=== PATIENT | female | born 1960 | race Caucasian/White ===

== ENCOUNTER 2019-04-14 08:39 | Outpatient (CLI) | payer BC, SELFPAY ==
--- NOTE | ~2019-04-14 | MM_ITS ---
EXAMINATION: MM screening [place] BI w jayna HISTORY: Screening mammogram TECHNIQUE: Craniocaudal and mediolateral oblique 3-D tomosynthesis images were obtained and synthetic 2-D images were generated. CAD analysis was submitted and interpreted. COMPARISON: 11/06/2014 bilateral digital screening mammogram BREAST PARENCHYMAL COMPOSITION: The breasts are heterogeneously dense, which may obscure small masses . FINDINGS: Stable fibroglandular asymmetry. There is no evidence of suspicious mass, calcification, or architectural distortion to suggest malignancy in either breast. There has been no suspicious interv al change. IMPRESSION: 1. No mammographic evidence of malignancy. 2. Recommend routine screening mammography in one year. BI-RADS Category 2: Benign finding(s). Reviewed, dictated and finalized at location A. 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
--- NOTE | ~2019-04-14 | DEXA_ITS ---
Bone Density Report Name: Lorie Mcrae Age: 59 Sex: Female Ethnicity: White Date of : 1960 Indication: postmenopausal; height loss; hysterectomy; Referring Provider: Lisset Napier Study: Bone densitometry was performed. Exam Date: April 14, 2019 Accession number: [id number] Bone Density: Region BMD T-score Z-score Classification AP Spine (L1-L4) 0.923 -1.1 0.2 Osteopenia Femoral Neck (Left) 0.639 -1.9 -0.7 Osteopenia Total Hip (Left) 0.711 -1.9 -1.0 Osteopenia Total Hip Bilateral Avg 0.672 -2.2 -1.4 Osteopenia Femoral Neck (Right) 0.545 -2.7 -1.5 Osteoporosis Total Hip (Right) 0.632 -2.5 -1.7 Osteoporosis World Health Organization criteria for BMD impression classify patients as: Normal (T-score at or above -1.0), Osteopenia (T-score between -1.0 and -2.5), or Osteoporosis (T-score at or below -2.5). 10-year Fracture Risk: FRAX not reported because: Some T-score for Spine Total or Hip Total or Femoral Neck at or below -2.5 Clinical Information Provided by Patient: Has the following medical conditions: Hysterectomy Patient maximum height was 68.5 Menopause Age: 34 No regular weight bearing exercise Does not regularly consume dairy products Onset of menses at age 14 Number of children 1 Impression: The patient has osteoporosis, based on the Right Femoral Neck T-score. Discussion: INCREASED RISK OF FRACTURE. BONE DENSITY IS UNDESIRABLY LOW AT ONE OR MORE SKELETAL SITES, CONSISTENT WITH POSTMENOPAUSAL OSTEOPOROSIS. This patient's lowest T-score meets the World Health Organization's (WHO) criteria for osteoporosis at one or more sites (T-score -2.5 or below). In untreated patients, the risk of osteoporotic fracture increases approximately two-fold for each 1.0 SD decrease in T-score. Low bone density is not the only risk factor for fracture; also consider factors such as patient's age, frailty or poor health, risk of falling, risk of injury, previous osteoporotic fracture, family history of osteoporosis, cigarette smoking, low body weight, etc. Not everyone with low bone mineral density has osteoporosis; osteomalacia and other metabolic bone disorders should also be considered. Patients who have osteoporosis should be evaluated for specific diseases and conditions (secondary causes) that may cause or contribute to bone loss. The [place] Association of Clinical Endocrinologists (AACE) and National Osteoporosis Foundation (NOF) recommend pharmacologic intervention for all postmenopausal women whose T-score is in this range. The patient should follow a healthful lifestyle (good nutrition with adequate calcium and vitamin D, and appropriate weight-bearing exercise). Follow-Up: Consider a repeat BMD and Vertebral Fracture Assessment (VFA) exam in 2 years or sooner if medically necessary, to reassess this patient'
== END 2019-04-14 08:40 | disposition home or self-care (01) ==
LOC: ANHIMG 08:42
PROVIDERS: PCP Internal Medicine; Visit Provider Internal Medicine
DX: Z12.31 Encounter for screening mammogram for malignant neoplasm of breast (principal); Z78.0 Asymptomatic menopausal state; M85.89 Other specified disorders of bone density and structure, multiple sites; M81.0 Age-related osteoporosis without current pathological fracture
CPT/HCPCS: 77063; 77067; 77080

== ENCOUNTER 2019-07-17 06:17 | Outpatient (CLI) | payer MEDICARE, SELFPAY | END 2019-07-17 06:18 | disposition home or self-care (01) | PROVIDERS: PCP Internal Medicine; Visit Provider Internal Medicine Gastroenterology | DX: Z01.812 Encounter for preprocedural laboratory examination (principal); Z20.828 Contact with and (suspected) exposure to other viral communicable diseases | CPT/HCPCS: 87635; C9803; U0003 ==

== ENCOUNTER 2019-07-19 00:47 | Day surgery (SDC) | payer MEDICARE, SELFPAY ==
[2019-07-14 14:33] VITALS: BMI 21.1
[2019-07-19 09:35] VITALS: BP 118/88; PULSE 97; RESP 18; TEMP 37.3; O2SAT 98
[2019-07-19] MEDS: LACTATED RINGERS 1,000 ML 150 ML IV CONT (09:43)
--- NOTE | 2019-07-19 09:47 | WPDANESEPPF ---
Anes - Initial Pre Proc Eval Procedure: Operation Date: 07/19/19 10:30 Proposed Procedures p Esophagogastroduodenoscopy & Screening Colonoscopy - Mitchel Gottlieb MD Date/Time: 07/19/19 09:47 Surgeon: Mitchel Gottlieb MD Pre Op Diagnosis: Gerd/ Neoplasm Screening Patient Data Age: 59 Gender: F Height: 5 ft 9 in Weight: 64.1 kg Last Vital Signs Temp 99.1 F 07/19/19 09:35 Pulse 97 07/19/19 09:35 Resp 18 07/19/19 09:35 BP 118/88 07/19/19 09:35 Pulse Ox 98 07/19/19 09:35 Allergies Allergy/AdvReac Type Severity Reaction Status Date / Time No Known Allergies Allergy Verified 07/19/19 09:23 Home Medications Medication Instructions Recorded Confirmed Type atorvastatin 10 mg PO DAILY 07/14/19 07/14/19 History bupropion HCl 150 mg PO DAILY 07/14/19 07/14/19 History fluoxetine 40 mg PO DAILY 07/14/19 07/14/19 History Patient hx anesthesia problems: none Family hx anesthesia problems: none PMFSH Past Medical History Medical History (Updated 07/19/19 @ 09:46 by Tiburcio Man MD) Depression GERD (gastroesophageal reflux disease) Stroke L sided at age 26 years, now with residual R sided weakness Surgical History Surgical History History of cholecystectomy Social History Social History Smoking packs per day: 1 Smoking cigarettes per day: 20.0 Years smoked: 40 Smoking pack-years: 40.00 Smoking status: Current every day smoker Tobacco type: cigarettes Second hand tobacco smoke exposure: No Alcohol intake: never Substance use: current Gender identity (if verbalized by the patient): Female Spiritual care concerns: No Agree to blood products: Yes Anes - Eval Final PreProcedure Day of Procedure 07/19/19 09:47 Patient weight: normal Heart: regular rate and rhythm Lungs: clear to auscultation Airway: Mallampati scale class III Neurological: alert and oriented Last oral intake: >/= 8 hours ASA classification: III Emergent: no Anesthetic plan: proceed Anesthesia type and monitoring: general GIVS and standard monitoring Informed Consent: The patient's anesthetic plan and its attendant risks and benefits were discussed with the patient/family/POA. Questions were solicited and answers provided to the satisfaction of the patient/family/POA.
--- NOTE | 2019-07-19 10:23 | PM.HPGS ---
History of Present Illness History of Present Illness Consent: Risks, benefits, and alternatives have been discussed and questions answered. Patient agrees to proceed with procedure. Chief complaint: Gerd/ Neoplasm Screening Narrative: Lorie Mcrae is a 59 year old female GERD taking antacids OTC, personal history of colon polyps and father with rectal cancer, she is due to have another colonoscopy Review of Systems Constitutional: Constitutional: Denies headache(s) and Denies weakness Eyes: Eyes: Denies blurry vision ENT: Reports Normal hearing present, Denies headache(s) and Denies neck pain Cardiovascular: Cardiovascular: Denies chest pain and Denies dyspnea Respiratory: Respiratory: Denies dyspnea Gastrointestinal: Gastrointestinal: Reports no additional gastrointestinal complaints Genitourinary: Genitourinary: Denies dysuria Musculoskeletal: Musculoskeletal: Denies neck pain Integumentary/Breasts: Skin/Breast: Denies dry skin Neurologic: Reports Normal hearing present, Denies headache(s) and Denies weakness Psychiatric: Psychiatric: Denies anxiety Endocrine: Endocrine: Denies change in body appearance Hematologic/Lymphatic: Hematologic/Lymphatic: Denies easy bleeding Allergic/Immunologic: Allergic/Immunologic: Denies urticaria PMFSH Past Medical History Medical History (Updated 07/19/19 @ 10:24 by Mitchel Gottlieb MD) Adenomatous colon polyp Depression Family history of colon cancer in father GERD (gastroesophageal reflux disease) GERD (gastroesophageal reflux disease) Stroke L sided at age 26 years, now with residual R sided weakness Surgical History Surgical History History of cholecystectomy Social History Social History Smoking packs per day: 1 Smoking cigarettes per day: 20.0 Years smoked: 40 Smoking pack-years: 40.00 Smoking status: Current every day smoker Tobacco type: cigarettes Second hand tobacco smoke exposure: No Alcohol intake: never Substance use: current Gender identity (if verbalized by the patient): Female Spiritual care concerns: No Agree to blood products: Yes Meds Home Medications and Allergies Home Medications Medication Instructions Recorded Confirmed Type atorvastatin 10 mg PO DAILY 07/14/19 07/14/19 History bupropion HCl 150 mg PO DAILY 07/14/19 07/14/19 History fluoxetine 40 mg PO DAILY 07/14/19 07/14/19 History Allergies Allergy/AdvReac Type Severity Reaction Status Date / Time No Known Allergies Allergy Verified 07/19/19 09:23 Vital Signs Vital Signs - 24 hr 07/19/19 09:35 Temperature 99.1 F Pulse Rate 97 Respiratory Rate 18 Blood Pressure 118/88 Pulse Oximetry 98 Exam Const: General: comfortable and no acute distress HENMT: General nose exam: Normal nares present Eyes: General: appearance normal, both eyes and all related structures Neck: Neck: no JVD Resp: Auscultation: clear to auscultation bilaterally Cardio: Rate: regular rate Rhythm: regular rhythm GI: Inspection: non-distended GI Palp: Yes Soft to palpation Skin: General skin exam: normal color Neuro: General: gait normal Speech: normal speech Extrem: General: normal to inspection Psych: Mental Status: mental status grossly normal Assessment and Plan Assessment and plan (1) Adenomatous colon polyp: Code(s): D12.6 - Benign neoplasm of colon, unspecified Status: Acute Assessment and Plan: will proceed with colonoscopy (2) Family history of colon cancer in father: Code(s): Z80.0 - Family history of malignant neoplasm of digestive organs Status: Acute (3) GERD (gastroesophageal reflux disease): Code(s): K21.9 - Gastro-esophageal reflux disease without esophagitis Status: Acute Assessment and Plan: egd to assess if esophagitis, etc.
[2019-07-19 11:00] VITALS: BP 96/64; PULSE 65; RESP 16; O2SAT 98
== END 2019-07-19 11:40 | disposition home or self-care (01) ==
PROVIDERS: PCP Internal Medicine; Visit Provider Internal Medicine Gastroenterology
PROC: 0DJ08ZZ Inspection of Upper Intestinal Tract, Via Natural or Artificial Opening Endoscopic (ICD-10-PCS; CPT 43235; principal; 2019-07-19 10:30)
DX: Z12.11 Encounter for screening for malignant neoplasm of colon (principal); D12.4 Benign neoplasm of descending colon; K57.30 Diverticulosis of large intestine without perforation or abscess without bleeding; K64.8 Other hemorrhoids; K21.9 Gastro-esophageal reflux disease without esophagitis; K29.50 Unspecified chronic gastritis without bleeding; D13.0 Benign neoplasm of esophagus; Z80.0 Family history of malignant neoplasm of digestive organs; F32.9 Major depressive disorder, single episode, unspecified; I69.351 Hemiplegia and hemiparesis following cerebral infarction affecting right dominant side; F17.210 Nicotine dependence, cigarettes, uncomplicated
CPT/HCPCS: 45385; 43239; 88305; J2704; J7120

== ENCOUNTER 2020-08-07 09:38 | Outpatient (CLI) | payer MEDICARE, SELFPAY ==
--- NOTE | ~2020-08-07 | MM_ITS ---
EXAMINATION: MM screening [place] BI w jayna HISTORY: Screening mammogram TECHNIQUE: Craniocaudal and mediolateral oblique 3-D tomosynthesis images were obtained and synthetic 2-D images were generated. CAD analysis was submitted and interpreted. COMPARISON: 04/14/2019, 11/06/2014 bilateral digital screening mammogram examinations BREAST PARENCHYMAL COMPOSITION: The breasts are heterogeneously dense, which may obscure small masses . FINDINGS: Approximately 6 mm circumscribed opacity is noted posteriorly in the upper outer quadrant r ight breast, most likely a benign intramammary lymph node (CC Tomosynthesis image 18/55; MLO Tomosynt hesis image /65). There is no evidence of suspicious mass, calcification, or architectural distorti on to suggest malignancy in either breast. There has been no suspicious interval change. IMPRESSION: 1. No mammographic evidence of malignancy. 2. Recommend routine screening mammography in one year. BI-RADS Category 2: Benign finding(s). Reviewed, dictated and finalized at location A.
== END 2020-08-07 09:39 | disposition home or self-care (01) ==
LOC: CHSIMG 09:39
PROVIDERS: PCP Internal Medicine; Visit Provider Internal Medicine
DX: Z12.31 Encounter for screening mammogram for malignant neoplasm of breast (principal)
CPT/HCPCS: 77063; 77067

== ENCOUNTER 2020-11-18 16:34 | Outpatient (CLI) | payer MEDICARE, SELFPAY ==
[2020-11-18 17:59] LABS: SARS-CoV-2 RNA PCR Positive (Negative)
== END 2020-11-18 16:35 | disposition home or self-care (01) ==
LOC: CHSLAB 16:37
PROVIDERS: PCP Internal Medicine; Visit Provider Internal Medicine
DX: U07.1 COVID-19 (principal)
CPT/HCPCS: C9803; U0003; U0005

== ENCOUNTER 2021-08-11 08:22 | Outpatient (CLI) | payer MEDICARE, SELFPAY ==
--- NOTE | ~2021-08-11 | MM_ITS ---
EXAMINATION: MM screening [place] BI w jayna HISTORY: Screening TECHNIQUE: Craniocaudal and mediolateral oblique 3-D tomosynthesis images were obtained and synthetic 2-D images were generated. CAD analysis was submitted and interpreted. COMPARISON: No prior mammogram is available for comparison at this institution. BREAST PARENCHYMAL COMPOSITION: The breasts are extremely dense, which lowers the sensitivity of mamm ography FINDINGS: There are scattered asymmetries in the outer aspect of the right breast. The left breast is stable without evidence for malignancy. IMPRESSION: 1. Developing right breast asymmetries. 2. Additional mammographic views and possible breast ultrasound are recommended. BI-RADS Category 0: Incomplete: Needs additional imaging evaluation. Reviewed, dictated and finalized at location A. IMPRESSION: 1. Developing right breast asymmetries. 2. Additional mammographic views and possible breast ultrasound are recommended . BI-RADS Category 0: Incomplete: Needs additional imaging evaluation.
== END 2021-08-11 08:23 | disposition home or self-care (01) ==
LOC: CHSIMG 08:23
PROVIDERS: PCP Internal Medicine; Visit Provider Internal Medicine
DX: Z12.31 Encounter for screening mammogram for malignant neoplasm of breast (principal)
CPT/HCPCS: 77063; 77067

== ENCOUNTER 2021-08-21 08:35 | Outpatient (CLI) | payer MEDICARE, SELFPAY ==
--- NOTE | ~2021-08-21 | MMUS_ITS ---
EXAMINATION: MM diagnostic [place] RT w jayna, US breast RT limited HISTORY: Scattered asymmetries in the outer aspect of right breast were reported on 08/11/2021 screeni ng mammogram TECHNIQUE: Additional 3-D tomosynthesis images of the right breast were performed and synthetic 2-D i mages were generated. CAD analysis was submitted and interpreted. High resolution upper outer and low er-outer quadrant right breast ultrasound was performed. COMPARISON: 08/11/2021 bilateral screening mammogram FINDINGS: MAMMOGRAPHIC FINDINGS: There is somewhat nodular appearing heterogeneously dense stroma. There is suggestion of a reniform m ass of approximately 3 x 6 mm dimension in the posterior upper outer right breast, possibly an intram ammary lymph node (MLO Tomosynthesis image 9/58).. Approximately 2.7 x 4.9 mm circumscribed opacity suggestive of lymph node is noted in the outer mid r ight breast (MLO Tomosynthesis image 9/58). Otherwise no suspicious mass or architectural distortion, skin thickening or retraction is detected. ULTRASOUND: 7:00 2 cm from nipple: Approximately 2 by 4.6 mm lymph node. 10:00 5 cm from nipple: 3.2 x 6.5 x 4.5 mm lymph node No suspicious mass or shadowing is detected. IMPRESSION: 1. Benign findings 2. Routine annual mammographic screening is recommended BI-RADS Category 2: Benign finding(s). Reviewed, dictated and finalized at location A. IMPRESSION: 1. Benign findings 2. Routine annual mammographic screening is recommended BI-RADS Category 2: Benign finding(s).
== END 2021-08-21 08:36 | disposition home or self-care (01) ==
PROVIDERS: PCP Internal Medicine; Visit Provider Internal Medicine
DX: R92.8 Other abnormal and inconclusive findings on diagnostic imaging of breast (principal)
CPT/HCPCS: 76642; 77061; 77065; G0279

== ENCOUNTER 2022-08-24 08:06 | Outpatient (CLI) | payer MEDICARE, SELFPAY ==
--- NOTE | ~2022-08-24 | DEXA_ITS ---
Bone Density Report Name: LINDA ELIZALDE Age: 62 Sex: Female Ethnicity: White Date of : 1960 Indication: postmenopausal; screening for osteoporosis; height loss; hysterectomy; Referring Provider: Lisset Napier Study: Bone densitometry was performed. Exam Date: August 24, 2022 Accession number: [id number] Bone Density: Region BMD T-score Z-score Classification AP Spine(L1-L4) 0.965 -0.7 0.8 Normal Femoral Neck (Left) 0.665 -1.7 -0.3 Osteopenia Total Hip (Left) 0.705 -1.9 -0.9 Osteopenia Femoral Neck (Right) 0.577 -2.5 -1.1 Osteoporosis Total Hip (Right) 0.666 -2.3 -1.2 Osteopenia Femoral Neck Mean 0.621 -2.1 -0.7 Osteopenia Total Hip Mean 0.685 -2.1 -1.1 Osteopenia World Health Organization criteria for BMD impression classify patients as: Normal (T-score at or above -1.0), Osteopenia (T-score between -1.0 and -2.5), or Osteoporosis (T-score at or below -2.5). 10-year Fracture Risk: FRAX not reported because: Some T-score for Spine Total or Hip Total or Femoral Neck at or below -2.5 Clinical Information Provided by Patient: Smokes Has the following medical conditions: Hysterectomy Patient maximum height was 68 Menopause Age: 62 No regular weight bearing exercise Does not regularly consume dairy products Drinks caffeinated beverages Onset of menses at age 14 Number of children 1 Impression: The patient has osteoporosis, based on the Right Femoral Neck T-score. The patient has risk factors, including: smoking. Discussion: INCREASED RISK OF FRACTURE. BONE DENSITY IS UNDESIRABLY LOW AT ONE OR MORE SKELETAL SITES, CONSISTENT WITH POSTMENOPAUSAL OSTEOPOROSIS. This patient's lowest T-score meets the World Health Organization's (WHO) criteria for osteoporosis at one or more sites (T-score -2.5 or below). In untreated patients, the risk of osteoporotic fracture increases approximately two-fold for each 1.0 SD decrease in T-score. Low bone density is not the only risk factor for fracture; also consider factors such as patient's age, frailty or poor health, risk of falling, risk of injury, previous osteoporotic fracture, family history of osteoporosis, cigarette smoking, low body weight, etc. Not everyone with low bone mineral density has osteoporosis; osteomalacia and other metabolic bone disorders should also be considered. Patients who have osteoporosis should be evaluated for specific diseases and conditions (secondary causes) that may cause or contribute to bone loss. The [place] Association of Clinical Endocrinologists (AACE) and National Osteoporosis Foundation (NOF) recommend pharmacologic intervention for all postmenopausal women whose T-score is in this range. The patient should follow a healthful lifestyle (good nutrition with adequate calcium and vitamin D, and appropriate weight-bearing exercise). Follow-Up: Consider a repeat BMD and Vertebral Fract
--- NOTE | ~2022-08-24 | MM_ITS ---
EXAMINATION: MM screening [place] BI w jayna HISTORY: Screening mammogram TECHNIQUE: Craniocaudal and mediolateral oblique 3-D tomosynthesis images were obtained and synthetic 2-D images were generated. CAD analysis was submitted and interpreted. COMPARISON: 08/21/2021 diagnostic right mammogram and limited right breast ultrasound 08/11/2021, 08/07/2020, 04/14/2019 bilateral screening mammogram examinations BREAST PARENCHYMAL COMPOSITION: The breasts are heterogeneously dense, which may obscure small masses . FINDINGS: There is no evidence of suspicious mass, calcification, or architectural distortion to sugg est malignancy in either breast. There has been no suspicious interval change. IMPRESSION: 1. No mammographic evidence of malignancy. 2. Recommend routine screening mammography in one year. BI-RADS Category 1: Negative Reviewed, dictated and finalized at location A.
--- NOTE | ~2022-08-24 | CT_ITS ---
CT Scan of the Chest without Contrast: Clinical Indication: Lung cancer screening, smoking history Technique: Contiguous sections were acquired throughout the chest without intravenous contrast. Dose reduction technique was used on this scan by utilizing automated exposure control and iterative recon struction technique. The dose-length product (DLP) was 62.25 mGy-cm. Findings: There is no evidence of any significant mediastinal, hilar or axillary lymphadenopathy. The mediastin al soft tissues appear normal. There is no evidence of pleural or pericardial effusion. The lungs are clear, aside from linear bibasilar scarring. Images through the upper abdomen reveal no abnormalities. Impression: Lung RADS 2: Benign appearance. 12 month follow-up screening CT advised. Reviewed, dictated and finalized at location . Impression: Lung RADS 2: Benign appearance. 12 month follow-up screening CT advised.
== END 2022-08-24 08:07 | disposition home or self-care (01) ==
LOC: CHSIMG 08:10
PROVIDERS: PCP Internal Medicine; Visit Provider Internal Medicine
DX: Z12.31 Encounter for screening mammogram for malignant neoplasm of breast (principal); M81.0 Age-related osteoporosis without current pathological fracture; M85.89 Other specified disorders of bone density and structure, multiple sites; Z12.2 Encounter for screening for malignant neoplasm of respiratory organs; Z87.891 Personal history of nicotine dependence
CPT/HCPCS: 71271; 77063; 77067; 77080

== ENCOUNTER 2022-10-26 14:58 | Emergency (ER) | payer MEDICARE, SELFPAY ==
--- NOTE | 2022-10-26 15:05 | ED.GENADULT ---
HPI - General Adult General Chief complaint: Allergic Reaction Stated complaint: ALLERGIC REACTION/BEE STINGS Time Seen by Provider: 10/26/22 14:58 Source: patient and EMS Mode of arrival: EMS Limitations: no limitations History of Present Illness HPI narrative: 62 year old female arrives to the Emergency Department via EMS. Patient was stung multiple times by bees while working in yard just prior to arrival. Patient has been stung twice in past. First episode she got a bee in her mouth that was inside soda can. Caused swelling to tongue and throat. Second episode was by a wasp. She passed out that time. EMS gave patient Epi 0.5 mg SQ x 2, SoluMedrol 125 mg IVP, Benadryl 50 mg IVP and Fentanyl 70 mg IVP. Onset (ago): minute(s) Location: face, neck, upper extremity and lower extremity Pain Consistency: constant Exacerbating factors: none Associated symptoms: denies other symptoms Treatments prior to arrival: other (Epi 0.5 mg SQ x 2, Benadryl 50 mg IVP, Solumedrol 125 mg IVP, Fentanyl 70 mg IVP) Related Data Home Medications Medication Instructions Recorded Confirmed atorvastatin 10 mg tablet 10 mg PO DAILY 07/14/19 10/26/22 fluoxetine 20 mg capsule 60 mg PO DAILY 10/26/22 10/26/22 hydroxyzine HCl 25 mg tablet 25 mg PO TID 10/26/22 10/26/22 Allergies Allergy/AdvReac Type Severity Reaction Status Date / Time No Known Allergies Allergy Verified 10/26/22 15:54 Review of Systems Review of Systems: All systems reviewed & are unremarkable except as noted in HPI and below Constitutional: Constitutional: Reports as per HPI and Reports no additional constitutional complaints Eyes: Eyes: Reports as per HPI and Reports no additional eye complaints ENT: Reports system reviewed and no additional complaints, except as documented Cardiovascular: Cardiovascular: Reports as per HPI and Reports no additional cardiovascular complaints Respiratory: Respiratory: Reports as per HPI and Reports no additional respiratory complaints Gastrointestinal: Gastrointestinal: Reports as per HPI and Reports no additional gastrointestinal complaints Genitourinary: Genitourinary: Reports no additional female genitourinary complaints Musculoskeletal: Musculoskeletal: Reports no additional musculoskeletal complaints Integumentary/Breasts: Skin/Breast: Reports system reviewed and no additional complaints, except as docu Neurologic: Reports system reviewed and no additional complaints, except as documented Psychiatric: Psychiatric: Reports no additional psychiatric complaints Endocrine: Endocrine: Reports no additional endocrine complaints Hematologic/Lymphatic: Hematologic/Lymphatic: Reports no additional hematologic/lymphatic complaints Allergic/Immunologic: Allergic/Immunologic: Reports no additional allergic/immunologic complaints [facility] Past Medical History Medical History (Updated 10/26/22 @ 16:35 by Toy Dye MD) Adenomatous colon polyp Bee sting Depression Family history of colon cancer in father GERD (gastroesophageal reflux disease) GERD (gastroesophageal reflux disease) Stroke L sided at age 26 years, now with residual R sided weakness Surgical History Surgical History History of cholecystectomy Family History Family History Sibling Cerebrovascular accident Father Heart disease s/p CABG Hypertension Rectal adenocarcinoma Alzheimer disease Parkinson disease Social History Social History Smoking packs per day: 1 Smoking cigarettes per day: 20.0 Years smoked: 40 Smoking pack-years: 40.00 Smoking status: Current every day smoker Tobacco type: cigarettes Second hand tobacco smoke exposure: No Alcohol intake: never Substance use: current Living arrangements: with family Gender identity (if verbalized by the patient
[2022-10-26 15:06] VITALS: BP 145/88; PULSE 98; RESP 22; TEMP 37.2; O2SAT 90
[2022-10-26 15:15] VITALS: BP 134/86; PULSE 88; RESP 20; O2SAT 94
[2022-10-26 15:45] VITALS: BP 138/85; PULSE 86; RESP 20; O2SAT 94
[2022-10-26 16:15] VITALS: BP 124/77; PULSE 81; RESP 20; O2SAT 92
[2022-10-26 16:41] VITALS: BP 129/77; PULSE 76; RESP 20; O2SAT 92
[2022-10-26 16:43] VITALS: TEMP 36.9
== END 2022-10-26 17:03 | disposition home or self-care (01) ==
PROVIDERS: Emergency Provider Emergency Medicine; PCP Internal Medicine
DX: T63.441A Toxic effect of venom of bees, accidental (unintentional), initial encounter (principal); F17.210 Nicotine dependence, cigarettes, uncomplicated; Z79.899 Other long term (current) drug therapy
CPT/HCPCS: 99283

== ENCOUNTER 2022-12-25 11:46 | Outpatient (CLI) | payer MEDICARE, SELFPAY ==
--- NOTE | ~2022-12-25 | XR_ITS ---
EXAMINATION: XR chest 2V 12/25/2022 12:21 INDICATION: Dizziness and cough PROCEDURE: 2 view chest COMPARISON: 02/10/2019 FINDINGS: The lungs are clear. The cardiomediastinal silhouette is within normal limits. There are no pleural effusions. There is no pneumothorax suspected. There are cholecystectomy clips. IMPRESSION: 1: NO ACUTE CARDIOPULMONARY DISEASE. Reviewed, dictated and finalized at location B.
[2022-12-25 12:10] LABS: Appearance Urine Clear (Clear); Bilirubin Urine Negative (Negative); Blood Urine Negative (Negative); Color Urine Light Yellow (Yellow); Glucose Urine UA Negative (Negative); Ketones Urine Negative (Negative); Leukocyte Esterase Ur Negative (Negative); Nitrate Urine Negative (Negative); Protein Urine Negative (Negative); Urobilinogen Urine 0.2 mg/dL (0.2-1.0); pH Urine 6.5 (5.0-8.0)
[2022-12-25 12:11] LABS: Add Urine Microscopic? NO
== END 2022-12-25 11:47 | disposition home or self-care (01) ==
LOC: CHSLAB 11:48
PROVIDERS: PCP Internal Medicine; Visit Provider Nurse Practitioner Family
DX: J06.9 Acute upper respiratory infection, unspecified (principal); N39.0 Urinary tract infection, site not specified
CPT/HCPCS: 71046; 81003; 87086; 87088

== ENCOUNTER 2023-08-30 13:49 | Outpatient (CLI) | payer MEDICARE, SELFPAY ==
--- NOTE | ~2023-08-30 | MM_ITS ---
EXAMINATION: MM screening [facility] BI w jayna HISTORY: Screening mammogram TECHNIQUE: Craniocaudal and mediolateral oblique 3-D tomosynthesis images were obtained and synthetic 2-D images were generated. CAD analysis was submitted and interpreted. COMPARISON: 08/24/2022, 08/21/2021, 08/11/2021, 08/07/2020, 04/14/2019 BREAST PARENCHYMAL COMPOSITION:Dense: The breasts are heterogeneously dense, which may obscure small masses. FINDINGS: No suspicious mass, calcification, or architectural distortion are identified in either ben ast to suggest malignancy. There has been no suspicious interval change. IMPRESSION: No mammographic evidence of malignancy. Recommend routine screening mammography in one year. BI-RADS Category 1: Negative Reviewed, dictated and finalized at [facility].
== END 2023-08-30 13:50 | disposition home or self-care (01) ==
LOC: CHSIMG 13:50
PROVIDERS: PCP Internal Medicine; Visit Provider Internal Medicine
DX: Z12.31 Encounter for screening mammogram for malignant neoplasm of breast (principal)
CPT/HCPCS: 77063; 77067

== ENCOUNTER 2024-02-29 10:51 | Emergency (ER) | payer MEDICARE, SELFPAY ==
--- NOTE | ~2024-02-29 | CT_ITS ---
Noncontrast CT scan of the lumbar spine CLINICAL HISTORY: Back pain TECHNIQUE: Axial noncontrast imaging of the lumbar spine was performed. Sagittal and coronal reformat rose images were constructed. Dose reduction technique was used on this scan by utilizing automated ex posure control and iterative reconstruction technique. The dose-length product (DLP) was 380.27 mGy-c m. FINDINGS: No acute fracture or subluxation identified. Vertebral bodies maintain normal height and al ignment. At L1-L2, there is mild degenerative disc narrowing. No disc bulge or herniation. No spinal canal bryson nosis or definite neural foraminal narrowing. At L2-L3, there is moderate degenerative distended. Diffuse disc bulge and advanced facet arthropathy result in moderate spinal canal stenosis/thecal sac compression. No definite neural foraminal narrow ing. At L3-L4, there is mild to moderate degenerative disc narrowing. Disc bulge and advanced facet arthro sebastian result in mild to moderate spinal canal stenosis/thecal sac compression. There is probable mode rate bilateral neural foraminal narrowing, right worse than left. At L4-L5, there is moderate degenerative distended. Disc bulge and facet arthropathy are present with mild central canal stenosis. There is probable severe bilateral neural foraminal narrowing. At L5-S1, there is minimal disc bulge with advanced facet arthropathy. No central canal stenosis. The re is mild bilateral neural foraminal narrowing. Paravertebral soft tissues are unremarkable. Impression: No acute abnormality evident. Moderate to advanced degenerative spondylosis, as above. Reviewed, dictated and finalized at [facility]. [place]ER Impression: No acute abnormality evident. Moderate to advanced degenerative spondylosis, as above.
[2024-02-29 10:52] VITALS: BP 137/99; PULSE 74; RESP 16; TEMP 36.3; O2SAT 96
--- NOTE | 2024-02-29 11:44 | ED_ITS ---
HPI - General Adult General Chief complaint: Back Pain/Injury Stated complaint: back pain Time Seen by Provider: 02/29/24 11:44 Source: patient and other Mode of arrival: ambulatory Limitations: no limitations History of Present Illness HPI narrative: 64-year-old white female was moving boxes this past weekend started having pain yesterday lower back bilaterally. Denies any numbness or tingling problems voiding or stooling fever cough runny nose or any other complaints she has been taking ibuprofen for this without much relief. Denies any bleeding or bruising swelling lumps or bumps. Hurts to walk and move around. Denies any other complaints Related Data Home Medications ?Medication ?Instructions ?Recorded ?Confirmed ?Last Taken ?Type atorvastatin 10 mg tablet 10 mg PO DAILY 07/14/19 10/26/22 10/26/22 History fluoxetine 20 mg capsule 60 mg PO DAILY 10/26/22 10/26/22 10/26/22 History hydroxyzine HCl 25 mg tablet 25 mg PO TID 10/26/22 10/26/22 10/26/22 History Allergies Allergy/AdvReac Type Severity Reaction Status Date / Time No Known Allergies Allergy Verified 02/29/24 10:51 Review of Systems Review of Systems: All systems reviewed & are unremarkable except as noted in HPI and below PMFSH Past Medical History Medical History Bee sting GERD (gastroesophageal reflux disease) Family history of colon cancer in father Adenomatous colon polyp GERD (gastroesophageal reflux disease) Depression Stroke L sided at age 26 years, now with residual R sided weakness Surgical History Surgical History History of cholecystectomy Family History Family History Sibling Cerebrovascular accident Father Heart disease s/p CABG Hypertension Rectal adenocarcinoma Alzheimer disease Parkinson disease Social History Social History Smoking packs per day: 1 Smoking cigarettes per day: 20.0 Years smoked: 40 Smoking pack-years: 40.00 Smoking status: Current every day smoker Tobacco type: cigarettes Second hand tobacco smoke exposure: No Alcohol intake: never Substance use: current Living arrangements: with family Gender identity (if verbalized by the patient): Female Spiritual care concerns: No Agree to blood products: Yes Exam Narrative: White female patient with moderate distress when trying to move on the table..? Head normocephalic, atraumatic.? Eyes conjunctiva pink sclera nonicteric.? Extraocular movements are intact.? Ears externally normal.? TMs are normal. ?Oropharynx is clear with moist mucous membranes without exudates.? Neck is supple nontender no lymphadenopathy.? Back Bilateral lower lumbar tenderness. Negative straight leg raise bilaterally hips normal full range of motion.? Lungs are clear.? Heart is regular rate and rhythm without murmurs gallops or rubs.? Chest wall nontender. Abdomen is soft and nontender no hepatosplenomegaly or masses no CVA tenderness no abdominal bruits.? Extremities no cyanosis clubbing or edema.? Skin is warm and dry without rashes or lesions.? Neurological patient is alert and oriented x4.? Motor and sensory grossly intact.? Gait is normal. Course Vital Signs Vital signs: Vital Signs Temperature 36.3 C L 02/29/24 10:52 Pulse Rate 74 02/29/24 10:52 Respiratory Rate 16 02/29/24 10:52 Blood Pressure 137/99 H 02/29/24 10:52 Pulse Oximetry 96 02/29/24 10:52 Oxygen Delivery Room Air 02/29/24 10:52 Temperature 36.3 C L 02/29/24 10:52 Pulse Rate 74 02/29/24 10:52 Respiratory Rate 16 02/29/24 10:52 Blood Pressure 137/99 H 02/29/24 10:52 Pulse Oximetry 96 02/29/24 10:52 Oxygen Delivery Room Air 02/29/24 10:52 Medical Decision Making [facility] Narrative Medical decision making narrative: ?Patient placed in room: One ? History and physical was performed. CT lumbar spine without FINDINGS: No acute fracture or subluxation identified. Vertebral bodies maintain normal height and alignment. At L1-L2, there is mild degenerative disc narrowing. No disc bulge or herniation. No spinal canal stenosis or definite neural foraminal narrowing. At L2-L3, there is moderate degenerative distended. Diffuse disc bulge and advanced facet arthropathy result in moderate spinal canal stenosis/thecal sac compression. No definite neural foraminal narrowing. At L3-L4, there is mild to moderate degenerative disc narrowing. Disc bulge and advanced facet arthropathy result in mild to moderate spinal canal stenosis/thecal sac compression. There is probable moderate bilateral neural foraminal narrowing, right worse than left. At L4-L5, there is moderate degenerative distended. Disc bulge and facet arthropathy are present with mild central canal stenosis. There is probable severe bilateral neural foraminal n arrowing. At L5-S1, there is minimal disc bulge with advanced facet arthropathy. No central canal stenosis. There is mild bilateral neural foraminal narrowing. Paravertebral soft tissues are unremarkable. Impression: No acute abnormality evident. Moderate to advanced degenerative spondylosis, as above. Patient felt much better after the Toradol. Independent Historian: friend External Source Review: Differential Dx includes but not limited to: fracture dislocation degenerative disc disease Medications were Reviewed: home medicines reviewed Medications given: Toradol 30 IM Independently Interpreted by me: Shared decision Making: Evaluation was discussed all questions were asked and answered patient agreed with the plan Flexeril 10 3 times a day [place] 5 4 times a day as needed follow-up with primary care provider this week Social Situation Impacting Patients Care: Discussed with Dr. KOWALSKI DIAGNOSIS: low back pain strain DISPOSITION : discharge home CONDITION AT DISCHARGE: stable improved Vital Signs Vital Signs: Vital Signs Temperature 36.3 C L 02/29/24 10:52 Pulse Rate 74 02/29/24 10:52 Respiratory Rate 16 02/29/24 10:52 Blood Pressure 137/99 H 02/29/24 10:52 Pulse Oximetry 96 02/29/24 10:52 Oxygen Delivery Room Air 02/29/24 10:52 Temperature 36.3 C L 02/29/24 10:52 Pulse Rate 74 02/29/24 10:52 Respiratory Rate 16 02/29/24 10:52 Blood Pressure 137/99 H 02/29/24 10:52 Pulse Oximetry 96 02/29/24 10:52 Oxygen Delivery Room Air 02/29/24 10:52 Discharge Plan Discharge Clinical Impression: Low back pain Qualifiers: Chronicity: acute Back pain laterality: bilateral Sciatica presence: without sciatica Qualified Code(s): M54.50 - Low back pain, unspecified Low back strain Qualifiers: Encounter type: initial encounter Qualified Code(s): S39.012A - Strain of muscle, fascia and tendon of lower back, initial encounter Patient Disposition: Home, Self-Care Condition: Stable Instructions: Back Pain (ED) Additional Instructions: Flexeril 10 mg 3 times a day for 5 days. [place] 5 4 times a day as needed for pain. Follow up with her primary care provider this week. Return if you get worse or develops any new symptoms. Patient Language: Armenian Prescriptions: New cyclobenzaprine 10 mg tablet 10 mg PO TID PRN (Reason: muscle spasm) 5 Days Qty: 15 0RF hydrocodone-acetaminophen 5-325 mg tablet 1 tablet PO Q6H PRN (Reason: pain) Qty: 10 0RF No Action hydroxyzine HCl 25 mg tablet 25 mg PO TID fluoxetine 20 mg capsule 60 mg PO DAILY diphenhydramine HCl 50 mg tablet 50 mg PO Q6H PRN (Reason: itching) Qty: 20 0RF tramadol 50 mg tablet 50 mg PO Q6H PRN (Reason: pain) Qty: 15 0RF atorvastatin 10 mg tablet 10 mg PO DAILY omeprazole 20 mg capsule,delayed release(DR/EC) 20 mg PO DAILY Qty: 60 0RF Follow-up/Referrals: Lisset Napier MD [Primary Care Provider] -
[2024-02-29 12:00] VITALS: BP 134/88; PULSE 63; RESP 17; O2SAT 93
[2024-02-29] MEDS: KETOROLAC 30 MG/ML VIAL (*BKC) IM (12:16)
[2024-02-29 13:00] VITALS: BP 117/87; PULSE 64; RESP 16; O2SAT 93
[2024-02-29 13:50] VITALS: BP 127/92; PULSE 68; RESP 16; TEMP 37.1; O2SAT 93
== END 2024-02-29 13:50 | disposition home or self-care (01) ==
PROVIDERS: Emergency Provider Emergency Medicine; PCP Internal Medicine
DX: S39.012A Strain of muscle, fascia and tendon of lower back, initial encounter (principal); I69.351 Hemiplegia and hemiparesis following cerebral infarction affecting right dominant side; F17.210 Nicotine dependence, cigarettes, uncomplicated; X50.0XXA Overexertion from strenuous movement or load, initial encounter
CPT/HCPCS: 72131; 96372; 99284; J1885

== ENCOUNTER 2024-03-14 10:56 | Emergency (ER) | payer MEDICARE, SELFPAY ==
[2024-03-14] VITALS (15 sets, daily range): BP systolic 119–146; BP diastolic 86–99; PULSE 72–106; RESP 16–18; TEMP 36.5–36.7; O2SAT 91–98
--- NOTE | ~2024-03-14 | CT_ITS ---
EXAMINATION: CT brain wo con DATE: 03/14/2024 11:39 INDICATION: Left hand numbness radiating to the elbow. Cerebrovascular accident. TECHNIQUE: Computed tomography (CT) of the head was performed without intravenous contrast. The mA wa s adjusted according to patient size. Iterative reconstruction technique was employed. The dose-lengt h product was 605.33 mGy-cm. COMPARISON: Head CT 01/03/2012 FINDINGS: There is an old infarct involving the left frontal, parietal, and temporal lobes, left insu la, left basal ganglia, and left internal capsule in the expected distribution of the left middle cer ebral artery. There are scattered areas of low attenuation in the cerebral white matter. There is an infarct in the right frontoparietal region. There is no intracranial hemorrhage or abnormal mass lesi on. There is mild ex vacuo dilatation of left lateral ventricle. The paranasal sinuses are clear. The mastoid air cells are normal. The orbits are normal. IMPRESSION: 1. Infarct in the right frontoparietal region, likely acute or subacute. 2. Large old infarct in the expected distribution of left middle cerebral artery. 3. Extensive nonspecific cerebral white matter disease, which likely represents chronic small vessel ischemic disease. Reviewed, dictated and finalized at location A. IOPULMONARY SUPERVISOR IMPRESSION: 1. Infarct in the right frontoparietal region, likely acute or subacute. 2. Large old infarct in the expected distribution of left middle cerebral arter y. 3. Extensive nonspecific cerebral white matter disease, which likely represents chronic small vessel ischemic disease.
--- NOTE | ~2024-03-14 | CT_ITS ---
CT cervical spine wo con Ordering provider: Enoch Loza MD History: . HX of CVA, LT hand numbness radiates into elbow X 1 day . Comparison: None. Technique: CT of the cervical spine was performed without contrast. Sagittal and coronal reformatted images were also obtained and reviewed. Automated exposure control and iterative reconstruction elmer hnique were employed. The dose-length product was 299.09 mGy-cm. FINDINGS: VERTEBRAE: No subluxation or acute fracture. The occipital condyles are intact. DISC SPACES: Narrowing of the disc C4-C5, C5-C6 and C6-C7. Multilevel uncovertebral joint osteoarthri tic changes. Slight narrowing of the right foramen at the level of C4-C5. Right narrowing of the foramina at the level of C5-C6. Bilateral narrowing of the foramina at the level of C6-C7 more on the left side. PARASPINOUS SOFT TISSUES: Normal. IMPRESSION: No acute osseous abnormality cervical spine. Multilevel degenerative disc disease with multilevel intervertebral foraminal narrowing. Reviewed, dictated and finalized at location A. [place] GREETING CARD MERCHANDISER IMPRESSION: No acute osseous abnormality cervical spine. Multilevel degenerative disc disease with multilevel intervertebral foraminal n arrowing.
--- NOTE | 2024-03-14 11:11 | ECG_ITS ---
Test Date: 2024-03-14 11:23:42 Measurements Intervals [place] Rate: 87 P: 64 MN: 158 QRS: -39 QRSD: 94 T: 52 QT: 366 QTc: 440 Interpretive Statements SINUS RHYTHM LEFT AXIS DEVIATION [QRS AXIS < -30] LOW QRS VOLTAGE IN PRECORDIAL LEADS [QRS DEFLECTION < 1.0 mV IN CHEST LEADS] POSSIBLE ANTERIOR MYOCARDIAL INFARCTION , OF INDETERMINATE AGE [30 ms Q WAVE IN V3/V4, OR R < 0.2 mV IN V4] No previous ECG available for comparison Electronically Signed On 03-14-2024 15:07:38 [employer] WORK[employer] by Maryjane Hernandez M.D.
[2024-03-14 11:31] LABS: Basophils Absolute Auto 0.05 K/mm3 (0.00-0.10); Basophils Percent Auto 0.8 % (0.0-1.0); Eosinophils Absolute Auto 0.08 K/mm3 (0.02-0.50); Eosinophils Percent Auto 1.3 % (1.0-6.0); Hemoglobin 12.7 g/dL (12.0-15.0); Immature Granulocyte Absolute 0.01 K/mm3 (0.00-0.00); Immature Granulocyte Percent A 0.2 % (0.0-0.0); Lymphocytes Absolute Auto 1.45 K/mm3 (1.10-4.50); Lymphocytes Percent Auto 23.8 % (18.0-42.0); Mean Corpuscular HGB Conc 33.4 g/dL (32-36); Mean Corpuscular Hemoglobin 30.1 pg (27.0-31.0); Mean Platelet Volume 10.7 fl (9.2-11.8); Monocytes Absolute Auto 0.48 K/mm3 (0.10-0.90); Monocytes Percent Auto 7.9 % (2.0-11.0); Neutrophils Absolute Auto 4.01 K/mm3 (1.70-7.20); Platelet Count Result 261 K/mm3 (150-420); Red Blood Count 4.22 M/mm3 (4.20-5.40); Red Cell Distribution Width 13.2 % (11.6-14.4); White Blood Count 6.1 K/mm3 (4.8-10.8)
--- NOTE | 2024-03-14 11:47 | ED.EXTPRO ---
HPI - Extremity Problem General Chief complaint: Extremity Problem,Nontraumatic Stated complaint: hand numbness Time Seen by Provider: 03/14/24 10:57 Source: patient Mode of arrival: ambulatory Limitations: no limitations History of Present Illness HPI Narrative: Patient is a 64-year-old female with a significant past medical history that presents today for numbness and tingling in her left arm and hand. Patient does have a history of stroke when she was 26 years old and apparently has some right-sided deficit from that stroke. There is not much of a deficit however. But now she is having what started off as just some numbness and tingling on the left hand and forearm and arm. She does also have history of cervical stenosis and cervical osteoarthritis had pretty bad cervical spine. She was at her primary care physician office today because of the numbness was not going away and he told her to go to the ER to get a CT scan done because of her history. NIH score 1 from left hand weakness. Onset (ago): day(s) Pain Consistency: constant Location: left Severity scale (1-10): 4 Radiation: proximal Relieving factors: nothing Exacerbating factors: nothing Associated symptoms: denies other symptoms Related Data Home Medications ?Medication ?Instructions ?Recorded ?Confirmed ?Last Taken ?Type atorvastatin 10 mg tablet 10 mg PO DAILY 07/14/19 10/26/22 10/26/22 History fluoxetine 20 mg capsule 60 mg PO DAILY 10/26/22 10/26/22 10/26/22 History hydroxyzine HCl 25 mg tablet 25 mg PO TID 10/26/22 10/26/22 10/26/22 History Allergies Allergy/AdvReac Type Severity Reaction Status Date / Time No Known Allergies Allergy Verified 03/14/24 11:04 Review of Systems Review of Systems: All systems reviewed & are unremarkable except as noted in HPI and below Constitutional: Constitutional: Reports as per HPI Eyes: Eyes: Reports no additional eye complaints ENT: Reports system reviewed and no additional complaints, except as documented Cardiovascular: Cardiovascular: Reports no additional cardiovascular complaints Respiratory: Respiratory: Reports no additional respiratory complaints Gastrointestinal: Gastrointestinal: Reports no additional gastrointestinal complaints Genitourinary: Genitourinary: Reports no additional female genitourinary complaints Musculoskeletal: Musculoskeletal: Reports as per HPI Integumentary/Breasts: Skin/Breast: Reports system reviewed and no additional complaints, except as docu Neurologic: Reports as per HPI, Reports focal weakness and Reports numbness Psychiatric: Psychiatric: Reports no additional psychiatric complaints Endocrine: Endocrine: Reports no additional endocrine complaints Hematologic/Lymphatic: Hematologic/Lymphatic: Reports no additional hematologic/lymphatic complaints Allergic/Immunologic: Allergic/Immunologic: Reports no additional allergic/immunologic complaints [facility] Past Medical History Medical History Bee sting GERD (gastroesophageal reflux disease) Family history of colon cancer in father Adenomatous colon polyp GERD (gastroesophageal reflux disease) Depression Stroke L sided at age 26 years, now with residual R sided weakness Surgical History Surgical History History of cholecystectomy Family History Family History Sibling Cerebrovascular accident Father Heart disease s/p CABG Hypertension Rectal adenocarcinoma Alzheimer disease Parkinson disease Social History Social History Smoking packs per day: 1 Smoking cigarettes per day: 20.0 Years smoked: 40 Smoking pack-years: 40.00 Smoking status: Current every day smoker Tobacco type: cigarettes Second hand tobacco smoke exposure: No Alcohol intake: never Substance use: current Living arrangements: with family Gender identity (if verbalized by the patient): Female Spiritual care concerns: No Agree to blood products: Yes Exam Const: General: healthy appearing Nutritional Appearance: well nourished Orientation/consciousness: patient oriented x3 HENMT: Head: normal to inspection Ears: external ears normal Face/Nose/Sinus: Normal external nose present Face and sinus: normal facial exam Mouth: Yes Normal oral and palatal mucosa present Eyes: Conjunctivae: conjunctivae normal Pupils: Equal, round and reactive pupils present Neck: Neck: normal visual inspection Chest: Chest palpation & inspection: normal inspection of the chest Resp: Effort & Inspection: normal respiratory effort Auscultation: clear to auscultation bilaterally Cardio: Rate: regular rate Rhythm: regular rhythm GI: GI Palp: Yes Soft to palpation Back/Spine/Pelvis: Back: no CVA tenderness Skin: General skin exam: normal color Rashes: no rashes Wounds: no wounds Neuro: General: patient oriented x3 and moves all extremities Cranial nerves: Yes Nystagmus not present Other: left hand weakness Extrem: General: normal to inspection Psych: Mental Status: mental status grossly normal Affect: normal affect Attitude: cooperative Course Reevaluation(s) Reevaluation #1: CT scan the brain showed a acute/ subacute to infarct of the Right frontoparietal area. which makes as having left arm numbness and slight weakness. CT scan of the cervical spine also shows severe cervical stenosis down from C5-C7 and severe osteoarthritis as well. That also could be contributing to the symptoms of the numbness and tingling as well. Date: 03/14/24 Time: 13:01 Reevaluation #2: Spoke to [facility] and they will accept her for diagnosis of stroke and she will be transferred over there as soon as they have a bed for her. Date: 03/14/24 Time: 13:02 Vital Signs Vital signs: Vital Signs Temperature 97.7 F 03/14/24 10:56 Pulse Rate 106 H 03/14/24 10:56 Respiratory Rate 16 03/14/24 10:56 Pulse Oximetry 95 03/14/24 10:56 Oxygen Delivery Room Air 03/14/24 10:56 Temperature 98.0 F 03/14/24 15:01 Pulse Rate 80 03/14/24 15:01 Respiratory Rate 18 03/14/24 15:01 Blood Pressure 133/95 H 03/14/24 15:01 Pulse Oximetry 91 03/14/24 15:01 Oxygen Delivery Room Air 03/14/24 10:56 Transfer Transfered to: [facility] Transportation: ALS MDM - Extremity (Nontraumatic) Lab Data 03/14/24 11:26 03/14/24 11:26 Labs: Lab Results 03/14/24 Range/Units 11:26 WBC 6.1 (4.8-10.8) K/mm3 RBC 4.22 (4.20-5.40) M/mm3 Hgb 12.7 (12.0-15.0) g/dL Hct 38.0 (35.0-49.0) % MCV 90.0 (78.0-102.0) fL MCH 30.1 (27.0-31.0) pg MCHC 33.4 (32-36) g/dL RDW 13.2 (11.6-14.4) % Plt Count 261 (150-420) K/mm3 MPV 10.7 (9.2-11.8) fl Immature Gran % (Auto) 0.2 H (0.0-0.0) % Neut % (Auto) 66.0 (50.0-70.0) % Lymph % (Auto) 23.8 (18.0-42.0) % [place] % (Auto) 7.9 (2.0-11.0) % Eos % (Auto) 1.3 (1.0-6.0) % Baso % (Auto) 0.8 (0.0-1.0) % Lymph # (Auto) 1.45 (1.10-4.50) K/mm3 [place] # (Auto) 0.48 (0.10-0.90) K/mm3 Eos # (Auto) 0.08 (0.02-0.50) K/mm3 Baso # (Auto) 0.05 (0.00-0.10) K/mm3 Abs Immat Gran (auto) 0.01 H (0.00-0.00) K/mm3 Absolute Neuts (auto) 4.01 (1.70-7.20) K/mm3 Absolute Nucleated RBC 0.00 (0.00-0.00) K/mm3 Nucleated RBC % 0.0 (0-0.0) % Sodium 141 (136-145) mmol/L Potassium 3.8 (3.5-5.1) mmol/L Chloride 103 (98-108) mmol/L Carbon Dioxide 27 (21-32) mmol/L Anion Gap 11 (4-12) mmol/L BUN 20 H (7-18) mg/dL Creatinine 1.01 (0.55-1.02) mg/dL Estim Creat Clear Calc 52 ml/min Estimated GFR 55 L (59 - ) Glucose 84 (70-99) mg/dL Hemoglobin A1c 5.4 (<5.7) % Calculated Osmolality 293 (285-295) mOsm/kg Calcium 9.2 (8.5-10.1) mg/dL Total Bilirubin 0.5 (0.00-1.00) mg/dL AST 17 (15-37) U/L ALT 24 (14-59) U/L Alkaline Phosphatase 103 (46-116) U/L Total Protein 7.2 (6.4-8.2) g/dL Albumin 4.1 (3.4-5.0) g/dL Discharge Plan Discharge Clinical Impression: CVA (cerebral vascular accident) Patient Disposition: Acute Care Hospital Condition: Stable Instructions: Stroke (DC) Patient Language: Croatian Prescriptions: No Action cyclobenzaprine 10 mg tablet 10 mg PO TID PRN (Reason: muscle spasm) 5 Days Qty: 15 0RF hydrocodone-acetaminophen 5-325 mg tablet 1 tablet PO Q6H PRN (Reason: pain) Qty: 10 0RF hydrocodone-acetaminophen 5-325 mg tablet 1 tablet PO DAILY Qty: 1 0RF hydroxyzine HCl 25 mg tablet 25 mg PO TID fluoxetine 20 mg capsule 60 mg PO DAILY diphenhydramine HCl 50 mg tablet 50 mg PO Q6H PRN (Reason: itching) Qty: 20 0RF tramadol 50 mg tablet 50 mg PO Q6H PRN (Reason: pain) Qty: 15 0RF atorvastatin 10 mg tablet 10 mg PO DAILY omeprazole 20 mg capsule,delayed release(DR/EC) 20 mg PO DAILY Qty: 60 0RF Follow-up/Referrals: Lisset Napier MD [Primary Care Provider] - Time of Disposition: 13:06
[2024-03-14 11:48] LABS: Hemoglobin A1C 5.4 % (<5.7)
[2024-03-14 11:49] LABS: Alanine Aminotransferase 24 U/L (14-59); Albumin Level 4.1 g/dL (3.4-5.0); Alkaline Phosphatase 103 U/L (46-116); Anion Gap 11 mmol/L (4-12); Aspartate Amino Transferase 17 U/L (15-37); Bilirubin,Total 0.5 mg/dL (0.00-1.00); Blood Urea Nitrogen 20 mg/dL (7-18); Calcium 9.2 mg/dL (8.5-10.1); Carbon Dioxide 27 mmol/L (21-32); Chloride 103 mmol/L (98-108); Estimated CRCL calculation 52 ml/min; Estimated Glomerular Filt Rate 55; Glucose 84 mg/dL (70-99); Osmolality Calculated 293 mOsm/kg (285-295); Potassium 3.8 mmol/L (3.5-5.1); Sodium 141 mmol/L (136-145); Total Protein 7.2 g/dL (6.4-8.2)
--- NOTE | 2024-03-14 12:13 | PC.NURSE ---
PT UP TO RR WITHOUT DIFFICULTY. PT IS AWAITING RESULTS. NAD NOTED. VSS. PT IS AWAITING ERP DECISION AT THIS TIME. WILL CONTINUE TO MONITOR.
[2024-03-14] MEDS: ASPIRIN 81 MG CHEWABLE TABLET 324 MG PO (12:48)
[2024-03-14] MEDS: CLOPIDOGREL BISULFATE 75 MG TABLET PO (12:49)
--- NOTE | 2024-03-14 13:00 | PC.NURSE ---
PT HAS BEEN ACCEPTED TO [facility], AWAITING BED ASSIGNMENT AT THIS TIME. PT HAS FRIEND AT BEDSIDE, VSS PER MONITOR. PT DENIES ANY NEEDS OR COMPLAINTS, NO CHANGE IN PT STATUS. PT IS AWARE OF PLAN OF CARE. WILL CONTINUE TO MONITOR.
--- NOTE | 2024-03-14 14:43 | PC.NURSE ---
PT HAS EATEN SANDWICH TRAY, FAMILY AT BEDSIDE. PT DENIES ANY NEEDS OR COMPLAINTS. NO CHANGE IN PT STATUS. PT CONTINUES TO AWAIT ROOM ASSIGNMENT AT [facility] FOR TRANSFER. VSS PER MONITOR.
--- NOTE | 2024-03-14 14:50 | PC.NURSE ---
PT HAS BEEN ACCEPTED TO [address] AT [facility] ON [address] ROBERTS. ATTEMPTED TO CALL REPORT, RN TO RETURN CALL TO OBTAIN REPORT. WILL CONTINUE TO MONITOR.
== END 2024-03-14 15:45 | disposition short-term general hospital (02) ==
PROVIDERS: Emergency Provider Family Medicine; PCP Internal Medicine
DX: I63.9 Cerebral infarction, unspecified (principal); F17.210 Nicotine dependence, cigarettes, uncomplicated
CPT/HCPCS: 36415; 70450; 72125; 80053; 83036; 85025; 93005; 99285; A9270

== ENCOUNTER 2024-05-25 01:14 | Day surgery (SDC) | payer MEDICARE, SELFPAY ==
[2024-05-24 14:27] VITALS: BMI 23.1
[2024-05-25] VITALS (10 sets, daily range): BP systolic 114–179; BP diastolic 78–111; PULSE 61–82; RESP 12–17; TEMP 36.3; O2SAT 91–96; BMI 23.2
--- OUTSIDE RECORDS SUMMARY | 2024-05-25 01:17 | XMS_ITS | Clinical Summary ---
Author Organization [facility] Address [address] [place] [address] Phone Care Team Providers Care Continuous Improvement Specialist Name Role Phone Lisset Napier MD Primary Care Provider [phone] Allergies Active Allergy Reactions Criticality Noted Date Comments Bee Venom Unknown 04/05/2024 Poison Toña Extract Unknown 04/05/2024 Medications atorvastatin (LIPITOR) 80 MG Tablet Take 80 mg by mouth daily. Active EPINEPHrine (EPIPEN IJ) by Injection route. Active FLUoxetine (PROzac) 20 MG Capsule Take 20 mg by mouth daily. Active Denosumab (PROLIA) 60 MG/ML Solution Prefilled Syringe 60 mg by Subcutaneous route once. Active omeprazole (PriLOSEC) 20 MG CAPSULE DELAYED RELEASE Take 20 mg by mouth daily. Active hydrOXYzine (ATARAX) 25 MG Tablet Take 25 mg by mouth every 6 hours as needed. Active Fluticasone Furoate (Flonase Sensimist) 27.5 MCG/SPRAY Suspension 1 [place] by Nasal route daily. Active SUMAtriptan (IMITREX) 100 MG Tablet Take 100 mg by mouth daily as needed. Use as directed. May repeat dose in 2 hours if headache recurs. Active amLODIPine (NORVASC) 5 MG Tablet Take 5 mg by mouth daily. Active Encounters Date Type Department Care Team Description 04/05/2024 Telephone [facility] [address] [place] [address] Reno Rush MD from Last 3 Months Family History Medical History Relation Name Comments Stroke Brother Colon Cancer Father Heart Disease Father Relation Name Status Comments Brother Father Social History Tobacco Use Types Packs/Day Years Used Date Smoking Tobacco: Former Cigarettes Smokeless Tobacco: Never Tobacco Cessation:Counseling Given: Not Answered Alcohol Use Standard Drinks/Week Comments Not Currently 0 (1 standard drink = 0.6 oz pur e alcohol) Comments Unknown Sex and Gender Information Value Date Recorded Sex Assigned at Not on file Legal Sex Female 10:56 AM RESTORATIVE CARE TECHNICIAN Gender Identity Not on file Sexual Orientation Not on file Plan of Treatment Upcoming Encounters Date Type Department Care Team (Late st Contact Info) Description 07/18/2024 1:30 PM CDT Office Visit [facility] - Neurology [facility] [address] [place] [address] Eugenia Mayen, MARKETING INFORMATION ANALYST, CHANGE RELEASE MANAGER [address] [place] [address] Health Maintenance Due Date Last Done Comments Hepatitis C Virus (HCV) Screening 1961 Mammogram 1961 Pap Smear 1982 Cervical Cancer Screening (CCS) 1991 HPV/Cotest 1991 Colonoscopy 2006 Colorectal Cancer Screening 2006 Cologuard 2011 Immunochemical Fecal Occult Blood 2011 Pneumococcal Immunization (50+ years) (2 of 2 - PPSV23) 10/31/2015 10/30/2014 Respiratory Syncytial Virus (RSV) Immunization (Adult) (1 - 1-dose 75+ series) 01/28/2036 TdaP Immunization Completed 10/30/2014 Zoster Immunization Completed 11/21/2019, 0 Influenza Immunization Completed 4, 11/04/2022, 11/06/2021, Additional history exists SARS-COV-2 Immunization Completed 12/02/19 24, 06/15/2020, 05/25/2020 Hepatitis B Immunization Aged Out No longer eligible based on patient's age to complete this topic Meningococcal Immunization (ACWY) Aged Out No longer eligible based on patient's age to complete this topic Rotavirus Immunization Aged Out No lo nger eligible based on patient's age to complete this topic Insurance MEDICARE C [employer] on file Care Teams Continuous Improvement Specialist Relationship Specialty Start Date End Date Lisset Napier MD [address] [place] [address] PCP - General Internal Medicine 03/31/24
--- OUTSIDE RECORDS SUMMARY | 2024-05-25 01:17 | XMS_ITS | Clinical Summary ---
Author Organization [facility] Address [facility] [place] [address] Care Team Providers Care Flow Manager Name Role Phone Unavailable Primary Care Provider Unavailabl e Social History Tobacco Use Types Packs/Day Years Used Date Smoking Tobacco: Never Assessed Comments Unknown Sex and Gender Information Value Date Recorded Sex Assigned at Not on file Legal Sex Female 1:31 AM CDT Gender Identity Not on file Sexual Orientation Not on file Plan of Treatment Health Maintenance Due Date Last Done Comments Cervical Cancer Screening Pa p Smear (Age 30 to 64) Every 3 Years 1961 Colorectal Cancer Screening Colonoscopy (10 Years) 1961 Annual Physical 01/28/1964 Hepatitis C 1979 DTaP, Tdap and Td Vaccines ( 1 - Tdap) 01/28/1980 Cervical Cancer Screening Pa p with HPV Testing (Age 30 to 64) Every 5 Years 1991 Cervical Cancer Screening with HPV 1991 Mammogram Screening 2001 Zoster Vaccines (1 of 2) 2011 COVID-19 Vaccine (2023-2 5 season) 2023 Influenza Adult (#1) 2023 RSV Immunization or 60+ Years (1 - 1-dose 75+ series) 01/28/2036 Meningococcal B Vaccine Aged Out No l onger eligible based on patient's age to complete this topic Meningococcal Vaccine Aged Out No shannon becka eligible based on patient's age to complete this topic Pneumococcal Vaccine: Pediat rics (0 to 5 Years) and At-Risk Patients (6 to 64 Years) Aged Out No longer eligible b ased on patient's age to complete this topic RSV Immunizations Under 20 Months Aged Out No longer eligible based on patient's age to complete this topic
--- OUTSIDE RECORDS SUMMARY | 2024-05-25 01:17 | XMS_ITS | Referral Summary ---
Author Organization [place] [address] [address] [address] Care Team Providers Care Materials Inspector Name Role Phone Lisset Napier MD Primary Care Provider Encounters Date Type Department Care Team Description 05/04/2024 Telephone [facility] Cardiology [address] [place] [address] [place] [phone] Maryjane Hernandez MD 05/04/2024 Results Follow-Up [facility] Cardiology [address] [place] [address] [place] [phone] Maryjane Hernandez MD 05/01/2024 Orders Only [facility] Cardiology [address] [place] [phone] John Henderson MD 04/26/2024 Orders Only [facility] Cardiology [address] [place] [address] [place] [phone] John Henderson MD 04/26/2024 2:30 PM PETAL CUTTER Office Visit [facility] Cardiology at [address] [place] [address] Maryjane Hernandez MD Mixed hyperlipidemia; Essential (primary) hypertension; Cerebral infarction, unspecified mechanism (HCC); Atrial septal aneurysm; PFO (patent foramen ovale) from Last 3 Months Allergies Active Allergy Reactions Criticality Noted Date Comments Poison Toña Extract Unknown 04/05/2024 Venom-Honey Bee Unknown 04/05/2024 Medications FLUoxetine (PROzac) 20 mg capsule Take by mouth daily Active omeprazole (PriLOSEC) 20 mg capsule Take 1 capsule (20 mg total) by mouth daily Active atorvastatin (LIPITOR) 80 mg tablet Take 1 tablet (80 mg total) by mouth daily Active hydrOXYzine (ATARAX) 25 mg tablet Take 1 tablet (25 mg total) by mouth every 6 (six) hours as needed Active amLODIPine (NORVASC) 5 mg tablet Take 1 tablet (5 mg total) by mouth daily Active aspirin 81 mg enteric coated tablet Take 1 tablet (81 mg total) by mouth daily Active cyanocobalamin (Vitamin B-12) 1,000 mcg tabletIndicatio ns:Prevention of Vitamin B12 Deficiency Take 1 tablet (1,000 mcg total) by mouth daily Active Active Problems Problem Noted Date Diagnosed Date Mixed hyperlipidemia 04/26/2024 Cerebral infarction 04/26/2024 PFO (patent foramen ovale) 04/26/2024 Social History Tobacco Use Types Packs/Day Years Used Date Smoking Tobacco: Former Cigarettes Q uit: 05/31/2023 Passive Smoke Exposure: Past Smokeless Tobacco: Never Tobacco Cessation:Counseling Given: Not Answered Comments Unknown Sex and Gender Information Value Date Recorded Sex Assigned at Not on file Legal Sex Female 5:06 PM PETAL CUTTER Gender Identity Not on file Sexual Orientation Not on file Last Filed Vital Signs Vital Sign Reading Time Taken Comments Blood Pressure 90/64 04/26/2024 2:37 PM PETAL CUTTER Pulse 80 04/26/2024 2:37 PM PETAL CUTTER Temperature - - Respiratory Rate - - Oxygen Saturation 94% 04/26/2024 2:37 PM PETAL CUTTER Inhaled Oxygen Concentration - - Weight 69.9 kg (154 lb) 04/26/2024 2:37 PM PETAL CUTTER Height 174 cm (5' 8.5 ) 04/26/2024 2:37 PM PETAL CUTTER Body Mass Index 23.08 04/26/2024 2:37 PM PETAL CUTTER Plan of Treatment Not on file Procedures Procedure Name Priority Date/Time Associated Diagnosis Comments ELECTROCARDIOGRAM REPORT Routine 025 3:27 PM PETAL CUTTER Essential (primary) hypertension Cerebral infarction, unspecified mechanism (HCC) Atrial septal aneurysm PFO (patent foramen ovale) EVENT MONITOR Routine 03/16/2024 1:41 PM PETAL CUTTER TRANSTHORACIC ECHO (TTE) COMPLETE W DOPPLER/CF Routine 03/14/2024 4:00 PM PETAL CUTTER from Last 3 Months Results * Electrocardiogram Report (04/26/2024 3:27 PM PETAL CUTTER) Ripa Kennedy Hernandez MD ECG ORDERABLES Final R esult * Event Monitor (03/16/2024 1:41 PM PETAL CUTTER) Anatomical Region Laterality Modality Other Historical Provider CV CARDIAC SERVICES PROCE DURES Edited Result - Final * Transthoracic Echo (TTE) Complete W Doppler/CF (03/14/2024 4:00 PM PETAL CUTTER) Anatomical Region Laterality Modality Ultrasound Historical Provider CV ECHO PROCEDURES Edited Result - Final from Last 3 Months Insurance [facility] MEDICARE [facility] Address: [address] [address] Care Teams Materials Inspector Relationship Specialty Start Date End Date Lisset Napier MD [address] [place] [address] PCP - General Internal Medicine 04/11/24
--- OUTSIDE RECORDS SUMMARY | 2024-05-25 01:17 | XMS_ITS | Clinical Summary ---
Author Organization [place] [address] [address] [place] [address] [address] [place] [address] Care Team Providers Care Weight Recorder Name Role Phone Lisset Napier MD Primary Care Provider [phone] Allergies Active Allergy Reactions Criticality Noted Date [...] infarction 04/26/2024 PFO (patent foramen ovale) 04/26/2024 Encounters Date Type Department Care Team Description 05/04/2024 Telephone [facility] Cardiology [address] [facility] [address] [place] [address] Maryjane Hernandez MD 05/04/2024 Results Follow-Up [facility] Cardiology [address] [place] [address] [address] [place] [address] Maryjane Hernandez MD 05/01/2024 Orders Only [facility] Cardiology [address] [place] [address] John Henderson MD 04/26/2024 2:30 PM DEPUTY SHERIFF K9 HANDLER Office Visit [facility] Cardiology at [address] [place] [address] Maryjane Hernandez MD Mixed hyperlipidemia; Essential (primary) hypertension; Cerebral infarction, unspecified mechanism (HCC); Atrial septal aneurysm; PFO (patent foramen ovale) 04/26/2024 Orders Only [facility] Cardiology [address] [place] [address] John Henderson MD from Last 3 Months Surgical History Surgery Date Site/Laterality Comments HYSTERECTOMY CHOLECYSTECTOMY Medical History Medical History Date Comments PFO (patent foramen ovale) Stroke (HCC) Anxiety and depression Family History Medical History Relation Name Comments Cancer Father COPD Mother Relation Name Status Comments Brother Alive Father Mother Alive Sister Alive Social History Tobacco Use Types Packs/Day Years Used Date Smoking Tobacco: Former Cigarettes Q uit: 05/31/2023 Passive Smoke Exposure: Past Smokeless Tobacco: Never Tobacco Cessation:Counseling Given: Not Answered Comments Unknown Sex and Gender Information Value Date Recorded Sex Assigned at Not on file Legal Sex Female 5:06 PM DEPUTY SHERIFF K9 HANDLER Gender Identity Not on file Sexual Orientation Not on file Obstetrics History Last Filed Vital Signs Vital Sign Reading Time Taken Comments Blood Pressure 90/64 04/26/2024 2:37 PM DEPUTY SHERIFF K9 HANDLER Pulse 80 04/26/2024 2:37 PM DEPUTY SHERIFF K9 HANDLER Temperature - - Respiratory Rate - - Oxygen Saturation 94% 04/26/2024 2:37 PM DEPUTY SHERIFF K9 HANDLER Inhaled Oxygen Concentration - - Weight 69.9 kg (154 lb) 04/26/2024 2:37 PM DEPUTY SHERIFF K9 HANDLER Height 174 cm (5' 8.5 ) 04/26/2024 2:37 PM DEPUTY SHERIFF K9 HANDLER Body Mass Index 23.08 04/26/2024 2:37 PM DEPUTY SHERIFF K9 HANDLER Plan of Treatment Health Maintenance Due Date Last Done Comments Breast Cancer Screening-Mammogram 1961 Colon Cancer Screening-Colonoscopy 1961 Depression Screening 1961 Hepatitis C Screening 1961 DTaP/Tdap/Td Vaccine (1 - Tdap) 01/28/1972 Hepatitis B Screening 1979 Regular Well Visit/Exam 18-64 1979 Zoster Vaccine (1 of 2) 2011 Influenza Vaccine Completed 11/02/2023 Pneumococcal vaccine <65 Aged Out No longer eligible based on patient's age to complete this topic Procedures Procedure Name Priority Date/Time Associated Diagnosis Comments ELECTROCARDIOGRAM REPORT Routine 025 3:27 PM DEPUTY SHERIFF K9 HANDLER Essential (primary) hypertension Cerebral infarction, unspecified mechanism (HCC) Atrial septal aneurysm PFO (patent foramen ovale) EVENT MONITOR Routine 03/16/2024 1:41 PM DEPUTY SHERIFF K9 HANDLER TRANSTHORACIC ECHO (TTE) COMPLETE W DOPPLER/CF Routine 03/14/2024 4:00 PM DEPUTY SHERIFF K9 HANDLER from Last 3 Months Results * Electrocardiogram Report (04/26/2024 3:27 PM DEPUTY SHERIFF K9 HANDLER) [facility] Kennedy Hernandez MD ECG ORDERABLES Final R esult * Event Monitor (03/16/2024 1:41 PM DEPUTY SHERIFF K9 HANDLER) Anatomical Region Laterality Modality Other Historical Provider CV CARDIAC SERVICES LIAT FREGOSO Edited Result - Final * Transthoracic Echo (TTE) Complete W Doppler/CF (03/14/2024 4:00 PM DEPUTY SHERIFF K9 HANDLER) Anatomical Region Laterality Modality Ultrasound Historical Provider CV ECHO PROCEDURES Edited Result - Final from Last 3 Months Insurance [facility] MEDICARE [facility] Address: [facility] [address] [place] [address] Care Teams Weight Recorder Relationship Specialty Start Date End Date Lisset Napier MD [address] [place] [address] PCP - General Internal Medicine 04/11/24
--- OUTSIDE RECORDS SUMMARY | 2024-05-25 01:17 | XMS_ITS | Encounter Summary ---
Author Organization [facility] Healthcare Address [address] [place] [address] Care Team Providers Care Dinkey Operator Slag Name Role Phone Lisset Napier MD Primary Care Provider [phone] Encounter Details Date Type Department Care Team (Late st Contact Info) Description 05/04/2024 Results Follow-Up [facility] Cardiology [address] [place] [address] Maryjane Hernandez MD [facility] [address] Social History Tobacco Use Types Packs/Day Years Used Date Smoking Tobacco: Former Cigarettes Q uit: 05/31/2023 Passive Smoke Exposure: Past Smokeless Tobacco: Never Comments Unknown Sex and Gender Information Value Date Recorded Sex Assigned at Not on file Legal Sex Female 5:06 PM SALON PROFESSIONAL Gender Identity Not on file Sexual Orientation Not on file documented as of this encounter Plan of Treatment Not on file documented as of this encounter Visit Diagnoses Not on filedocumented in this encounter Care Teams Dinkey Operator Slag Relationship Specialty Start Date End Date Lisset Napier MD [address] [place] [address] PCP - General Internal Medicine 04/11/24 documented as of this encounter
--- OUTSIDE RECORDS SUMMARY | 2024-05-25 01:17 | XMS_ITS | Continuity of Care Document ---
Author Organization [facility] Address [address] [place] [address] [place] [address] Phone Care Team Providers Care Gallery Assistant Name Role Phone Alvaro Riojas MD Unavailable Unavailable Procedures Procedure Date Office/outpatient visit,est, mod 2012 Supplemental Report Supplemental Report Office/outpatient visit,est, [facility] 2012 Supplemental Report Office/outpatient visit,est, mod 2012 MRI Upper extr joint, w/o contrast Office consultation, moderate 3 Advance Directives Directive Yes / No Effective Date File Name No Information Encounters Encounter Description Practice Location Reason(s) For Visit Diagnoses Date Provider Providers Copied on Encounter Office/outpat ient visit,est, [facility], [address], [id number], tel:[phone] [facility] LEAFER SPRAIN ROTATOR CUFF Beulah John. [address] [facility], [address], [place], [place], [id number] , [place]. tel:[phone] Office/outpat ient visit,est, [facility], [address], [id number], [place] tel:[phone] [facility] LEAFER SPRAIN SHOULDER/ARM NOS Beulah John. [address] [facility], [address], [place], [place], [id number] , [place]. tel: [phone] Office/outpat ient visit,est, mod [facility], [address] [facility] [address], [place], [place], [id number], tel:[phone] [facility] ROTATOR CUFF SYND NOS Beulah John. [address] [facility], [address], [place], [place], [id number] , [place]. tel:[phone] [facility], [address] [facility] [address], [place], [place], [id number], tel:[phone] [facility] PAIN IN LIMBSPRAIN ROTATOR CUFF [facility]. [address] [place] [address], [address], [place], [place], [id number] , [place]. tel:[phone] Referring Provider: Alvaro Campuzano, [address] [facility] [address], [place], [address] . tel:[phone] Office consultation, moderate [facility], [address] [facility] [address], [place], [place], [id number], tel:[phone] [facility] SPRAIN SHOULDER/ARM NOS Beulah John. [address] [place] [address], [address], [place], [place], [id number] , [place]. [phone] Family History Family Member Type Diagnosis Age At Onset No Information Payers Payer name Insurance type Covered green party ID Authoriza tiswapnil(s) [facility] [id number] Social History Type Description Quantity Date Captured [...]
--- OUTSIDE RECORDS SUMMARY | 2024-05-25 08:34 | XMS_ITS | Clinical Summary ---
Author Organization [facility] Address [facility] [place] [address] Care Team Providers Care Procurement Manager Name Role Phone Unavailable Primary Care [...]
--- OUTSIDE RECORDS SUMMARY | 2024-05-25 08:34 | XMS_ITS | Clinical Summary ---
Author Organization [place] [address] [address] [place] [address] [address] [place] [address] Care Team Providers Care Farmworker Egg Producing Farm Name Role Phone Lisset Napier MD Primary Care Provider Allergies Active Allergy Reactions Criticality Noted Date [...] Type Department Care Team Description 05/04/2024 Telephone [facility] Cardiology [address] [facility] [address] [place] [address] Maryjane Hernandez MD 05/04/2024 Results Follow-Up [facility] Cardiology [address] [place] [address] [address] [place] [address] Maryjane Hernandez MD 05/01/2024 Orders Only [facility] Cardiology [address] [place] [address] John Henderson MD 04/26/2024 2:30 PM CLIENT RELATIONS SPECIALIST Office Visit [facility] Cardiology at [address] [place] [address] Maryjane Hernandez MD Mixed hyperlipidemia; Essential (primary) hypertension; Cerebral infarction, unspecified mechanism (HCC); Atrial septal aneurysm; PFO (patent foramen ovale) 04/26/2024 Orders Only [facility] Cardiology [address] [place] [address] John Henderson MD from Last [...] on file Legal Sex Female 5:06 PM CLIENT RELATIONS SPECIALIST Gender Identity Not on file Sexual Orientation Not on file Obstetrics History Last Filed Vital Signs Vital Sign Reading Time Taken Comments Blood Pressure 90/64 04/26/2024 2:37 PM CLIENT RELATIONS SPECIALIST Pulse 80 04/26/2024 2:37 PM CLIENT RELATIONS SPECIALIST Temperature - - Respiratory Rate - - Oxygen Saturation 94% 04/26/2024 2:37 PM CLIENT RELATIONS SPECIALIST Inhaled Oxygen Concentration - - Weight 69.9 kg (154 lb) 04/26/2024 2:37 PM CLIENT RELATIONS SPECIALIST Height 174 cm (5' 8.5 ) 04/26/2024 2:37 PM CLIENT RELATIONS SPECIALIST Body Mass Index 23.08 04/26/2024 2:37 PM CLIENT RELATIONS SPECIALIST Plan of Treatment Health Maintenance Due Date [...] Comments ELECTROCARDIOGRAM REPORT Routine 025 3:27 PM CLIENT RELATIONS SPECIALIST Essential (primary) hypertension Cerebral infarction, unspecified mechanism (HCC) Atrial septal aneurysm PFO (patent foramen ovale) EVENT MONITOR Routine 03/16/2024 1:41 PM CLIENT RELATIONS SPECIALIST TRANSTHORACIC ECHO (TTE) COMPLETE W DOPPLER/CF Routine 03/14/2024 4:00 PM CLIENT RELATIONS SPECIALIST from Last 3 Months Results * Electrocardiogram Report (04/26/2024 3:27 PM CLIENT RELATIONS SPECIALIST) [facility] Kennedy Hernandez MD ECG ORDERABLES Final R esult * Event Monitor (03/16/2024 1:41 PM CLIENT RELATIONS SPECIALIST) Anatomical Region Laterality Modality Other Historical Provider CV CARDIAC SERVICES LIAT FREGOSO Edited Result - Final * Transthoracic Echo (TTE) Complete W Doppler/CF (03/14/2024 4:00 PM CLIENT RELATIONS SPECIALIST) Anatomical Region Laterality Modality Ultrasound Historical Provider CV ECHO PROCEDURES Edited Result - Final from Last 3 Months Insurance [facility] MEDICARE ADVANTAGE [facility] MEDICARE Address: [facility] [address] [place] [address] Care Teams Farmworker Egg Producing Farm Relationship Specialty Start Date End Date Lisset Napier MD [address] [place] [address] PCP - General Internal Medicine 04/11/24
--- OUTSIDE RECORDS SUMMARY | 2024-05-25 08:34 | XMS_ITS | Referral Summary ---
Author Organization [place] [address] Address [address] [address] Care Team Providers Care Framing Mill Operator Helper Name Role Phone Lisset Napier MD Primary Care Provider [phone] Encounters Date Type Department Care Team Description 05/04/2024 Telephone [facility] Cardiology [address] [place] [address] [place] [phone] Maryjane Hernandez MD 05/04/2024 Results Follow-Up [facility] [address] [place] [address] [place] [phone] Maryjane Hernandez MD 05/01/2024 Orders Only [facility] Cardiology [address] [place] [address] John Henderson MD 04/26/2024 Orders Only [facility] Cardiology [address] [place] [address] [place] [address] John Henderson MD 04/26/2024 2:30 PM UNDERLINER Office Visit [facility] Cardiology at [address] [place] [address] Maryjane Hernandez MD Mixed hyperlipidemia; [...] on file Legal Sex Female 5:06 PM UNDERLINER Gender Identity Not on file Sexual Orientation Not on file Last Filed Vital Signs Vital Sign Reading Time Taken Comments Blood Pressure 90/64 04/26/2024 2:37 PM UNDERLINER Pulse 80 04/26/2024 2:37 PM UNDERLINER Temperature - - Respiratory Rate - - Oxygen Saturation 94% 04/26/2024 2:37 PM UNDERLINER Inhaled Oxygen Concentration - - Weight 69.9 kg (154 lb) 04/26/2024 2:37 PM UNDERLINER Height 174 cm (5' 8.5 ) 04/26/2024 2:37 PM UNDERLINER Body Mass Index 23.08 04/26/2024 2:37 PM UNDERLINER Plan of Treatment Not on file Procedures Procedure Name Priority Date/Time Associated Diagnosis Comments ELECTROCARDIOGRAM REPORT Routine 025 3:27 PM UNDERLINER Essential (primary) hypertension Cerebral infarction, unspecified mechanism (HCC) Atrial septal aneurysm PFO (patent foramen ovale) EVENT MONITOR Routine 03/16/2024 1:41 PM UNDERLINER TRANSTHORACIC ECHO (TTE) COMPLETE W DOPPLER/CF Routine 03/14/2024 4:00 PM UNDERLINER from Last 3 Months Results * Electrocardiogram Report (04/26/2024 3:27 PM UNDERLINER) [facility] Kennedy Hernandez MD ECG ORDERABLES Final R esult * Event Monitor (03/16/2024 1:41 PM UNDERLINER) Anatomical Region Laterality Modality Other Historical Provider CV CARDIAC SERVICES PROCE DURES Edited Result - Final * Transthoracic Echo (TTE) Complete W Doppler/CF (03/14/2024 4:00 PM UNDERLINER) Anatomical Region Laterality Modality Ultrasound Historical Provider CV ECHO PROCEDURES Edited Result - Final from Last 3 Months Insurance [facility] MEDICARE ADVANTAGE [facility] MEDIC[facility] Address: [address] [address] Care Teams Framing Mill Operator Helper Relationship Specialty Start Date End Date Lisset Napier MD [address] [place] [address] PCP - General Internal Medicine 04/11/24
--- OUTSIDE RECORDS SUMMARY | 2024-05-25 08:34 | XMS_ITS | Continuity of Care Document ---
Author Organization [facility] Address [address] [place] [address] Phone Care Team Providers Care Head Custodian Name Role Phone Alvaro Riojas MD Unavailable Unavailable Procedures Procedure Date Office/outpatient visit,est, mod 2012 Supplemental Report Supplemental Report Office/outpatient visit,est, [facility] 2012 Supplemental Report Office/outpatient visit,est, mod 2012 MRI Upper extr joint, w/o contrast Office consultation, moderate 3 Advance Directives Directive Yes / No Effective Date File Name No Information Encounters Encounter Description Practice Location Reason(s) For Visit Diagnoses Date Provider Providers Copied on Encounter Office/outpat ient visit,est, [facility], [address], [id number], tel:[phone] Orth[facility] [employer] SPRAIN ROTATOR CUFF Beulah John. [address] [facility], [address], [place], [place], [id number] , [place]. [phone] Office/outpat ient visit,est, [facility], [address], [id number], [place] tel:[phone] [facility] [employer] SPRAIN SHOULDER/ARM NOS Beulah John. [address] [facility], [address], [place], [place], [id number] , [place]. tel: [phone] Office/outpat ient visit,est, mod [facility], [address] [facility] [address], [place], [place], [id number], tel:[phone] Orthopedic [facility] ROTATOR CUFF SYND NOS Beulah John. [address] [facility], [address], [place], [place], [id number] , [place]. tel:[phone] [facility], [address] [facility] [address], [place], [place], [id number], tel:[phone] [facility] PAIN IN LIMBSPRAIN ROTATOR CUFF [facility]. [address] [place] [address], [address], [place], [place], [address] , [place]. tel:[phone] Referring Provider: Alvaro Campuzano, [address] [facility] [address], [place], [address] . tel:[phone] Office consultation, moderate [facility], [address] [facility] [address], [place], [place], [id number], tel:[phone] [facility] SPRAIN SHOULDER/ARM NOS Beulah John. [address] [place] [address], [address], [place], [place], [id number] , [place]. [phone] Family History Family Member Type Diagnosis Age At Onset No Information Payers Payer name Insurance type Covered republican ID Authoriza tiswapnil(s) [facility] [id number] Social History Type Description Quantity Date Captured [...]
--- OUTSIDE RECORDS SUMMARY | 2024-05-25 08:34 | XMS_ITS | Encounter Summary ---
Author Organization [facility] Healthcare Address [address] [place] [address] Care Team Providers Care Stitcher Set Up Operator Automatic Name Role Phone Lisset Napier MD Primary Care Provider Encounter Details Date Type Department Care Team (Late st Contact Info) Description 05/04/2024 Results Follow-Up [facility] Cardiology [address] [place] [address] Maryjane Hernandez MD [facility] [address] Social History Tobacco Use Types Packs/Day Years Used Date Smoking Tobacco: Former Cigarettes Q uit: 05/31/2023 Passive Smoke Exposure: Past Smokeless Tobacco: Never Comments Unknown Sex and Gender Information Value Date Recorded Sex Assigned at Not on file Legal Sex Female 5:06 PM METER ENGINEER Gender Identity Not on file Sexual Orientation Not on file documented as of this encounter Plan of Treatment Not on file documented as of this encounter Visit Diagnoses Not on filedocumented in this encounter Care Teams Stitcher Set Up Operator Automatic Relationship Specialty Start Date End Date Lisset Napier MD [address] [place] [address] PCP - General Internal Medicine 04/11/24 documented as of this encounter
--- OUTSIDE RECORDS SUMMARY | 2024-05-25 08:34 | XMS_ITS | Clinical Summary ---
Author Organization [facility] Address [address] [place] [address] Phone Care Team Providers Care Manager Story Name Role Phone Lisset Napier MD Primary Care Provider [phone] Allergies Active Allergy Reactions Criticality Noted Date [...] Furoate (Flonase Sensimist) 27.5 MCG/SPRAY Suspension 1 [place] by Nasal route daily. Active SUMAtriptan (IMITREX) 100 MG Tablet Take 100 mg by mouth daily as needed. Use as directed. May repeat dose in 2 hours if headache recurs. Active amLODIPine (NORVASC) 5 MG Tablet Take 5 mg by mouth daily. Active Encounters Date Type Department Care Team Description 04/05/2024 Telephone [facility] [address] [place] [address] Reno Rush MD from Last [...] on file Legal Sex Female 10:56 AM FINANCIAL SERVICES CONSULTANT Gender Identity Not on file Sexual Orientation Not on file Plan of Treatment Upcoming Encounters Date Type Department Care Team (Late st Contact Info) Description 07/18/2024 1:30 PM CDT Office Visit [facility] - Neurology [facility] [address] [place] [address] Eugenia Mayen, BLOCK STACKER, INFANTRY SENIOR SERGEANT [address] [place] [address] Health Maintenance Due Date Last Done Comments [...] MEDICARE C [employer] on file Care Teams Manager Story Relationship Specialty Start Date End Date Lisset Napier MD [address] [place] [address] PCP - General Internal Medicine 03/31/24
--- NOTE | 2024-05-25 10:05 | WPDHPUPDATE1 ---
History and Physical Update Update Date/Time: 05/25/24 10:05 History and Physical has been reviewed, including an updated exam of the patient. There are NO changes in the patient's condition. Risks, benefits, and alternatives have been discussed and questions answered. Patient agrees to proceed with procedure.
--- NOTE | 2024-05-25 10:05 | WPDMODSED ---
Moderate Sedation Note-Pt Data Patient Data Diagnosis: PFO Present Complaint: PFO Procedure to be performed/Plan: Transesophageal echocardiogram Allergies Allergy/AdvReac Type Severity Reaction Status Date / Time No Known Allergies Allergy Verified 05/25/24 09:04 Home Medications ?Medication ?Instructions ?Recorded ?Confirmed ?Type omeprazole 20 mg capsule,delayed 20 mg PO DAILY #60 caps 12/11/19 05/24/24 Rx release fluoxetine 20 mg capsule 60 mg PO DAILY 10/26/22 05/24/24 History hydroxyzine HCl 25 mg tablet 25 mg PO TID 10/26/22 05/24/24 History amlodipine 5 mg tablet 5 mg PO DAILY 05/24/24 05/24/24 History aspirin 81 mg tablet,delayed 81 mg PO DAILY 05/24/24 05/24/24 History release (Adult Aspirin Regimen) atorvastatin 80 mg tablet 80 mg PO QPM 05/24/24 05/24/24 History cyanocobalamin (vitamin B-12) 1,000 mcg PO DAILY 05/24/24 05/24/24 History 1,000 mcg capsule Current Medications: Active Medications Sodium Chloride (Normal Saline Iv) 1,000 mls @ 30 mls/hr IV CONT .Q24H COLETTE Sedation/Anesthesia: No previous sedation/anesthesia problems (including family history). COUNTS INCLUDE 234 BEDS AT THE [facility] Past Medical History Medical History Bee sting GERD (gastroesophageal reflux disease) Family history of colon cancer in father Adenomatous colon polyp GERD (gastroesophageal reflux disease) Depression Stroke L sided at age 26 years, now with residual R sided weakness Surgical History Surgical History History of cholecystectomy Family History Family History Sibling Cerebrovascular accident Father Heart disease s/p CABG Hypertension Rectal adenocarcinoma Alzheimer disease Parkinson disease Social History Social History Smoking packs per day: 1 Smoking cigarettes per day: 20.0 Years smoked: 40 Smoking pack-years: 40.00 Smoking status: Current every day smoker Tobacco type: cigarettes Second hand tobacco smoke exposure: No Alcohol intake: never Substance use: current Living arrangements: with family Gender identity (if verbalized by the patient): Female Spiritual care concerns: No Agree to blood products: Yes Mod Sed Physical Exam Physical Exam Pre Procedural Exam: Normal: Appearance, Lungs, Heart Rate, Heart Rhythm, Extremities and Skin Hours since solid foods: 12 Hours since liquid intake: 8 Mallampati Classification: class III Internal Medicine - PN: Obj Da Vital Signs Vital Signs: Vital Signs - 24 hr 05/25/24 09:10 05/25/24 09:47 05/25/24 09:50 Temperature 36.3 C L Pulse Rate 64 70 65 Respiratory Rate 16 12 14 Blood Pressure 114/82 140/91 H 179/111 H Pulse Oximetry 93 96 91 Oxygen Delivery Room Air Nasal Cannula Nasal Cannula Oxygen Flow Rate 2 4 05/25/24 09:55 Temperature Pulse Rate 82 Respiratory Rate 17 Blood Pressure 154/102 H Pulse Oximetry 95 Oxygen Delivery Nasal Cannula Oxygen Flow Rate 4 Meds/Results Medications: Active Medications Generic Name Dose Route Start Last Admin Trade Name Freq PRN Reason Stop Dose Admin Sodium Chloride 1,000 mls @ 30 mls/hr 05/25/24 08:30 Normal Saline Iv IV CONT .Q24H [facility] ASA Classification/Sedation ASA Classification/Sedation ASA Class: II Emergent: No Risks: Risks, benefits and alternatives explained and patient/family accepted plan for sedation. Patient re-evaluated immediately prior to sedation.
--- NOTE | 2024-05-25 10:05 | WPDTEECHO ---
ANA TransEsophageal Echocardiogram Date of procedure: 05/25/24 Procedure Type: Date Of Procedure: 05/25/2024 Brief History Of Present Illness: Patient is a 64 year old female with CVA who is referred for transesophageal echocardiogram for further evaluation of PFO noted on transthoracic echocardiogram. Indication: Embolic CVA, PFO on TTE Procedure In Detail: After verbal and written informed consent was obtained, the patient risks, benefits, and alternatives explained in detail. The patient agreed to proceed with the plan of care as outlined above.?The patient was evaluated at bedside [facility].?See pre-sedation note for further details. The patient was then placed in the appropriate 30 to 45 degree angle supine position at a slight left lateral decubitus position.?Patient was monitored throughout the study with telemetry, oxygen saturation, end-tidal CO2 monitoring, blood pressure, heart rate, and respirations.?The posterior hypopharynx was then locally anesthetized using repeated administration of Hurricaine spray as well as gargled viscous lidocaine. After local anesthetic of the posterior hypopharynx was achieved and the oral bite block placed, moderate sedation was administered.?After confirmation of adequate moderate sedation, the transesophageal echocardiogram probe was advanced through the oral bite block into the posterior hypopharynx and into the esophagus easily and without complication.?Multiple, multiplanar echocardiographic images were obtained in multiple standard re-projections.?Color-flow Doppler and bubble study were utilized in conjunction with this study.?At the conclusion of the study, the transesophageal echocardiogram probe was removed easily and without complication. The patient tolerated the procedure well without difficulty.?Patient was in sinus rhythm throughout the study. Moderate Sedation / Anesthesia Administration: Procedure / sedation start time: 09:46 Procedure / sedation end time: 09:58 Total procedure time: 12 minutes Total of IV Versed 3mg and Fentanyl 75mg was administered by RN. FINDINGS: LEFT VENTRICLE: Size and systolic function were within normal limits. RIGHT VENTRICLE:?Size and systolic function within normal limits. LEFT ATRIUM: Normal size. RIGHT ATRIUM: Normal size. INTERATRIAL SEPTUM: Interatrial septum is aneurysmal. Bubble study is positive with a right to left shunt, consistent with PFO. Positive bubble study at both rest and with Valsalva. MITRAL VALVE: Mild regurgitation. AORTIC VALVE: The aortic valve was an anatomically normal 3 leaflet structure with normal leaflet excursion and no regurgitation identified. TRICUSPID VALVE: Grossly normal. PULMONIC VALVE: Pulmonic valve was not well visualized. LEFT ATRIAL APPENDAGE: Anatomically normal structure with prominent pectinate muscles without thrombus or vegetation identified. PERICARDIUM: The pericardium was anatomically normal without significant pericardial effusion. AORTA: Mild atherosclerotic disease. CONCLUSION: Interatrial septum is aneurysmal. Bubble study is positive with a right to left shunt, consistent with PFO. Positive bubble study at both rest and with Valsalva. Complications: None
== END 2024-05-25 11:15 | disposition home or self-care (01) ==
PROVIDERS: PCP Internal Medicine; Visit Provider Internal Medicine
PROC: (CPT 93312; principal; 2024-05-25 09:30)
DX: Q21.12 Patent foramen ovale (principal); K21.9 Gastro-esophageal reflux disease without esophagitis; F32.A Depression, unspecified; F17.210 Nicotine dependence, cigarettes, uncomplicated; Z79.82 Long term (current) use of aspirin; Z98.890 Other specified postprocedural states; Z90.49 Acquired absence of other specified parts of digestive tract; Z86.0100 Personal history of colon polyps, unspecified; Z86.73 Personal history of transient ischemic attack (TIA), and cerebral infarction without residual deficits; Z80.0 Family history of malignant neoplasm of digestive organs; Z82.49 Family history of ischemic heart disease and other diseases of the circulatory system
CPT/HCPCS: 93312; 93320; 93325; J2250; J3010; J7030

== ENCOUNTER 2024-06-22 12:25 | Outpatient (CLI) | payer MEDICARE, SELFPAY ==
--- NOTE | ~2024-06-22 | CT_ITS ---
CT Scan of the Chest without Contrast: Clinical Indication: Lung cancer screening, nicotine dependence Technique: Contiguous sections were acquired throughout the chest without intravenous contrast. Dose reduction technique was used on this scan by utilizing automated exposure control and iterative recon struction technique. The dose-length product (DLP) was 68.68 mGy-cm. COMPARISON: 08/24/2022 Findings: There is no evidence of any significant mediastinal, hilar or axillary lymphadenopathy. The mediastin al soft tissues appear normal. There is no evidence of pleural or pericardial effusion. Focal grouped irregular small nodules are present at the anteromedial right middle lobe, most compati ble with focal scars infectious process (axial image 74). Images through the upper abdomen reveal no abnormalities. Impression: Lung RADS 2: Benign appearance. 12 month follow-up screening CT advised. Reviewed, dictated and finalized at location . Impression: Lung RADS 2: Benign appearance. 12 month follow-up screening CT advised.
--- OUTSIDE RECORDS SUMMARY | 2024-06-22 13:29 | XMS_ITS | Clinical Summary ---
Author Organization [facility] [address] Address [address] [place] [address] Care Team Providers Care [facility] Agent Name Role Phone Lisset Napier MD Primary Care Provider Allergies Active Allergy Reactions Criticality Noted Date Comments Poison Toña Extract Unknown 04/05/2024 Venom-Honey Bee Unknown,Anaphylaxis High 03/14/2024 Medications FLUoxetine (PROzac) 20 mg capsule Take [...] (1,000 mcg total) by mouth daily Active denosumab (PROLIA) 60 mg/mL syringe Inject 1 mL (60 mg total) under the skin once Active Active Problems Problem Noted Date Diagnosed Date Mixed hyperlipidemia 04/26/2024 Cerebral infarction 04/26/2024 PFO (patent foramen ovale) 04/26/2024 Encounters Date Type Department Care Team Description 06/21/2024 Telephone [facility] Cardiology [address] [facility] 8th [place] [address] [place] [address] Eliseo Terrazas MD PhD Scheduling PFO closure 06/20/2024 Telephone [facility] Cardiology [address] [facility] 8th [place] [address] [place] [address] Eliseo Terrazas MD PhD 06/08/2024 3:00 PM CDT Office Visit [facility] Medical [facility] Cardiology [address] [facility] [address] [place] [address] Amrita Gomez NP PFO (patent foramen ovale) (Primary Dx); History of stroke 06/08/2024 Telephone [facility] Cardiology [address] [place] [address] [address] [place] [address] Amrita Gomez NP 05/04/2024 Telephone [facility] Cardiology [address] [place] [address] [address] [place] [phone] Maryjane Hernandez MD 05/04/2024 Results Follow-Up [facility] Cardiology [address] [place] [address] [address] [place] [phone] Maryjane Hernandez MD 05/01/2024 Orders Only [facility] Cardiology [address] [place] [address] [address] [place] [phone] ProviderJohn MD 04/26/2024 2:30 PM GAS INSPECTOR Office Visit [facility] Cardiology at [address] [place] [address] Maryjane Hernandez MD Mixed hyperlipidemia; Essential (primary) hypertension; Cerebral infarction, unspecified mechanism (HCC); Atrial septal aneurysm; PFO (patent foramen ovale) 04/26/2024 Orders Only [facility] Cardiology [address] [place] [address] [address] [place] [phone] John Henderson MD from Last 3 Months [...] on file Legal Sex Female 5:06 PM GAS INSPECTOR Gender Identity Not on file Sexual Orientation Not on file Obstetrics History Last Filed Vital Signs Vital Sign Reading Time Taken Comments Blood Pressure 100/72 06/08/2024 2:56 PM CDT Pulse 86 06/08/2024 2:56 PM CDT Temperature - - Respiratory Rate - - Oxygen Saturation 90% 06/08/2024 2:56 PM CDT Inhaled Oxygen Concentration - - Weight 71.2 kg (157 lb) 06/08/2024 2:56 PM CDT Height 172.7 cm (5' 8 ) 06/08/2024 2:56 PM CDT Body Mass Index 23.87 06/08/2024 2:56 PM CDT Plan of Treatment Upcoming Encounters Date Type Department Care Team (Latest Contact Info) Description 07/10/2024 9:40 AM CDT Hospital Encounter [facility] 1 [place] [address] Eliseo Terrazas MD PhD [address] [place] [address] PFO (patent foramen ovale) 07/10/2024 9:40 AM CDT - 07/10/2024 11:35 AM CDT Surgery [facility] 1 [place] [address] Eliseo Terrazas MD PhD [address] [place] [address] ATRIAL SEPTAL DEFECT (ASD), PATENT FORAMEN OVALE (PFO), FENESTRATION CLOSURE [address] Health Maintenance Due Date Last Done Comments Breast Cancer Screening-Mammogram 1961 Colon Cancer Screening-Colonoscopy 1961 Depression Screening 1961 Hepatitis C Screening 1961 Hepatitis B Screening 1979 Regular Well Visit/Exam 18-64 1979 DTaP/Tdap/Td Vaccine (2 - Td or Tdap) 10/30/2024 10/30/2014 Pneumococcal vaccine <65 Aged Out 10/30/2014 No longer eligible based on patient's age to complete this topic Zoster Vaccine Completed 11/21/2019, 03/24/2019 Influenza Vaccine Completed 11/12/2023, , 11/04/2022, Additional history exists Covid-19 Vaccine Completed 12/02/2023, , 05/25/2020 Procedures Procedure Name Priority Date/Time Associated Diagnosis Comments ELECTROCARDIOGRAM REPORT Routine 025 3:27 PM GAS INSPECTOR Essential (primary) hypertension Cerebral infarction, unspecified mechanism (HCC) Atrial septal aneurysm PFO (patent foramen ovale) from Last 3 Months Results * Electrocardiogram Report (04/26/2024 3:27 PM GAS INSPECTOR) us Ripa Kennedy Hernandez MD ECG ORDERABLES Final R esult from Last 3 Months Insurance [facility] MEDICARE ADVANTAGE Care Teams Welcome [facility] Agent Relationship Specialty Start Date End Date Lisset Napier MD [address] [place] [address] PCP - General Internal Medicine 04/11/24
--- OUTSIDE RECORDS SUMMARY | 2024-06-22 13:29 | XMS_ITS | Encounter Summary ---
Author Organization [facility] Address [address] [place] [address] Phone Care Team Providers Care Nephrology Nurse Name Role Phone Lisset Napier MD Primary Care Provider Reason for Visit * Reason Onset Date Comments Scheduling PFO closure 06/21/2024 Encounter Details Date Type Department Care Team (Late st Contact Info) Description 06/21/2024 Telephone [facility] Cardiology [facility] Advanced Medicine 8th [place] [address] [place] [address] Eliseo Terrazas MD PhD [address] [place], [place] [id number] Scheduling PFO closure Social History Tobacco Use Types Packs/Day Years Used Date Smoking Tobacco: Former Cigarettes Q uit: 05/31/2023 Passive Smoke Exposure: Past Smokeless Tobacco: Never Comments Unknown Sex and Gender Information Value Date Recorded Sex Assigned at Not on file Legal Sex Female 5:06 PM 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 She was agreeable to schedule the procedure for 07/10/24. Advised patient of pre-procedure instructions. Possible dates: 07/10, 07/17. Orders placed. No allergies. No medications to be held. She is aware the scientific laboratory supervisor will call the Wednesday before with arrival time and instructions re: medications. * Telephone Encounter - Mara Nina CPhT - 06/21/2024 9:19 AM CDT Good morning. I can offer possible dates to schedule patient for PFO Closure with Dr. Terrazas. It looks like all the documentation is in the patients chart. documented in this encounter Plan of Treatment Upcoming Encounters Date Type Department Care Team (Latest Contact Info) Description 07/10/2024 9:40 AM CDT Hospital Encounter [facility] Vascular [place] [address] [place] [address] Eliseo Terrazas MD PhD [address] [facility] [place] [address] PFO (patent foramen ovale) 07/10/2024 9:40 AM CDT - 07/10/2024 11:35 AM CDT Surgery [facility] Heart [facility] Vascular [place] [address] [place] [address] Eliseo Terrazas MD PhD [address] [place] [address] ATRIAL SEPTAL DEFECT (ASD), PATENT FORAMEN OVALE (PFO), FENESTRATION CLOSURE [address] Scheduled Orders Name Type Priority Associated Diagnoses Orde r Schedule CBC with auto differential Lab Routine PFO (patent foramen ovale) Expected: 06/25/2024, Expires: 06/22/2025 Basic metabolic panel Lab Routine PFO (patent foramen ovale) Expected: 06/26/2024, Expires: 06/22/2025 Urinalysis reflex to microscopic Lab Routine PFO (patent foramen ovale) Expected: 06/26/2024, Expires: 06/22/2025 documented as of this encounter Visit Diagnoses Diagnosis PFO (patent foramen ovale)- Primary Ostium secundum type atrial septal defect PFO (patent foramen ovale)- Primary Ostium secundum type atrial septal defect PFO (patent foramen ovale) Ostium secundum type atrial septal defect documented in this encounter Orders Case Request Count Last Ordered Date First Orde red Date CASE REQUEST CONDENSER OPERATOR 1 06/22/2024 documented in this encounter Care Teams Nephrology Nurse Relationship Specialty Start Date End Date Lisset Napier MD [address] [place] [address] PCP - General Internal Medicine 04/11/24 documented as of this encounter
--- OUTSIDE RECORDS SUMMARY | 2024-06-22 13:29 | XMS_ITS | Clinical Summary ---
Author Organization [facility] Address [address] [place] [address] Phone Care Team Providers Care Road Driver Name Role Phone Lisset Napier MD Primary [...] Furoate (Flonase Sensimist) 27.5 MCG/SPRAY Suspension 1 [place] by Nasal route daily. Active SUMAtriptan (IMITREX) 100 MG Tablet Take 100 mg by mouth daily as needed. Use as directed. May repeat dose in 2 hours if headache recurs. Active amLODIPine (NORVASC) 5 MG Tablet Take 5 mg by mouth daily. Active Encounters Date Type Department Care Team Description 04/05/2024 Telephone [facility] [address] [place] [address] Reno Rush MD from Last [...] on file Legal Sex Female 10:56 AM DIRECTOR OF SERVICES Gender Identity Not on file Sexual Orientation Not on file Plan of Treatment Upcoming Encounters Date Type Department Care Team (Late st Contact Info) Description 07/18/2024 1:30 PM CDT Office Visit [facility] - Neurology [facility] [address] [place] [address] Eugenia Mayen, HOME HEALTH CARE COORDINATOR, TRACK AND FIELD COACH [address] [place] [address] Health Maintenance Due Date Last Done Comments [...] MEDICARE C [employer] on file Care Teams Road Driver Relationship Specialty Start Date End Date Lisset Napier MD [address] [place] [address] PCP - General Internal Medicine 03/31/24
--- OUTSIDE RECORDS SUMMARY | 2024-06-22 13:29 | XMS_ITS | Referral Summary ---
Author Organization [place] [address] [place] [address] Care Team Providers Care Telephone Directory Distributor Driver Name Role Phone Lisset Napier MD Primary Care Provider Encounters Date Type Department Care Team Description 06/21/[address] Advanced Medicine 8th [place] [address] [place] [address] Eliseo Terrazas MD PhD Scheduling PFO closure 06/20/[address] 8th [place] [address] [place] [address] Eliseo Terrazas MD PhD 06/08/2024 Telephone [facility] [address] [place] [phone] Amrita Gomez NP 06/08/2024 3:00 PM CDT Office Visit [place] [address] [place] [phone] Amrita Gomez NP PFO (patent foramen ovale) (Primary Dx); History of stroke 05/04/2024 Telephone [place] [address] [place] [phone] Maryjane Hernandez MD 05/04/2024 Results Follow-Up [facility] [place] [address] [place] [phone] Maryjane Hernandez MD 05/01/2024 Orders Only [facility] [address] [place] [phone] John Henderson MD 04/26/2024 Orders Only [facility] Cardiology [address] [facility] [address] [place] [address] John Henderson MD 04/26/2024 2:30 PM BEDSPREAD FOLDER Office Visit [facility] Cardiology at [address] [place] [phone] Maryjane Hernandez MD Mixed hyperlipidemia; Essential (primary) [...] on file Legal Sex Female 5:06 PM BEDSPREAD FOLDER Gender Identity Not on file Sexual Orientation [...] Description 07/10/2024 9:40 AM CDT Hospital Encounter [facility] 1 [place] [address] Eliseo Terrazas MD PhD [address] [place] [address] PFO (patent foramen ovale) 07/10/2024 9:40 AM CDT - 07/10/2024 11:35 AM CDT Surgery [facility] [address] [place] [address] Eliseo Terrazas MD PhD [address] [place] [address] ATRIAL SEPTAL DEFECT (ASD), PATENT FORAMEN OVALE (PFO), FENESTRATION CLOSURE [id number] Procedures Procedure Name Priority Date/Time Associated Diagnosis Comments ELECTROCARDIOGRAM REPORT Routine 025 3:27 PM BEDSPREAD FOLDER Essential (primary) hypertension Cerebral infarction, unspecified mechanism (HCC) Atrial septal aneurysm PFO (patent foramen ovale) from Last 3 Months Results * Electrocardiogram Report (04/26/2024 3:27 PM BEDSPREAD FOLDER) [facility] Kennedy Hernandez MD ECG ORDERABLES Final R esult from Last 3 Months Insurance [facility] MEDICARE ADVANTAGE Care Teams Telephone Directory Distributor Driver Relationship Specialty Start Date End Date Lisset Napier MD [address] [place] [address] PCP - General Internal Medicine 04/11/24
--- OUTSIDE RECORDS SUMMARY | 2024-06-22 13:29 | XMS_ITS | Continuity of Care Document ---
Author Organization [facility] Address [address] [place] [address] Phone Care Team Providers Care 3D Animator Name Role Phone Alvaro Riojas MD Unavailable Unavailable Procedures Procedure Date Office/outpatient visit,est, mod 2012 Supplemental Report Supplemental Report Office/outpatient visit,est, [facility] 2012 Supplemental Report Office/outpatient visit,est, mod 2012 MRI Upper extr joint, w/o contrast Office consultation, moderate 3 Advance Directives Directive Yes / No Effective Date File Name No Information Encounters Encounter Description Practice Location Reason(s) For Visit Diagnoses Date Provider Providers Copied on Encounter Office/outpat ient visit,est, [facility], [address], [id number], tel:[phone] [facility] SPRAIN ROTATOR CUFF Beulah John. [address] [facility], [address], [place], [place], [id number] , [place]. tel:[phone] Office/outpat ient visit,est, [facility], [address], [id number], [place] tel:[phone] [facility] SPRAIN SHOULDER/ARM NOS Beulah John. [address] [facility], [address], [place], [place], [id number] , [place]. tel:[phone] Office/outpat ient visit,est, mod [facility], [address] [facility] [address], [place], [place], [id number], tel:[phone] [facility] ROTATOR CUFF SYND NOS Beulah John. [address] [facility], [address], [place], [place], [id number] , [place]. tel:[phone] [facility], [address] [facility] [address], [place], [place], [id number], tel:[phone] [facility] PAIN IN LIMBSPRAIN ROTATOR CUFF [facility]. [address] [place] [address], [address], [place], [place], [id number] , [place]. tel:[phone] Referring Provider: Alvaro Campuzano, [address] [facility] [address], [place], [address] . tel:[phone] Office consultation, moderate [facility], [address] [facility] [address], [place], [place], [id number], tel:[phone] [facility] SPRAIN SHOULDER/ARM NOS Beulah John. [address] [place] [address], [address], [place], [place], [id number] , [place]. [phone] Family History Family Member Type Diagnosis Age At Onset No Information Payers Payer name Insurance type Covered alliance party ID Authoriza [id number](s) [facility] [facility] [id number] Social History Type Description Quantity Date Captured [...]
--- OUTSIDE RECORDS SUMMARY | 2024-06-22 13:29 | XMS_ITS | Encounter Summary ---
Author Organization [facility] Healthcare Address [address] [place] [address] Care Team Providers Care Senior Service Aide Name Role Phone Lisset Napier MD Primary Care Provider Encounter Details Date Type Department Care Team (Late st Contact Info) Description 05/04/2024 Results Follow-Up [facility] Medical [facility] Cardiology [address] [place] [address] Maryjane Hernandez MD [facility] [address] Social History Tobacco Use Types Packs/Day Years Used Date Smoking Tobacco: Former Cigarettes Q uit: 05/31/2023 Passive Smoke Exposure: Past Smokeless Tobacco: Never Comments Unknown Sex and Gender Information Value Date Recorded Sex Assigned at Not on file Legal Sex Female 5:06 PM DEVOPS DEVELOPER Gender Identity Not on file Sexual Orientation Not on file documented as of this encounter Plan of Treatment Upcoming Encounters Date Type Department Care Team (Latest Contact Info) Description 07/10/2024 9:40 AM CDT Hospital Encounter [facility] [address] [place] [address] Eliseo Terrazas MD PhD [address] [facility] [address] [place] [address] PFO (patent foramen ovale) 07/10/2024 9:40 AM CDT - 07/10/2024 11:35 AM CDT Surgery [facility] [address] [place] [address] Eliseo Terrazas MD PhD [address] [place] [address] ATRIAL SEPTAL DEFECT (ASD), PATENT FORAMEN OVALE (PFO), FENESTRATION CLOSURE [address] documented as of this encounter Visit Diagnoses Not on filedocumented in this encounter Care Teams Senior Service Aide Relationship Specialty Start Date End Date Lisset Napier MD [address] [place] [address] PCP - General Internal Medicine 04/11/24 documented as of this encounter
--- OUTSIDE RECORDS SUMMARY | 2024-06-22 13:29 | XMS_ITS | Encounter Summary ---
Author Organization [facility] Address [address] [place] [address] Phone Care Team Providers Care Wearing Apparel Assembler Name Role Phone Lisset Napier MD Primary Care Provider Encounter Details Date Type Department Care Team (Late st Contact Info) Description 06/20/2024 Telephone [place] [id number] [facility] [address] [place] [address] [place] [address] Eliseo Terrazas MD PhD [address] [place] [address] Social History Tobacco Use Types Packs/Day Years Used Date Smoking Tobacco: Former Cigarettes Q uit: 05/31/2023 Passive Smoke Exposure: Past Smokeless Tobacco: Never Comments Unknown Sex and Gender Information Value Date Recorded Sex Assigned at Not on file Legal Sex Female 5:06 PM BEE RANCHER Gender Identity Not on file Sexual Orientation Not on file documented as of this encounter Miscellaneous Notes * Telephone Encounter - Ailyn Aparicio - 06/20/2024 3:52 PM CDT Nini Pt calling to speak to Nini team and schedule PFO closure documented in this encounter Plan of Treatment Upcoming Encounters Date Type Department Care Team (Latest Contact Info) Description 07/10/2024 9:40 AM CDT Hospital Encounter [facility] [address] [place] [address] Eliseo Terrazas MD PhD [address] [place] [address] PFO (patent foramen ovale) 07/10/2024 9:40 AM CDT - 07/10/2024 11:35 AM CDT Surgery [facility] [address] [place] [address] Eliseo Terrazas MD PhD [address] [place] [address] ATRIAL SEPTAL DEFECT (ASD), PATENT FORAMEN OVALE (PFO), FENESTRATION CLOSURE [address] documented as of this encounter Visit Diagnoses Not on filedocumented in this encounter Care Teams Wearing Apparel Assembler Relationship Specialty Start Date End Date Lisset Napier MD [address] [place] [address] PCP - General Internal Medicine 04/11/24 documented as of this encounter
== END 2024-06-22 12:26 | disposition home or self-care (01) ==
LOC: CHSIMG 12:26
PROVIDERS: PCP Internal Medicine; Visit Provider Internal Medicine
DX: Z12.2 Encounter for screening for malignant neoplasm of respiratory organs (principal); Z87.891 Personal history of nicotine dependence
CPT/HCPCS: 71271

== ENCOUNTER 2024-08-31 12:28 | Outpatient (CLI) | payer MEDICARE, SELFPAY ==
--- NOTE | ~2024-08-31 | DEXA_ITS ---
Bone Density Report Name: LINDA ELIZALDE Age: 64 Sex: Female Ethnicity: White Date of : 1960 Indication: osteopenia; monitoring treatment; height loss; hysterectomy; Referring Provider: Lisset Napier Study: Bone densitometry was performed. Exam Date: August 31, 2024 Accession number: [id number] Bone Density: Region BMD T-score Z-score Classification AP Spine(L1-L4) 0.989 -0.5 1.1 Normal Femoral Neck (Left) 0.608 -2.2 -0.7 Osteopenia Total Hip (Left) 0.723 -1.8 -0.7 Osteopenia Femoral Neck (Right) 0.539 -2.8 -1.4 Osteoporosis Total Hip (Right) 0.673 -2.2 -1.1 Osteopenia Femoral Neck Mean 0.573 -2.5 -1.0 Osteoporosis Total Hip Mean 0.698 -2.0 -0.9 Osteopenia World Health Organization criteria for BMD impression classify patients as: Normal (T-score at or above -1.0), Osteopenia (T-score between -1.0 and -2.5), or Osteoporosis (T-score at or below -2.5). 10-year Fracture Risk: FRAX not reported because: Some T-score for Spine Total or Hip Total or Femoral Neck at or below -2.5 Treated for osteoporosis Previous Exams: Region Exam Age BMD T-score BMD Change BMD Change Date g/cm2 vs Baseline vs Previous AP Spine (L1-L4) 08/31/2024 64 0.989 -0.5 0.023 (2.4%)* 0.023 (2.4%)* 08/24/2022 62 0.965 -0.7 Total Hip(Left) 08/31/2024 64 0.723 -1.8 0.018 (2.5%) 0.018 (2.5%) 08/24/2022 62 0.705 -1.9 Total Hip(Right) 08/31/2024 64 0.673 -2.2 0.007 (1.1%) 0.007 (1.1%) 08/24/2022 62 0.666 -2.3 *Denotes significance at 95% confidence level, LSC for AP Spine = 0.022 g/cm2, LSC for Total Hip = 0.027 g/cm2 Clinical Information Provided by Patient: Is being treated for osteoporosis Has used the following medications: Prolia (i.e. denosumab) Has the following medical conditions: Hysterectomy Patient maximum height was 68.5 Menopause Age: 62 No regular weight bearing exercise Does not regularly consume dairy products Drinks caffeinated beverages Onset of menses at age 14 Number of children 1 Impression: The patient has osteoporosis, based on the Right Femoral Neck T-score. No significant bone loss was observed. Discussion: PATIENT UNDER TREATMENT WITH NO SIGNIFICANT BMD LOSS SINCE LAST EXAM. In an untreated patient, BMD typically declines with age. A lack of decline or gain is usually a sign that treatment is efficacious and fracture risk is reduced. It is important to ask patients whether they are taking their medications and to encourage continued and appropriate compliance with their osteoporosis therapies to reduce fracture risk. It is also important to review their risk factors and encourage appropriate calcium and vitamin D intakes, exercise, fall prevention and other lifestyle measures. Follow-Up: Consider a repeat BMD and Vertebral Fracture Assessment (VFA) exam in 2 years or sooner if medically necessary, to reassess this patient's status. Reported by: SRIRAM on 08/31/2024 12:56:00 PM. Reviewed, dictated and finalized at location A.
--- NOTE | ~2024-08-31 | MM_ITS ---
EXAMINATION: MM screening [facility] BI w jayna HISTORY: Screening mammogram TECHNIQUE: Craniocaudal and mediolateral oblique 3-D tomosynthesis images were obtained and synthetic 2-D images were generated. CAD analysis was submitted and interpreted. COMPARISON: 08/30/2023, 08/24/2022, 08/11/2021, 08/07/2020, 04/14/2019 BREAST PARENCHYMAL COMPOSITION:Dense: The breasts are heterogeneously dense, which may obscure small masses. FINDINGS: No suspicious mass, calcification, or architectural distortion are identified in either ben ast to suggest malignancy. There has been no suspicious interval change. IMPRESSION: No mammographic evidence of malignancy. Recommend routine screening mammography in one year. BI-RADS Category 1: Negative Reviewed, dictated and finalized at location .
--- OUTSIDE RECORDS SUMMARY | 2024-08-31 12:31 | XMS_ITS | Continuity of Care Document ---
Author Organization [facility] Address [address] [place] [address] Phone Care Team Providers Care Wood Milling Machine Hand Name Role Phone Alvaro Riojas MD Unavailable Unavailable Procedures Procedure Date Office/outpatient visit,est, mod 2012 Supplemental Report Supplemental Report Office/outpatient visit,est, [facility] 2012 Supplemental Report Office/outpatient visit,est, mod 2012 MRI Upper extr joint, w/o contrast Office consultation, moderate 3 Advance Directives Directive Yes / No Effective Date File Name No Information Encounters Encounter Description Practice Location Reason(s) For Visit Diagnoses Date Provider Providers Copied on Encounter Office/outpat ient visit,est, [facility] [place] [facility], [address], [id number], tel:[phone] [facility] [employer] SPRAIN ROTATOR CUFF Beulah John. [address] [facility], [address], [place], [place], [id number] , [place]. tel:[phone] Office/outpat ient visit,est, [facility], [address], [id number], [place] tel:[phone] [facility] SPRAIN SHOULDER/ARM NOS Beulah John. [address] [facility], [address], [place], [place], [id number] , [place]. tel: [phone] Office/outpat ient visit,est, mod [facility], [address] [facility] [address], [place], [place], [id number], tel:[phone] [facility] ROTATOR CUFF SYND NOS Beulah John. [address] [facility], [address], [place], [place], [id number] , [place]. tel:[phone] [facility], [address] [facility] [address], [place], [place], [id number], tel:[phone] [facility] PAIN IN LIMBSPRAIN ROTATOR CUFF [facility]. [address] [place] [address], [address], [place], [place], [id number] , [place]. tel:[phone] Referring Provider: Alvaro Campuzano, [address] [facility] [address], [place], [address] . tel:[phone] Office consultation, moderate [facility], [address] [facility] [address], [place], [place], [id number], tel:[phone] [facility] SPRAIN SHOULDER/ARM NOS Beulah John. [address] [place] [address], [address], [place], [place], [id number] , [place]. [phone] Family History Family Member Type Diagnosis Age At Onset No Information Payers Payer name Insurance type Covered constitution party ID Authoriza [id number](s) [facility] [id number] Social History Type Description Quantity Date Captured [...]
--- OUTSIDE RECORDS SUMMARY | 2024-08-31 12:31 | XMS_ITS | Referral Summary ---
Author Organization [facility] [address] Address [address] [place] [address] Care Team Providers Care Music Box Mechanic Name Role Phone Lisset Napier MD Primary Care Provider [phone] Encounters Date Type Department Care Team Description 08/28/2024 Telephone [facility] Cardiology [address] [place] [address] Amrita Gomez NP 08/25/2024 8:00 AM CDT - 08/25/2024 9:55 AM CDT Surgery [facility] [address] [place] [phone] Eliseo Terrazas MD PhD ATRIAL SEPTAL DEFECT (ASD), PATENT FORAMEN OVALE (PFO), FENESTRATION CLOSURE [id number] 08/25/2024 6:35 AM CDT - 08/25/2024 1:18 PM CDT Hospital Encounter [facility] [address] [phone] Eliseo Terrazas MD PhD PFO (patent foramen ovale) Discharge Disposition: Discharge to home or self care 08/10/2024 11:20 AM CDT Lab [address] [phone] PFO (patent foramen ovale) 07/17/2024 Telephone [facility] Cardiology [address] [place] [address] 8th [place] [address] [place] [phone] Eliseo Terrazas MD PhD Reschedule procedure; PFO closure 07/07/2024 Telephone [facility] Cardiology [facility] Advanced Medicine 8th [place] [address] [place] [address] Mara Nina CPhT 07/03/2024 11:25 AM CDT Lab [facility] [address] [place] [address] PFO (patent foramen ovale) 06/21/2024 Telephone [facility] Cardiology [address] [place] [address] 8th [place] [address] [place] [address] Eliseo Terrazas MD PhD Scheduling PFO closure 06/20/[address] 8th [place] [address] [place] [address] Eliseo Terrazas MD PhD 06/08/2024 Telephone [facility] Cardiology [address] [place] [address] [place] [phone] Amrita Gomez NP 06/08/2024 3:00 PM CDT Office Visit [facility] Cardiology [address] [place] [address] [place] [phone] Amrita Gomez NP PFO (patent foramen ovale) (Primary Dx); History of stroke from Last 3 Months Allergies Active Allergy [...] mg total) under the skin once Active clopidogreL (PLAVIX) 75 mg tabletIndicatio ns:s/p PFO closure Take 1 tablet (75 mg total) by mouth daily 30 tablet 2 08/25/2024 Active Active Problems Problem Noted Date Diagnosed Date Mixed hyperlipidemia 04/26/2024 Cerebral infarction 04/26/2024 PFO (patent foramen ovale) 04/26/2024 Social History Tobacco Use Types Packs/Day Years Used Date Smoking Tobacco: Former Cigarettes Q uit: 05/31/2023 Passive Smoke Exposure: Past Smokeless Tobacco: Never Tobacco Cessation:Counseling Given: Not Answered AUDIT-C Answer Date Recorded Q1: How often do you have a drink containing alcohol? Never 08/25/2024 Q2: How many drinks containi ng alcohol do you have on a typical day when you are drinking? Patient does not drink Q3: How often do you have si x or more drinks on one occasion? Never 08/25/2024 Personal Safety Answer Date Recorded Have you ever been in or are you currently in a harmful physical or emotional relationship or is someone making you feel afraid or unsafe? 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 Gender Identity Not on file Sexual Orientation Not on file Last Filed Vital Signs Vital Sign Reading Time Taken Comments Blood Pressure 125/81 08/25/2024 12:45 PM CDT Pulse 68 08/25/2024 12:45 PM CDT Temperature 36.6 C (97.9 F) 08/25/2024 7:00 AM CDT Respiratory Rate 15 08/25/2024 12:45 PM CDT Oxygen Saturation 93% 08/25/2024 12:45 PM CDT Inhaled Oxygen Concentration - - Weight 71.8 kg (158 lb 4.6 oz) 08/25/2024 7:00 A M CDT Height 172.7 cm (5' 8) 08/25/2024 7:00 AM CDT Body Mass Index 24.07 08/25/2024 7:00 AM CDT Plan of Treatment Not on file Goals Goal Patient Goal Type Associated Problems Recent Progress Patient-Stated? Author Autogenerat ed Goal Care Plan Autogenerated Problem No [employer] Implanted Type Area Professional Services Manager Device Identifier Shelf Expiration Date Model / Serial / Lot [employer] System Closure Repair Femoral Artery Suture Mediated Perclose Prostyle 83036-16 - [id number] - [id number] Implanted:Qty : 1 on 08/25/2024 by Eliseo Terrazas MD PhD at [facility] PDA Closure Device N/A: Atrial Septal Defect [employer] 05/29/2026 [id number] / [id number] / [id number] [employer] Occluder Cvasc Pfo Closure Amplatzer Talisman [id number] 9-[id number] - [id number] - [id number] Implanted:Qty : 1 on 08/25/2024 by Eliseo Terrazas MD PhD at [facility] Septal Defect Closure Device N/A: Atrial Septal Defect [employer] 03/31/2027 9-[id number]-302 [id number] / [id number] / [id number] Procedures Procedure Name Priority Date/Time Associated Diagnosis Comments TRANSTHORACIC ECHO (TTE) LIMITED/FOLLOW UP W LTD DOPPLER/CF WO CONTRAST W BUBBLE Routine 08/25/2024 11:25 AM CDT XR CHEST 1 VIEW Pending Discharge 08/25/2024 9:49 AM CDT POCT ACTIVATED CLOTTING TIME, LOW RANGE Routine 08/25/2024 9:27 AM CDT ATRIAL SEPTAL DEFECT CLOSURE Routine 08/25/2024 9:12 AM CDT PFO (patent foramen ovale) POCT ACTIVATED CLOTTING TIME, LOW RANGE Routine 08/25/2024 9:02 AM CDT POCT ACTIVATED CLOTTING TIME, LOW RANGE Routine 08/25/2024 8:45 AM CDT POCT ACTIVATED CLOTTING TIME, LOW RANGE Routine 08/25/2024 8:31 AM CDT B CHECK SAMPLE STAT 08/25/2024 7:55 AM CDT TYPE AND SCREEN STAT 08/25/2024 7:30 AM CDT ECG 12-LEAD Routine 08/25/2024 6:42 AM CDT EGFR Routine 08/10/2024 11:26 AM CDT PFO (patent foramen ovale) DIFFERENTIAL AUTO Routine 08/10/2024 11: 26 AM CDT PFO (patent foramen ovale) BASIC METABOLIC PANEL Routine 08/10/2024 11:26 AM CDT PFO (patent foramen ovale) CBC WITH AUTO DIFFERENTIAL Routine 08/10/2024 11:26 AM CDT PFO (patent foramen ovale) URINALYSIS AND REFLEX TO MICROSCOPIC Routine 08/10/2024 11:26 AM CDT PFO (patent foramen ovale) EGFR Routine 07/03/2024 11:36 AM CDT PFO (patent foramen ovale) DIFFERENTIAL AUTO Routine 07/03/2024 11: 36 AM CDT PFO (patent foramen ovale) CBC WITH AUTO DIFFERENTIAL Routine 07/03/2024 11:36 AM CDT PFO (patent foramen ovale) BASIC METABOLIC PANEL Routine 07/03/2024 11:36 AM CDT PFO (patent foramen ovale) URINALYSIS AND REFLEX TO MICROSCOPIC Routine 07/03/2024 11:26 AM CDT PFO (patent foramen ovale) from Last 3 Months Results * TRANSTHORACIC ECHO (TTE) LIMITED/FOLLOW UP W LTD DOPPLER/CF WO CONTRAST W BUBBLE (08/25/2024 11:25 AM CDT) Anatomical Region Laterality Modality Ultrasound 08/25/2024 10:4 2 AM CDT Narrative 08/25/2024 1:02 PM CDT [facility] Cardiac [place] [address] Transthoracic Echocardiographic Report Patient Name: LORIE ELIZALDE S : 1960 (64y 6m) Gender: F Study Date: 08/25/2024 10:42:50 AM Ht(Inch): 68 Wt(Lb): 158.07 BSA: 1.85 Farm Field Manager: Heidi Chandler [facility] Location: 55 Order Provider: ARTIS REYNOLDS Heart Rate: 67 BMI: 24.03 BP: 144 / 86 Ref Provider: ARTIS REYNOLDS PROCEDURES: Echocardiographic Report: Limited transthoracic 2D echo, includes spectral and tissue Doppler, color flow Doppler, and/or M-mode, when performed. Additional Procedures: Agitated saline bubble study. INDICATIONS: POST PFO/ASD CLOSURE. CONCLUSIONS: 1. Concentric LV hypertrophy. The average global longitudinal strain is abnormal. 2. Mild right ventricular hypokinesis. 3. Limited study to evaluate after PFO closure procedure. Agitated saline bubble study is negative for intracardiac shunt at rest and post-Valsalva. An occlusion device is seen across the interatrial septum. ATTESTATION: I have personally reviewed and interpreted this study without fellow or resident. - DISCLAIMER: The study images and the final report will be retained in the patient chart by the Echo Laboratory for the legally required time period. This chart constitutes the legal record of any testing performed. FINDINGS: Left Ventricle: Concentric LV hypertrophy. The average global longitudinal strain is abnormal. The LV global strain is: -13.9 %. Right Ventricle: Mild right ventricular hypokinesis. Left Atrium: The left atrium is not well visualized due to limited study. Right Atrium: The right atrium is not well visualized due to limited study. Atrial Septum: Agitated saline bubble study is negative for intracardiac shunt at rest and post-Valsalva. An occlusion device is seen across the interatrial septum. Mitral Valve: Mitral valve is not well visualized due to limited study. Aortic Valve: Aortic valve not well visualized due to limited study. Tricuspid Valve: Tricuspid valve is not well visualized due to limited study. Pulmonic Valve: The pulmonic valve is not well visualized due to limited study. Pericardium: The pericardium is not well visualized due to limited study. Aorta: Aorta not well visualized due to limited study. MEASUREMENTS: 2D/MM Value Range Doppler Value Range LVIDd 2D 4.78 cm [ 3.80 - 5.20 ] RV S` 10.64 cm/sec LVIDs 2D 3.03 cm [ 2.20 - 3.50 ] IVSd 2D 1.15 cm [ 0.60 - 0.90 ] LVPWd 2D 1.14 cm [ 0.60 - 0.90 ] LV Thickness Ratio 1.0 LV FS 2D 36.52 % [ 27.00 - 45.00 ] LV Mass 2D 207.25 g LV Mass Index 2D 112.03 g/m2 RWT 0.48 LV GLS -13.9 % [ -25.0 - -18.0 ] TAPSE 1.38 cm [ 1.71 - 5.00 ] Electronically Signed By: Shlomo Mendoza MD 08/25/2024 1:02:11 PM CDT Procedure Note Shlomo Mendoza MD - 08/25/2024 [facility] Card[place] [address] Transthoracic Echocardiographic Report Patient Name: LORIE ELIZALDE S : 1960 (64y 6m) Gender: F Study Date: 08/25/2024 10:42:50 AM Ht(Inch): 68 Wt(Lb): 158.07 BSA: 1.85 Farm Field Manager: Heidi Chandler [facility] Location: 5514 Order Provider: ARTIS REYNOLDS Heart Rate: 67 BMI: 24.03 BP: 144 / 86 Ref Provider:ARTIS REYNOLDS PROCEDURES: Echocardiographic Report: Limited transthoracic 2D echo, includes spectraland tissue Doppler, color flow Doppler, and/or M-mode, when performed. Additional Procedures: Agitated saline bubble study. INDICATIONS: POST PFO/ASD CLOSURE. CONCLUSIONS: 1. Concentric LV hypertrophy. The average global longitudinal strain isabnormal. 2. Mild right ventricular hypokinesis. 3. Limited study to evaluate after PFO closure procedure. Agitated salinebubble study is negative for intracardiac shunt at rest and post-Valsalva. An occlusiondevice is seen across the interatrial septum. ATTESTATION: I have personally reviewed and interpreted this study without fellow orresident. - DISCLAIMER: The study images and the final report will be retained in the patientchart by the Echo Laboratory for the legally required time period. This chart constitutesthe legal record of any testing performed. FINDINGS: Left Ventricle: Concentric LV hypertrophy. The average global longitudinalstrain is abnormal. The LV global strain is: -13.9 %. Right Ventricle: Mild right ventricular hypokinesis. Left Atrium: The left atrium is not well visualized due to limitedstudy. Right Atrium: The right atrium is not well visualized due to limitedstudy. Atrial Septum: Agitated saline bubble study is negative for intracardiacshunt at rest and post-Valsalva. An occlusion device is seen across the interatrialseptum. Mitral Valve: Mitral valve is not well visualized due to limited study. Aortic Valve: Aortic valve not well visualized due to limited study. Tricuspid Valve: Tricuspid valve is not well visualized due to limitedstudy. Pulmonic Valve: The pulmonic valve is not well visualized due to limitedstudy. Pericardium: The pericardium is not well visualized due to limitedstudy. Aorta: Aorta not well visualized due to limited study. MEASUREMENTS: 2D/MM Value Range Doppler ValueRange LVIDd 2D 4.78 cm [ 3.80 - 5.20 ] RV S` 10.64cm/sec LVIDs 2D 3.03 cm [ 2.20 - 3.50 ] IVSd 2D 1.15 cm [ 0.60 - 0.90 ] LVPWd 2D 1.14 cm [ 0.60 - 0.90 ] LV Thickness Ratio 1.0 LV FS 2D 36.52 % [ 27.00 - 45.00 ] LV Mass 2D 207.25g LV Mass Index 2D 112.03g/m2 RWT 0.48 LV GLS -13.9 % [ -25.0 - -18.0 ] TAPSE 1.38 cm [ 1.71 - 5.00 ] Electronically Signed By: Shlomo Mendoza MD 08/25/2024 1:02:11 PM CDT Artis Reynolds NP CV ECHO PROCEDURES Fin al Result * XR Chest 1 View (08/25/2024 9:49 AM CDT) Anatomical Region Laterality Modality Body, Chest N/A Computed Radiogr aphy 08/25/2024 9:52 AM CDT Impressions 08/25/2024 10:22 AM CDT No comparison available. No pulmonary consolidation. No pleural effusion or pneumothorax. Normal cardiac silhouette. Tortuous thoracic aorta. Dictated by: Toya Alvarez MD The radiology attending physician has personally reviewed this study, and had reviewed and/or edited this written report and agrees with it. Electronically signed by: Rosendo Christianson M.D. Narrative 08/25/2024 10:22 AM CDT EXAMINATION: 1 view chest radiograph Procedure Note Rosendo Christianson MD - 08/25/2024 EXAMINATION: 1 view chest radiograph IMPRESSION: No comparison available. No pulmonary consolidation. No pleural effusion or pneumothorax. Normal cardiac silhouette. Tortuous thoracic aorta. Dictated by: Toya Alvarez MD The radiology attending physician has personally reviewed this study, and had reviewed and/or edited this written report and agrees with it. Electronically signed by: Rosendo Christianson M.D. Artis Reynolds FLIGHT OPERATIONS COORDINATOR IMG XR PROCEDURES Ave l Result * (ABNORMAL) POCT Activated clotting time, low range (08/25/2024 9:27 AM CDT) ACT 310(H) 123 - 168 sec POC Performer [id number] [facility] POC Device Number [id number] [facility] Blood 08/25/2024 9:27 AM CDT 08/25/2024 9:27 AM CDT us Eliseo Terrazas MD PhD LAB POCT ORDERABLES - KAUR CE Final Result [facility] Department [place] [address] * ATRIAL SEPTAL DEFECT CLOSURE (08/25/2024 9:12 AM CDT) Anatomical Region Laterality Modality X-Ray Angiograph y Narrative 08/25/2024 9:27 AM CDT PFO closure Interventional fellow: Dr. Reyes Cobian emergency room tech: Dr. Kan Han HPI: 64-year-old female with a history of 2 prior CVAs now referred for PFO closure. Patient had an initial neurologic event that the age of 26 secondary to oral contraceptives and tobacco use. She recently presented in March of 2024 with tingling in her left arm and hand. Brain MRI noted acute infarcts in the right temporal and parietal lobes and a chronic left middle cerebral artery infarct. Russell confirmed a large PFO with atrial septal aneurysm and markedly positive bubble study. Neurologically she has some residual weakness in her left hand and a mild expressive aphasia. PFO closure was requested. Procedure: Patient was prepped and draped in sterile fashion. 1% local lidocaine anesthesia was utilized. Fentanyl and Versed were given as premedication. Ancef was given prophylactically. Aspirin was given preprocedure and Plavix 600 mg orally postprocedure. Using ultrasound directed micropuncture technique, an 8 Italian sheath inserted into the right femoral vein and an 8 Italian 25 cm sheath in the left femoral vein using percutaneous approach. Six Italian Perclose device was deployed in both sites prior to sheath insertion. Imaging was performed via the left femoral vein with an 8 Italian [email or web address] intracardiac echo system. Interatrial septum was crossed with a 6 Italian multipurpose catheter 1.5 mm J-tip Amplatzer wire. This was exchanged for a 9 Italian 45 degree Trevisio sheath for deployment of a 30 mm Amplatzer PFO occluder. Bubble study was negative at rest. Intracardiac echo and PFO closure: Intracardiac ECHO reveals normal left and right ventricular function without evidence of regional wall motion abnormalities. The mitral, tricuspid, pulmonic, and aortic valves are flexible without stenosis or vegetation or any significant regurgitation. There is no pericardial effusion pre or postprocedure. The pulmonary veins come in the usual location. Interatrial septum has a very floppy atrial septal aneurysm and a long tunnel PFO. This was easily crossed. A 30 mm device was tented up against the interatrial septum from the left atrial side with the right side was deployed. Care was taken to assure there is no encroachment on the mitral valve, pulmonary veins or superior vena cava. The device was subsequently detached and bubble study negative at rest. Overall impression: 1. History of multiple prior CVAs involving left middle cerebral artery, right temporal and parietal lobes. 2. Successful PFO closure with 30 mm Amplatzer PFO occluder. 3. History of hypertension and hyperlipidemia. 4. History of former tobacco use. Therapy recommendations: Patient should maintain on Plavix for 3 months and aspirin indefinitely. SBE precautions should be followed with the next couple years. Transthoracic echo with bubble study should be performed in 2-3 months. Long-term cardiology follow-up will be provided in [place], [place] with Dr. Amrita Gomez. Eliseo Terrazas MD PhD CV CARDIAC CATH PROCEDURES Final Result * (ABNORMAL) POCT Activated clotting time, low range (08/25/2024 9:02 AM CDT) ACT 385(H) 123 - 168 sec POC Performer [id number] [facility] POC Device Number [id number] [facility] Blood 08/25/2024 9:02 AM CDT 08/25/2024 9:02 AM CDT Eliseo Terrazas MD PhD LAB POCT ORDERABLES - KAUR CE Final Result Performing Organization Address [facility]/ZIP Co de Phone Number [facility] [place] [address] * (ABNORMAL) POCT Activated clotting time, low range (08/25/2024 8:45 AM CDT) ACT 279(H) 123 - 168 sec POC Performer [id number] [facility] POC Device Number [id number] [facility] Blood 08/25/2024 8:45 AM CDT 08/25/2024 8:45 AM CDT Eliseo Terrazas MD PhD LAB POCT ORDERABLES - KAUR CE Final Result [facility] [place] [address] * (ABNORMAL) POCT Activated clotting time, low range (08/25/2024 8:31 AM CDT) ACT 273(H) 123 - 168 sec POC Performer [id number] [facility] POC Device Number [id number] [facility] Blood 08/25/2024 8:31 AM CDT 08/25/2024 8:31 AM CDT us Eliseo Terrazas MD PhD LAB POCT ORDERABLES - KAUR CE Final Result Performing Organization Address [facility] Co de Phone Number [facility] [place] [address] * Check Sample (08/25/2024 7:55 AM CDT) ABO Rh B Positive [facility] HC[facility] OTHER 08/25/2024 7:55 AM CDT 08/25/2024 9:08 AM CDT us Eliseo Terrazas MD PhD LAB BLOOD ORDERABLES Final Result Performing Organization Address [facility] Co de Phone Number [facility] [place] [address] [facility] * Type and screen (08/25/2024 7:30 AM CDT) ABO Rh B Positive Huong, indirect Negative [facility] Blood 08/25/2024 7:30 AM CDT 08/25/2024 7:53 AM CDT Eliseo Terrazas MD PhD LAB BLOOD BANK TEST ORDERA BLES Final Result Performing Organization Address City/[facility] Co de Phone Number [facility] [place] [address] * ECG 12 lead (08/25/2024 6:42 AM CDT) Ventricular Rate EKG/Min 71 BPM [facility] Atrial Rate 71 BPM [facility] WI-Interval (MSEC) 164 ms [facility] QRS-Interval (MSEC) 90 ms [facility] QT-Interval (MSEC) 430 ms [facility] QTc 467 ms [facility] P [place] 46 degrees [facility] R [place] -46 degrees [facility] T [place] 7 degrees [facility] Diagnosis Normal sinus rhythm Left anterior fascicular block Abnormal ECG No previous ECGs available Confirmed by LENO HEATON M.D ([id number]) on 08/25/2024 10:30:46 AM [facility] 08/25/2024 6:42 AM CDT 08/25/2024 10:30 AM CDT us Eliseo Terrazas MD PhD ECG ORDERABLES Final Resu lt [facility] * eGFR (08/10/2024 11:26 AM CDT) eGFR 69 >=60 mL/min/1. 73 m2 Comment: Interpretive Data Reference Interval Normal >/= 90 mL/min/1.73m2 Mildly decreased* 60 - 89 mL/min/1.73m2 Mildly to moderately decreased 45 - 59 mL/min/1.73m2 Moderately to severely decreased 30 - 44 mL/min/1.73m2 Severely decreased 15 - 29 mL/min/1.73m2 Kidney Failure < 15 mL/min/1.73m2 *Relative to young adult level Estimated glomerular filtration rate is determined by the 2020 CKD-EPI equation recommended by the National Kidney Foundation (A Unifying Approach to GFR Estimation: Recommendations of the NKF-ASK Task Force on Reassessing the Inclusion of Race in Diagnosing Kidney Disease, JASN 2020). The CKD-EPI equation should not be used for patients with unstable renal function and has not been validated in children and those over 70. Current interpretive data was last reviewed 2020. Blood 08/10/2024 11:2 6 AM CDT 08/10/2024 12:01 PM CDT us Eliseo Terrazas MD PhD LAB BLOOD ORDERABLES Final Result [facility] 1 [facility] Department [place] [address] * Differential, auto (08/10/2024 11:26 AM CDT) Neutrophil abs 4.15 1.50 - 6.50 K/cumm Imm gran abs 0.01 0.00 - 0.10 K/cumm [facility] Lymphocyte abs 1.85 0.80 - 3.30 K/cumm [facility] Monocyte abs 0.61 0.20 - 0.80 K/cumm [facility]) Eosinophil abs 0.11 0.00 - 0.50 K/cumm [facility]) Basophil abs 0.08 0.00 - 0.10 K/cumm [facility]) Neutrophil pct 60.9 % [facility] Comment: Interpretive Data Percent cell count reference ranges are not reported, since discordance with absolute values may lead to misinterpretation of CBC data. Current Interpretive Data was last revised on 2017. Imm gran pct 0.1 % [facility] Comment: Interpretive Data Percent cell count reference ranges are not reported, since discordance with absolute values may lead to misinterpretation of CBC data. Current Interpretive Data was last revised on 2017. Lymphocyte pct 27.2 % [facility] Comment: Interpretive Data Percent cell count reference ranges are not reported, since discordance with absolute values may lead to misinterpretation of CBC data. Current Interpretive Data was last revised on 2017. Monocyte pct 9.0 % [facility] Comment: Interpretive Data Percent cell count reference ranges are not reported, since discordance with absolute values may lead to misinterpretation of CBC data. Current Interpretive Data was last revised on 2017. Eosinophil pct 1.6 % [facility] Comment: Interpretive Data Percent cell count reference ranges are not reported, since discordance with absolute values may lead to misinterpretation of CBC data. Current Interpretive Data was last revised on 2017. Basophil pct 1.2 % [facility] Comment: Interpretive Data Percent cell count reference ranges are not reported, since discordance with absolute values may lead to misinterpretation of CBC data. Current Interpretive Data was last revised on 2017. Blood 08/10/2024 11:2 6 AM CDT 08/10/2024 12:01 PM CDT us Eliseo Terrazas MD PhD LAB BLOOD ORDERABLES Final Result [facility] 1 [facility] Department [place] [address] * Urinalysis reflex to microscopic (08/10/2024 11:26 AM CDT) Color, ur Yellow Yellow Clarity, ur Clear Clear [facility]) Specific gravity, ur 1.015 1.003 - 1.030 [facility] [facility] ([place]) pH, urine 7.5 [facility] ([place]) Comment: Interpretive Data U rine pH is affected by diet, medications, systemic acid-base disturbances, and renal tubular function. pH may affect urinary stone formation. For example, urine pH below 6.0 may help reduce the tendency for calcium phosphate stones and pH greater than 6.0 may reduce the tendency for uric acid stone formation. Source: [facility] Current Interpretive Data was last revised on 2017 Protein, ur ql Negative Negative [facility] ([place]) Glucose, ur ql Negative Negative [facility] ([place]) Ketones, ur Negative Negative [facility] ([place]) Bilirubin, ur Negative Negative [facility] ([place]) Blood, ur Negative Negative [facility] ([place]) Urobilinogen, ur <2.0 <2.0 mg/dL [facility] ([place]) Nitrite, ur Negative Negative [facility] ([place]) Leukocyte esterase, ur Negative Negative [facility] ([place]) UA reflex comment Reflex conditions for microscopic UA not met. [facility] ([place]) Urine 08/10/2024 11:2 6 AM CDT 08/10/2024 12:02 PM CDT Narrative [facility] ([place]) - 08/10/2024 12:08 PM CDT Please send results to . Thank you. us Eliseo Terrazas MD PhD LAB URINE ORDERABLES Final Result [facility] ([place]) 1 [facility] [employer] [place] [address] * CBC with auto differential (08/10/2024 11:26 AM CDT) WBC 6.81 3.80 - 9.90 K/cumm Hgb 12.8 11.9 - 15.5 g/dL [facility] ([place]) Hct 38.5 35.6 - 45.5 % [facility] ([place]) Plt 264 150 - 400 K/cumm [facility] ([place]) MPV 11.7 9.1 - 12.3 fL [facility] ([place]) RBC 4.28 3.90 - 5.20 M/cumm [facility] ([place]) MCV 90.0 81.3 - 96.4 fL [facility] ([place]) MCH 29.9 27.1 - 33.3 pg [facility] ([place]) MCHC 33.2 32.3 - 35.7 g/dL [facility] ([place]) RDW CV 13.2 11.1 - 14.9 % [facility] ([place]) RDW SD 43.8 35.7 - 48.1 fL [facility] ([place]) NRBC abs 0.00 0.00 - 0.01 K/cumm [facility] ([place]) Blood 08/10/2024 11:2 6 AM CDT 08/10/2024 12:01 PM CDT Narrative [facility] ([place]) - 08/10/2024 12:06 PM CDT Please fax results to . Thank you. Please send results to . Thank you. us Eliseo Terrazas MD PhD LAB BLOOD ORDERABLES Final Result [facility] ([place]) 1 [facility] [employer] [place] [address] * Basic metabolic panel (08/10/2024 11:26 AM CDT) Sodium 141 135 - 145 mmol/L Potassium, pl 4.0 3.3 - 4.9 mmol/L [facility] ([place]) Chloride 102 97 - 110 mmol/L [facility] ([place] CO2 26 22 - 32 mmol/L [facility] ([place]) Anion gap 13 2 - 15 mmol/L [facility] ([place]) BUN 21 6 - 25 mg/dL [facility] ([place]) Creatinine 0.93 0.60 - 1.10 mg/dL [facility] ([place]) Glucose 87 70 - 199 mg/dL [facility] ([place]) Comment: Interpretive Data Fasting glucose >/= 126 mg/dl is diagnostic for diabetes. Fasting is defined as no caloric intake for at least 8 hours. Fasting glucose between 100 mg/dl to 125 mg/dl is diagnostic of prediabetes. In a patient with classic symptoms of hyperglycemia or hyperglycemic crisis, a random glucose >/= 200 mg/dl is diagnostic for diabetes. In the absence of unequivocal hyperglycemia, results should be confirmed by repeat testing. The classification and Diagnosis of Diabetes Diabetes Care 2021; 46: S19-S40. Current interpretive data was last revised 2022. Calcium 9.4 8.5 - 10.3 mg/dL [facility] ([place]) Blood 08/10/2024 11:2 6 AM CDT 08/10/2024 12:01 PM CDT Narrative [facility] ([place]) - 08/10/2024 12:44 PM CDT Please fax results to . Thank you. Please send results to . Thank you. us Eliseo Terrazas MD PhD LAB BLOOD ORDERABLES Final Result [facility]) 1 [facility] Department [place] [address] * eGFR (07/03/2024 11:36 AM CDT) eGFR 66 >=60 mL/min/1. 73 m2 Comment: Interpretive Data Reference Interval Normal >/= 90 mL/min/1.73m2 Mildly decreased* 60 - 89 mL/min/1.73m2 Mildly to moderately decreased 45 - 59 mL/min/1.73m2 Moderately to severely decreased 30 - 44 mL/min/1.73m2 Severely decreased 15 - 29 mL/min/1.73m2 Kidney Failure < 15 mL/min/1.73m2 *Relative to young adult level Estimated glomerular filtration rate is determined by the 2020 CKD-EPI equation recommended by the National Kidney Foundation (A Unifying Approach to GFR Estimation: Recommendations of the NKF-ASK Task Force on Reassessing the Inclusion of Race in Diagnosing Kidney Disease, JASN 2020). The CKD-EPI equation should not be used for patients with unstable renal function and has not been validated in children and those over 70. Current interpretive data was last reviewed 2020. Blood 07/03/2024 11:3 6 AM CDT 07/03/2024 12:09 PM CDT Eliseo Terrazas MD PhD LAB BLOOD ORDERABLES Final Result [facility] ([place]) 1 [facility] Department [place] [address] * Differential, auto (07/03/2024 11:36 AM CDT) Neutrophil abs 3.29 1.50 - 6.50 K/cumm Imm gran abs 0.01 0.00 - 0.10 K/cumm [facility] ([place]) Lymphocyte abs 1.59 0.80 - 3.30 K/cumm [facility] ([place]) Monocyte abs 0.52 0.20 - 0.80 K/cumm [facility] ([place]) Eosinophil abs 0.09 0.00 - 0.50 K/cumm [facility] ([place]) Basophil abs 0.06 0.00 - 0.10 K/cumm [facility] ([place]) Neutrophil pct 59.1 % [facility] ([place]) Comment: Interpretive Data Percent cell count reference ranges are not reported, since discordance with absolute values may lead to misinterpretation of CBC data. Current Interpretive Data was last revised on 2017. Imm gran pct 0.2 % [facility] ([place]) Comment: Interpretive Data Percent cell count reference ranges are not reported, since discordance with absolute values may lead to misinterpretation of CBC data. Current Interpretive Data was last revised on 2017. Lymphocyte pct 28.6 % [facility] ([place]) Comment: Interpretive Data Percent cell count reference ranges are not reported, since discordance with absolute values may lead to misinterpretation of CBC data. Current Interpretive Data was last revised on 2017. Monocyte pct 9.4 % [facility] ([place]) Comment: Interpretive Data Percent cell count reference ranges are not reported, since discordance with absolute values may lead to misinterpretation of CBC data. Current Interpretive Data was last revised on 2017. Eosinophil pct 1.6 % [facility] ([place]) Comment: Interpretive Data Percent cell count reference ranges are not reported, since discordance with absolute values may lead to misinterpretation of CBC data. Current Interpretive Data was last revised on 2017. Basophil pct 1.1 % [facility] ([place]) Comment: Interpretive Data Percent cell count reference ranges are not reported, since discordance with absolute values may lead to misinterpretation of CBC data. Current Interpretive Data was last revised on 2017. Blood 07/03/2024 11:3 6 AM CDT 07/03/2024 12:08 PM CDT Eliseo Terrazas MD PhD LAB BLOOD ORDERABLES Final Result [facility] ([place]) 1 [facility] Department [place] [address] * CBC with auto differential (07/03/2024 11:36 AM CDT) WBC 5.56 3.80 - 9.90 K/cumm Hgb 12.8 11.9 - 15.5 g/dL [facility] ([place]) Hct 38.4 35.6 - 45.5 % [facility] ([place]) Plt 263 150 - 400 K/cumm [facility] ([place]) MPV 11.6 9.1 - 12.3 fL [facility] ([place]) RBC 4.21 3.90 - 5.20 M/cumm [facility] ([place]) MCV 91.2 81.3 - 96.4 fL [facility] MCH 30.4 27.1 - 33.3 pg [facility] ([place]) MCHC 33.3 32.3 - 35.7 g/dL [facility] ([place]) RDW CV 13.4 11.1 - 14.9 % [facility] ([place]) RDW SD 45.1 35.7 - 48.1 fL [facility] ([place]) NRBC abs 0.00 0.00 - 0.01 K/cumm [facility] ([place]) Blood 07/03/2024 11:3 6 AM CDT 07/03/2024 12:08 PM CDT Eliseo Terrazas MD PhD LAB BLOOD ORDERABLES Final Result [facility] ([place]) 1 [facility] Department [place] [address] * (ABNORMAL) Basic metabolic panel (07/03/2024 11:36 AM CDT) Sodium 137 135 - 145 mmol/L Potassium, pl 3.9 3.3 - 4.9 mmol/L [facility] ([place]) Chloride 102 97 - 110 mmol/L [facility] ([place]) CO2 24 22 - 32 mmol/L [facility] ([place]) Anion gap 11 2 - 15 mmol/L [facility] ([place]) BUN 19 6 - 25 mg/dL [facility] ([place]) Creatinine 0.97 0.60 - 1.10 mg/dL [facility] ([place]) Glucose 60(L) 70 - 199 mg/dL [facility] ([place]) Comment: Interpretive Data Fasting glucose >/= 126 mg/dl is diagnostic for diabetes. Fasting is defined as no caloric intake for at least 8 hours. Fasting glucose between 100 mg/dl to 125 mg/dl is diagnostic of prediabetes. In a patient with classic symptoms of hyperglycemia or hyperglycemic crisis, a random glucose >/= 200 mg/dl is diagnostic for diabetes. In the absence of unequivocal hyperglycemia, results should be confirmed by repeat testing. The classification and Diagnosis of Diabetes Diabetes Care 2021; 46: S19-S40. Current interpretive data was last revised 2022. Calcium 9.5 8.5 - 10.3 mg/dL [facility] ([place]) Blood 07/03/2024 11:3 6 AM CDT 07/03/2024 12:09 PM CDT us Eliseo Terrazas MD PhD LAB BLOOD ORDERABLES Final Result [facility] ([place]) 1 [facility] [place] [address] * Urinalysis reflex to microscopic (07/03/2024 11:26 AM CDT) Color, ur Yellow Yellow Clarity, ur Clear Clear [facility] ([place]) Specific gravity, ur 1.006 1.003 - 1.030 [facility] ([place]) pH, urine 7.5 [facility] ([place]) Comment: Interpretive Data U rine pH is affected by diet, medications, systemic acid-base disturbances, and renal tubular function. pH may affect urinary stone formation. For example, urine pH below 6.0 may help reduce the tendency for calcium phosphate stones and pH greater than 6.0 may reduce the tendency for uric acid stone formation. Source: [facility] Current Interpretive Data was last revised on 2017 Protein, ur ql Negative Negative [facility] ([place]) Glucose, ur ql Negative Negative [facility] ([place]) Ketones, ur Negative Negative [facility] ([place]) Bilirubin, ur Negative Negative [facility] ([place]) Blood, ur Negative Negative [facility] ([place]) Urobilinogen, ur <2.0 <2.0 mg/dL [facility] ([place]) Nitrite, ur Negative Negative [facility] ([place]) Leukocyte esterase, ur Negative Negative [facility] ([place]) UA reflex comment Reflex conditions for microscopic UA not met. [facility] ([place]) Urine 07/03/2024 11:2 6 AM CDT 07/03/2024 12:01 PM CDT us Eliseo Terrazas MD PhD LAB URINE ORDERABLES Final Result [facility] ([place]) 1 [facility] Department [place] [address] from Last 3 Months Additional Health Concerns Active Problems Noted Date Diagnosed Date Autogenerated Problem 07/17/2024 Insurance [facility] MEDICARE ADVANTAGE [facility] MEDICARE ADVANTAGE Advance Directives For more information, please contact: [phone] * Full Code (Latest Code Status on File) Date Activated Date Inactivated Comments 08/25/2024 9:29 AM 08/25/2024 5:23 PM Care Teams Music Box Mechanic Relationship Specialty Start Date End Date Lisset Napier MD [address] [place] [address] PCP - General Internal Medicine 04/11/24
--- OUTSIDE RECORDS SUMMARY | 2024-08-31 12:31 | XMS_ITS | Encounter Summary ---
Author Organization [facility] Address [address] [place] [address] Care Team Providers Care Day Guard Name Role Phone Lisset Napier MD Primary Care Provider [phone] Reason for Referral * Cardiology (Routine) - Authorized Specialty Diagnoses / Procedures Referred By Iris t Referred To Contact Diagnoses History of surgical closure of patent foramen ovale (PFO) PFO (patent foramen ovale) Procedures Transthoracic Echo (TTE) With Bubble Study Amrita Gomez NP [address] [place] [address] Phone: tel: fax: [facility] [address] [place] [phone] Phone: tel: fax: Referral ID Status Reason Start Date Expiration Date V isits Requested Visits Authorized [id number] Authorized 08/28/2024 09/27/2025 1 1 Encounter Details Date Type Department Care Team (Late Contact Info) Description 08/28/2024 Telephone [facility] [address] [place] [phone] Amrita Gomez NP [address] [place] [address] [address] Social History Tobacco Use Types Packs/Day Years Used Date Smoking Tobacco: Former Cigarettes Q uit: 05/31/2023 Passive Smoke Exposure: Past Smokeless Tobacco: Never AUDIT-C Answer Date Recorded Q1: How often [...] on file Legal Sex Female 5:06 PM GRADES 9 12 TUTOR Gender Identity Not on file Sexual Orientation Not on file documented as of this encounter Miscellaneous Notes * Telephone Encounter - Desirae Jean RN - 08/30/2024 8:52 AM CDT Spoke with pt, TTE with Bubble study scheduled. Pt verbalizes understanding. * Telephone Encounter - Desirae Jean RN - 08/28/2024 11:30 AM CDT LM on requesting pt to call to schedule f/u echo in 2-3 months. * Telephone Encounter - Desirae Jean RN - 08/28/2024 11:24 AM CDT Spoke with Dr. Terrazas, he wanted to let CT know pt did very well with PFO closure. Recommends f/u TTE with bubble study in 2-3 months. Echo ordered, will call pt to schedule. Will forward to CT as FYI. * Telephone Encounter - Alise Renee - 08/28/2024 10:59 AM CDT Mara joy/ [facility] would like a call back the provider who did the pts procedure last week is wanting to discuss some things with CT please advise thank you Contact: documented in this encounter Plan of Treatment Scheduled Orders Name Type Priority Associated Diagnoses Order Schedule Transthoracic Echo (TTE) With Bubble Study Echocardiography Routine History of surgical closure of patent foramen ovale (PFO) PFO (patent foramen ovale) Expected: 08/28/2024, Expires: 11/28/2025 documented as of this encounter Goals Goal Patient Goal Type Associated Problems Recent Progress Patient-Stated? Author Autogenerat ed Goal Care Plan Autogenerated Problem No Malathi Cruz documented as of this encounter Visit Diagnoses Diagnosis History of surgical closure of patent foramen ovale (PFO)- Primary PFO (patent foramen ovale) Ostium secundum type atrial septal defect documented in this encounter Additional Health Concerns Active Problems Noted Date Diagnosed Date Autogenerated Problem 07/17/2024 documented as of this encounter Care Teams Day Guard Relationship Specialty Start Date End Date Lisset Napier MD [address] [place] [address] PCP - General Internal Medicine 04/11/24 documented as of this encounter
--- OUTSIDE RECORDS SUMMARY | 2024-08-31 12:31 | XMS_ITS | Clinical Summary ---
Author Organization [facility] Address [address] [place] [address] Phone Care Team Providers Care Physiologist Name Role Phone Lisset Napier MD Primary Care Provider [phone] Eugenia Mayen APRN, PARALEGAL ASSISTANT Unavailable [phone] Allergies Active Allergy Reactions Criticality Noted Date [...] Furoate (Flonase Sensimist) 27.5 MCG/SPRAY Suspension 1 [place] by Nasal route daily. Active SUMAtriptan (IMITREX) 100 MG Tablet Take 100 mg by mouth daily as needed. Use as directed. May repeat dose in 2 hours if headache recurs. Active amLODIPine (NORVASC) 5 MG Tablet Take 5 mg by mouth daily. Active aspirin EC 81 MG Tablet Delayed Response Take 81 mg by mouth daily. Active cyanocobalamin 1000 MCG Tablet Take 1,000 mcg by mouth. 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 Female 10:56 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 Gender Identity Not on file Sexual Orientation Not on file Last Filed Vital Signs Vital Sign Reading Time Taken Comments Blood Pressure 112/82 07/18/2024 1:41 PM CDT Pulse 79 07/18/2024 1:41 PM CDT Temperature 36.6 C (97.8 F) 07/18/2024 1:41 PM CDT Respiratory Rate 16 07/18/2024 1:41 PM CDT Oxygen Saturation 96% 07/18/2024 1:41 PM CDT Inhaled Oxygen Concentration - - Weight 70.9 kg (156 lb 6.4 oz) 07/18/2024 1:41 P M CDT Height 172.7 cm (5' 8) 07/18/2024 1:41 PM CDT Body Mass Index 23.78 07/18/2024 1:41 PM CDT Plan of Treatment Upcoming Encounters Date Type Department Care Team (Late st Contact Info) Description 10/24/2024 11:00 AM CDT Office Visit [facility] - Neurology [facility] [address] [place] [id number] Eugenia Mayen APRN, PARALEGAL ASSISTANT [address] [place] [address] Health Maintenance Due Date Last Done Comments Hepatitis C Virus (HCV) Screening 1961 Mammogram 1961 Cologuard 2006 Colonoscopy 2006 Colorectal Cancer Screening 2006 Immunochemical Fecal Occult Blood 2006 Pneumococcal Immunization (50+ years) (2 of 2 - PPSV23) 10/31/2015 10/30/2014 Respiratory Syncytial Virus (RSV) Immunization (Adult) (1 - Risk 60-74 years 1-dose series) 2021 TdaP Immunization Completed 10/30/2014 Zoster Immunization Completed 11/21/2019, 0 Influenza Immunization Completed 4, 11/02/2023, 11/04/2022, Additional history exists SARS-COV-2 Immunization Completed 12/02/19 24, 06/15/2020, 05/25/2020 Hepatitis B Immunization Aged Out No longer eligible based on patient's age to complete this topic Human Papillomavirus (HPV) Immunization Aged Out No longer eligible based on patient's age to complete this topic Meningococcal Immunization (ACWY) Aged Out No longer eligible based on patient's age to complete this topic Rotavirus Immunization Aged Out No lo nger eligible based on patient's age to complete this topic Insurance [place] [address] Care Teams Physiologist Relationship Specialty Start Date End Date Lisset Napier MD [address] [place] [address] PCP - General Internal Medicine 03/31/24 Eugenia Mayen, STEPHANIE, PARALEGAL ASSISTANT [address] [place] [address] Nurse Practitioner Advanced Practice Nurse 07/18/24
--- OUTSIDE RECORDS SUMMARY | 2024-08-31 12:31 | XMS_ITS | Clinical Summary ---
Author Organization [facility] [place] [address] Address [address] [place] [address] Care Team Providers Care Fabrication Supervisor Name Role Phone Lisset Napier MD Primary Care Provider + [phone] Allergies Active Allergy Reactions Criticality Noted Date [...] Type Department Care Team Description 08/28/2024 Telephone [facility] Cardiology [address] [place] [phone] Amrita Gomez NP 08/25/2024 8:00 AM CDT - 08/25/2024 9:55 AM CDT Surgery [facility] Heart and Vascular [address] [address] Eliseo Terrazas MD PhD ATRIAL SEPTAL DEFECT (ASD), PATENT FORAMEN OVALE (PFO), FENESTRATION CLOSURE [id number] 08/25/2024 6:35 AM CDT - 08/25/2024 1:18 PM CDT Hospital Encounter [facility] Vascular [address] [address] Eliseo Terrazas MD PhD PFO (patent foramen ovale) Discharge Disposition: Discharge to home or self care 08/10/2024 11:20 AM CDT [address] [address] PFO (patent foramen ovale) 07/17/[address] 8th [place] [address] [place] [address] Eliseo Terrazas MD PhD Reschedule procedure; PFO closure 07/07/[address] [facility] Cardiology [address] [place] [address] 8th [place] [address] [place] [address] Mara Nina CPhT 07/03/2024 11:25 AM CDT [address] [phone] PFO (patent foramen ovale) 06/21/[address] 8th [place] [address] [place] [address] Eliseo Terrazas MD PhD Scheduling PFO closure 06/20/2024 Telephone [facility] Cardiology [address] [place] [address] 8th [place] [address] [place] [address] Eliseo Terrazas MD PhD 06/08/2024 3:00 PM CDT Office Visit [facility] Cardiology [address] [place] [phone] Amrita Gomez NP PFO (patent foramen ovale) (Primary Dx); History of stroke 06/08/2024 Telephone [facility] Cardiology [address] [place] [address] Amrita Gomez NP from Last 3 Months Surgical History Surgery Date Site/Laterality Comments HYSTERECTOMY CHOLECYSTECTOMY WISDOM TOOTH EXTRACTION REFRACTIVE SURGERY Bilateral lasik CARDIAC CATHETERIZATION 08/25/2024 N/A Procedure: ATRIAL SEPTAL DEFECT (ASD), PATENT FORAMEN OVALE (PFO), FENESTRATION CLOSURE [id number]; Surgeon: Eliseo Terrazas MD PhD; Location: [facility] CARDIAC MANAGEMENT LECTURER; Service: Cardiovascular; Laterality: N/A; Medical devices from this surgery are in the Medical Devices section. 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 Gender Identity Not on file Sexual [...] 08/25/2024 7:00 AM CDT Plan of Treatment Health Maintenance Due Date Last Done Comments Breast Cancer Screening-Mammogram 1961 Colon Cancer Screening-Colonoscopy 1960 Depression Screening 1961 Hepatitis C Screening 1961 Hepatitis B Screening 1979 Regular Well Visit/Exam 18-64 1979 DTaP/Tdap/Td Vaccine (2 - Td or Tdap) 10/30/2024 10/30/2014 Influenza Vaccine (#1) 2024 , 11/02/2023, 11/04/2022, Additional history exists Pneumococcal vaccine <65 Aged Out 10/30/2014 No longer eligible based on patient's age to complete this topic Zoster Vaccine Completed 11/21/2019, 03/24/2019 Covid-19 Vaccine Completed 12/02/2023, , 05/25/2020 Goals Goal Patient Goal Type Associated Problems Recent Progress Patient-Stated? Author Autogenerat ed Goal Care Plan Autogenerated Problem No Cruz, Malathi Medical Devices Implanted Type Area Geological Sample Tester Device Identifier Shelf Expiration Date Model / Serial / Lot [employer] V[employer] System Closure Repair Femoral Artery Suture Mediated Perclose Prostyle 95913-20 - [id number] - [id number] Implanted:Qty : 1 on 08/25/2024 by Eliseo Terrazas MD PhD at [facility] PDA Closure Device N/A: Atrial Septal Defect [employer] 05/29/2026 12321-30 / [id number] / [id number] [employer] Occluder Cvasc Pfo Closure Amplatzer Talisman [id number] 9-[id number]-[id number] - [id number] - [id number] Implanted:Qty : 1 on 08/25/2024 by Eliseo Terrazas MD PhD at [facility] Septal Defect Closure Device N/A: Atrial Septal Defect [employer] 03/31/2027 9-[id number] / [id number] / [id number] Procedures Procedure Name Priority Date/Time Associated Diagnosis [...] AM CDT Narrative 08/25/2024 1:02 PM CDT [facility] Cardiac [place] [address] Transthoracic Echocardiographic Report Patient Name: LORIE ELIZALDE S : 1960 (64y 6m) Gender: F Study Date: 08/25/2024 10:42:50 AM Ht(Inch): 68 Wt(Lb): 158.07 BSA: 1.85 Public Health Program Manager: Heidi Chandler [facility] Location: 5514 Order Provider: OMARDARAMAREBRIGIDO Heart Rate: 67 BMI: 24.03 BP: 144 [...] Procedure Note Shlomo Mendoza MD - 08/25/2024 [facility] [place] [address] Transthoracic Echocardiographic Report Patient Name: LORIE ELIZALDE S : 1960 (64y 6m) Gender: F Study Date: 08/25/2024 10:42:50 AM Ht(Inch): 68 Wt(Lb): 158.07 BSA: 1.85 Public Health Program Manager: Heidi Chandler [facility] Location: [facility] Order Provider: ARTIS REYNOLDS Heart Rate: 67 [...] it. Electronically signed by: Rosendo Christianson M.D. us Artis Reynolds BRAKESHOE REPAIRER IMG XR PROCEDURES Ave l Result * (ABNORMAL) POCT Activated clotting time, low range (08/25/2024 9:27 AM CDT) ACT 310(H) 123 - 168 sec POC Performer [id number] [facility] POC Device Number [id number] [facility] Blood 08/25/2024 9:27 AM CDT 08/25/2024 9:27 AM CDT us Eliseo Terrazas MD PhD LAB POCT ORDERABLES - KAUR CE Final Result [facility] Department [place] [address] * ATRIAL SEPTAL DEFECT CLOSURE (08/25/2024 9:12 AM CDT) Anatomical Region Laterality Modality X-Ray Angiograph y Narrative 08/25/2024 9:27 AM CDT PFO closure Interventional fellow: Dr. Reyes Cobian fuel efficient automobile designer: Dr. Kan Han HPI: 64-year-old female with [...] Using ultrasound directed micropuncture technique, an 8 Faroese sheath inserted into the right femoral vein and an 8 Faroese 25 cm sheath in the left femoral vein using percutaneous approach. Six Faroese Perclose device was deployed in both sites prior to sheath insertion. Imaging was performed via the left femoral vein with an 8 Faroese Saig[employer]on [employer] intracardiac echo system. Interatrial septum was crossed with a 6 Faroese multipurpose catheter 1.5 mm J-tip Amplatzer wire. This was exchanged for a 9 Faroese 45 degree Trevisio sheath for deployment of [...] Long-term cardiology follow-up will be provided in [place], [place] with Dr. Amrita Gomez. Eliseo Terrazas MD PhD CV CARDIAC CATH PROCEDURES Final Result * (ABNORMAL) POCT Activated clotting time, low range (08/25/2024 9:02 AM CDT) ACT 385(H) 123 - 168 sec POC Performer [id number] [facility] POC Device Number [id number] [facility] Blood 08/25/2024 9:02 AM CDT 08/25/2024 9:02 AM CDT us Eliseo Terrazas MD PhD LAB POCT ORDERABLES - KAUR CE Final Result Performing Organization Address [facility]/ZIP Co de Phone Number [facility] Department [place] [address] * (ABNORMAL) POCT Activated clotting time, low range (08/25/2024 8:45 AM CDT) ACT 279(H) 123 - 168 sec POC Performer [id number] [facility] POC Device Number [id number] [facility] Blood 08/25/2024 8:45 AM CDT 08/25/2024 8:45 AM CDT us Eliseo Terrazas MD PhD LAB POCT ORDERABLES - KAUR CE Final Result Performing Organization Address [facility] Co de Phone Number [facility] [place] [address] * (ABNORMAL) POCT Activated clotting time, low range (08/25/2024 8:31 AM CDT) ACT 273(H) 123 - 168 sec POC Performer [id number] [facility] POC Device Number [id number] [facility] Blood 08/25/2024 8:31 AM CDT 08/25/2024 8:31 AM CDT us Eliseo Terrazas MD PhD LAB POCT ORDERABLES - KAUR CE Final Result Performing Organization Address City/[facility]/[place] [address] * Check Sample (08/25/2024 7:55 AM CDT) ABO Rh B Positive [facility] OTHER 08/25/2024 7:55 AM CDT 08/25/2024 9:08 AM CDT us Eliseo Terrazas MD PhD LAB BLOOD ORDERABLES Final Result Performing Organization Address [facility] Co de Phone Number [facility] [place] [address] BJ * Type and screen (08/25/2024 7:30 AM CDT) ABO Rh B Positive Huong, indirect Negative [facility] Blood 08/25/2024 7:30 AM CDT 08/25/2024 7:53 AM CDT us Eliseo Terrazas MD PhD LAB BLOOD BANK TEST ORDERA BLES Final Result Performing Organization Address [facility] de Phone Number [facility] [place] [address] * ECG 12 lead (08/25/2024 6:42 AM CDT) Ventricular Rate EKG/Min 71 BPM [facility] Atrial Rate 71 BPM [facility] RI-Interval (MSEC) 164 ms [facility] QRS-Interval (MSEC) 90 ms [facility] QT-Interval (MSEC) 430 ms [facility] QTc 467 ms [facility] P Novice 46 degrees [facility] R Novice -46 degrees [facility] T Novice 7 degrees [facility] Diagnosis Normal sinus rhythm Left anterior fascicular block Abnormal ECG No previous ECGs available Confirmed by LENO HEATON M.D ([id number]) on 08/25/2024 10:30:46 AM [facility] 08/25/2024 6:42 AM CDT 08/25/2024 10:30 AM CDT us Eliseo Terrazas MD PhD ECG ORDERABLES Final Resu lt Performing Organization Address City/[facility] Co de Phone Number [facility] * eGFR (08/10/2024 11:26 AM CDT) eGFR [...] 6 AM CDT 08/10/2024 12:01 PM CDT Eliseo Terrazas MD PhD LAB BLOOD ORDERABLES Final Result [facility] ([place]) 1 [facility] Department of Laboratories [place], [place] [id number] * Differential, auto (08/10/2024 11:26 AM CDT) [...] on 2017. Imm gran pct 0.1 % [facility] ([place]) Comment: Interpretive Data Percent cell [...] revised on 2017. Monocyte pct 9.0 % [facility] ([place]) Comment: Interpretive Data Percent cell [...] revised on 2017. Basophil pct 1.2 % [facility] ([place]) Comment: Interpretive Data Percent cell count reference ranges are not reported, since discordance with absolute values may lead to misinterpretation of CBC data. Current Interpretive Data was last revised on 2017. Blood 08/10/2024 11:2 6 AM CDT 08/10/2024 12:01 PM CDT us Eliseo Terrazas MD PhD LAB BLOOD ORDERABLES Final Result [facility] ([place]) 1 [facility] Department [place] [address] * Urinalysis reflex to microscopic (08/10/2024 11:26 AM CDT) Color, ur Yellow Yellow Clarity, ur Clear Clear [facility] ([place]) Specific gravity, ur 1.015 1.003 - [...] tendency for uric acid stone formation. Source: [facility] IP Current Interpretive Data was last revised on 2017 Protein, ur ql Negative Negative [facility] ([place]) Glucose, ur ql Negative Negative [facility] ([place]) Ketones, ur Negative Negative [facility] A ([place]) Bilirubin, ur Negative Negative [facility] ([place]) Blood, ur Negative Negative [facility] ([place]) Urobilinogen, ur <2.0 <2.0 mg/dL [facility] ([place]) Nitrite, ur Negative Negative [facility] ([place]) Leukocyte esterase, ur Negative Negative [facility] ([place]) UA reflex comment Reflex conditions for microscopic UA not met. [facility] Urine 08/10/2024 11:2 6 AM CDT 08/10/2024 12:02 PM CDT Narrative [facility] ([place] - 08/10/2024 12:08 PM CDT Please send results to . Thank you. us Eliseo Terrazas MD PhD LAB URINE ORDERABLES Final Result [facility] ([place]) 1 [facility] Department [place] [address] * CBC with auto differential (08/10/2024 11:26 AM CDT) WBC 6.81 3.80 - 9.90 K/cumm Hgb 12.8 11.9 - 15.5 g/dL [facility] ([place]) Hct 38.5 35.6 - 45.5 % [facility] ([place]) Plt 264 150 - 400 K/cumm [facility] ([place]) MPV 11.7 9.1 - 12.[address] [facility] ([place]) RBC 4.28 3.90 - 5.20 M/cumm [facility] ([place]) MCV 90.0 81.3 - 96.[address] [facility] ([place]) MCH 29.9 27.1 - 33.[address] [facility] ([place]) MCHC 33.2 32.3 - 35.7 g/dL [facility] ([place]) RDW CV 13.2 11.1 - 14.9 % [facility] RDW SD 43.8 35.7 - 48.[address] [facility] ([place]) NRBC abs 0.00 0.00 - 0.01 K/cumm [facility] ([place]) Blood 08/10/2024 11:2 6 AM CDT 08/10/2024 12:01 PM CDT Narrative [facility] - 08/10/2024 12:06 PM CDT Please fax results to . Thank you. Please send results to . Thank you. us Eliseo Terrazas MD PhD LAB BLOOD ORDERABLES Final Result [facility] ([place]) 1 [facility] Department [place] [address] * Basic metabolic panel (08/10/2024 11:26 AM CDT) Sodium 141 135 - 145 mmol/L Potassium, pl 4.0 3.3 - 4.9 mmol/L [facility] ([place]) Chloride 102 97 - 110 mmol/L [facility] ([place]) CO2 26 22 - 32 mmol/L [facility] ([place]) Anion gap 13 2 - 15 mmol/L [facility] ([place]) BUN 21 6 - 25 mg/dL [facility] ([place]) Creatinine 0.93 0.60 - 1.10 mg/dL [facility] ([place]) Glucose 87 70 - 199 mg/dL [facility] ([place]) Comment: Interpretive Data Fasting glucose [...] 2022. Calcium 9.4 8.5 - 10.3 mg/dL [facility] ([place]) Blood 08/10/2024 11:2 6 AM CDT 08/10/2024 12:01 PM CDT Narrative [facility] ([place]) - 08/10/2024 12:44 PM CDT Please fax results to . Thank you. Please send results to . Thank you. us Eliseo Terrazas MD PhD LAB BLOOD ORDERABLES Final Result [facility] ([place]) 1 [facility] [place] [address] * eGFR (07/03/2024 11:36 AM [...] PhD LAB BLOOD ORDERABLES Final Result [facility] ([place]) 1 [facility] [place] [address] * Differential, auto (07/03/2024 11:36 AM CDT) Neutrophil abs 3.29 1.50 - 6.50 K/cumm Imm gran abs 0.01 0.00 - 0.10 K/cumm [facility] ([place]) Lymphocyte abs 1.59 0.80 - 3.30 K/cumm [facility] ([place]) Monocyte abs 0.52 0.20 - 0.80 K/cumm [facility] ([place]) Eosinophil abs 0.09 0.00 - 0.50 K/cumm [facility] ([place]) Basophil abs 0.06 0.00 - 0.10 K/cumm [facility] ([place]) Neutrophil pct 59.1 % [facility] ([place]) Comment: Interpretive Data Percent cell count reference ranges are not reported, since discordance with absolute values may lead to misinterpretation of CBC data. Current Interpretive Data was last revised on 2017. Imm gran pct 0.2 % [facility] ([place]) Comment: Interpretive Data Percent cell count reference ranges are not reported, since discordance with absolute values may lead to misinterpretation of CBC data. Current Interpretive Data was last revised on 2017. Lymphocyte pct 28.6 % [facility] ([place]) Comment: Interpretive Data Percent cell count reference ranges are not reported, since discordance with absolute values may lead to misinterpretation of CBC data. Current Interpretive Data was last revised on 2017. Monocyte pct 9.4 % [facility] ([place]) Comment: Interpretive Data Percent cell count reference [...] revised on 2017. Basophil pct 1.1 % [facility] ([place]) Comment: Interpretive Data Percent cell count reference ranges are not reported, since discordance with absolute values may lead to misinterpretation of CBC data. Current Interpretive Data was last revised on 2017. Blood 07/03/2024 11:3 6 AM CDT 07/03/2024 12:08 PM CDT Eliseo Terrazas MD PhD LAB BLOOD ORDERABLES Final Result [facility] ([place]) 1 [facility] Department [place] [address] * CBC with auto differential (07/03/2024 11:36 AM CDT) WBC 5.56 3.80 - 9.90 K/cumm Hgb 12.8 11.9 - 15.5 g/dL [facility] ([place]) Hct 38.4 35.6 - 45.5 % [facility] ([place]) Plt 263 150 - 400 K/cumm [facility] ([place]) MPV 11.6 9.1 - 12.3 fL [facility] ([place]) RBC 4.21 3.90 - 5.20 M/cumm [facility] ([place]) MCV 91.2 81.3 - 96.4 fL [facility] ([place]) MCH 30.4 27.1 - 33.3 pg [facility] ([place]) MCHC 33.3 32.3 - 35.7 g/dL [facility] ([place]) RDW CV 13.4 11.1 - 14.9 % [facility] ([place]) RDW SD 45.1 35.7 - 48.1 fL [facility] ([place]) NRBC abs 0.00 0.00 - 0.01 K/cumm [facility] ([place]) Blood 07/03/2024 11:3 6 AM CDT 07/03/2024 12:08 PM CDT us Eliseo Terrazas MD PhD LAB BLOOD ORDERABLES Final Result [facility] ([place]) 1 [facility] [place] [address] * (ABNORMAL) Basic metabolic panel (07/03/2024 11:36 AM CDT) Sodium 137 135 - 145 mmol/L Potassium, pl 3.9 3.3 - 4.9 mmol/L [facility] ([place]) Chloride 102 97 - 110 mmol/L [facility] ([place]) CO2 24 22 - 32 mmol/L [facility] ([place] Anion gap 11 2 - 15 mmol/L [facility] ([place]) BUN 19 6 - 25 mg/dL [facility] ([place]) Creatinine 0.97 0.60 - 1.10 mg/dL [facility] ([place]) Glucose 60(L) 70 - 199 mg/dL [facility] Comment: Interpretive Data Fasting glucose [...] MD PhD LAB BLOOD ORDERABLES Final Result [facility] ([place]) 1 [facility] [place] [address] * Urinalysis reflex to microscopic (07/03/2024 11:26 [...] tendency for uric acid stone formation. Source: [facility] Current Interpretive Data was last revised on [...] 6 AM CDT 07/03/2024 12:01 PM CDT Eliseo Terrazas MD PhD LAB URINE ORDERABLES Final Result [facility] ([place]) 1 [facility] [place] [address] from Last 3 Months Additional Health Concerns Active Problems Noted Date Diagnosed Date Autogenerated Problem 07/17/2024 Insurance [facility] MEDICARE ADVANTAGE [facility] MEDICARE [facility] Address: [place] [address] Advance Directives For more information, please contact: [phone] * Full Code (Latest Code Status on File) Date Activated Date Inactivated Comments 08/25/2024 9:29 AM 08/25/2024 5:23 PM Care Teams Fabrication Supervisor Relationship Specialty Start Date End Date Lisset Napier MD [address] [place] [address] PCP - General Internal Medicine 04/11/24
--- OUTSIDE RECORDS SUMMARY | 2024-08-31 12:31 | XMS_ITS | Clinical Summary ---
Author Organization [facility] Address [facility] [place] [address] Care Team Providers Care Urban Gardening Specialist Name Role Phone Unavailable Primary Care Provider [...] Screening with HPV 1991 Mammogram Screening 2001 Pneumococcal Vaccine: 50+ Ye ars (1 of 1 - PCV) 2011 Zoster Vaccines (1 of 2) 2011 COVID-19 Vaccine ( - 2023-2 5 season) 2023 RSV Immunization or 60+ Years (1 [...]
--- OUTSIDE RECORDS SUMMARY | 2024-08-31 12:31 | XMS_ITS | Encounter Summary ---
Author Organization [facility] Healthcare Address [address] [place] [address] Care Team Providers Care Underwater Photographer Name Role Phone Lisset Napier MD Primary Care Provider + [phone] Encounter Details Date Type Department Care Team ([facility] st Contact Info) Description 05/26/2024 Orders Only [facility] Health Information Management [address] [place] [id number] Scanning, Provider Social History Tobacco Use Types Packs/Day Years Used Date Smoking Tobacco: Former Cigarettes Q uit: 05/31/2023 Passive Smoke Exposure: Past Smokeless Tobacco: Never Comments Unknown Sex and Gender Information Value Date Recorded Sex Assigned at Not on file 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 Gender Identity Not on file Sexual Orientation Not on file documented as of this encounter Plan of Treatment Not on file documented as of this encounter Procedures Procedure Name Priority Date/Time Associated Diagnosis Comments CARDIOLOGY DOCUMENT SCAN 05/26/2024 9:29 PM CDT documented in this encounter Results * Cardiology Document Scan (05/26/2024 9:29 PM CDT) Anatomical Region Laterality Modality Other us Provider Scanning [facility] CARDIAC SERVICES PROCEDURES Final Result documented in this encounter Visit Diagnoses Not on filedocumented in this encounter Care Teams Underwater Photographer Relationship Specialty Start Date End Date Lisset Napier MD [address] [place] [address] PCP - General Internal Medicine 04/11/24 documented as of this encounter
== END 2024-08-31 12:29 | disposition home or self-care (01) ==
PROVIDERS: PCP Internal Medicine; Visit Provider Internal Medicine
DX: Z12.31 Encounter for screening mammogram for malignant neoplasm of breast (principal); M85.89 Other specified disorders of bone density and structure, multiple sites; M81.0 Age-related osteoporosis without current pathological fracture
CPT/HCPCS: 77063; 77067; 77080

== ENCOUNTER 2024-10-17 09:20 | Outpatient (CLI) | payer MEDICARE, SELFPAY ==
--- OUTSIDE RECORDS SUMMARY | 2012-07-12 06:00 | XMS_ITS | Continuity of Care Document ---
Author Organization [facility] Address [address] [place] [address] Phone Care Team Providers Care Drop Wire Builder Name Role Phone Alvaro Riojas MD Unavailable Unavailable Procedures Procedure Date Office/outpatient visit,est, mod 2012 Supplemental Report Supplemental Report Office/outpatient visit,est, [facility] 2012 Supplemental Report Office/outpatient visit,est, mod 2012 MRI Upper extr joint, w/o contrast Office consultation, moderate 3 Advance Directives Directive Yes / No Effective Date File Name No Information Encounters Encounter Description Practice Location Reason(s) For Visit Diagnoses Date Provider Providers Copied on Encounter Office[place] [facility] [place] [facility] [employer] [facility], [address], [id number], tel:[phone] [facility] [employer] SPRAIN ROTATOR CUFF Beulah John. [address] [facility], [address], [place], [place], [id number] , [place]. tel:[phone] Office/outpat ient visit,est, [facility] [employer] [facility], [address], [id number], [place] tel:[phone] [facility] [employer] SPRAIN SHOULDER/ARM NOS Beulah John. [address] [facility], [address], [place], [place], [id number] , [place]. tel: [phone] Office/outpat ient visit,est, mod [facility], [address] [facility] [address], [place], [place], [id number], tel:[phone] [facility] ROTATOR CUFF SYND NOS Beulah John. [address] [facility], [address], [place], [place], [id number] , [place]. tel:[phone] [facility], [address] [facility] [address], [place], [place], [id number], tel:[phone] [facility] PAIN IN LIMBSPRAIN ROTATOR CUFF [facility]. [address] [place] [address], [address], [place], [place], [id number] , [place]. tel:[phone] Referring Provider: Alvaro Campuzano, [address] [facility] [address], [place], [address] . tel:[phone] Office consultation, moderate [facility], [address] [facility] [address], [place], [place], [id number], tel:[phone] [facility] [employer] [facility] SPRAIN SHOULDER/ARM NOS Beulah John. [address] [place] [address], [address], [place], [place], [id number] , [place]. [phone] Family History Family Member Type Diagnosis Age At Onset No Information Payers Payer name Insurance type Covered alliance party ID Authoriza tiswapnil(s) [facility] [id number] Social History Type Description Quantity Date Captured [...]
[2024-10-17 09:35] VITALS: BP 105/70; PULSE 72; RESP 14; TEMP 36.6; O2SAT 98; BMI 24.5
--- OUTSIDE RECORDS SUMMARY | 2024-10-17 09:39 | XMS_ITS | Clinical Summary ---
Author Organization [facility] Address [facility] [place] [address] Care Team Providers Care Picc Nurse Name Role Phone Unavailable Primary Care Provider [...]
--- OUTSIDE RECORDS SUMMARY | 2024-10-17 09:39 | XMS_ITS | Clinical Summary ---
Author Organization [facility] Address [address] [place] [address] Phone Care Team Providers Care Preschool Head Teacher Name Role Phone Lisset Napier MD Primary Care Provider [phone] Eugenia Mayen APRN, TEACHER'S AIDE Unavailable [phone] Allergies Active Allergy Reactions Criticality Noted Date [...] Furoate (Flonase Sensimist) 27.5 MCG/SPRAY Suspension 1 [place] by Nasal route daily. 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 Gender Identity Not on file Sexual Orientation [...] Visit [facility] - Neurology [facility] [address] [place] [id number] Eugenia Mayen APRN, TEACHER'S AIDE [address] [place] [address] Health Maintenance Due Date Last Done Comments Hepatitis C Virus (HCV) Screening 1960 Mammogram 1960 Cologuard 2006 Colonoscopy 2006 Colorectal Cancer Screening 2006 Immunochemical Fecal Occult Blood 2006 Pneumococcal Immunization (50+ years) (2 of 2 - PCV20 or PCV21) 10/31/2015 10/30/2014 Respiratory Syncytial Virus (RSV) Immunization (Adult) (1 - Risk 60-74 years 1-dose series) 2021 Influenza Immunization (#1) 10/30/202410/30, 11/02/2023, 11/04/2022, Additional history exists TdaP Immunization Completed 10/30/2014 Zoster Immunization Completed 11/21/2019, SARS-COV-2 Immunization Completed 12/02/19, 06/15/2020, 05/25/2020 Hepatitis B Immunization Aged Out [...] to complete this topic Insurance MEDICARE C [facility] Care Teams Preschool Head Teacher Relationship Specialty Start Date End Date Lisset Napier MD [address] [place] [address] PCP - General Internal Medicine 03/31/24 Eugenia Mayen APRN, TEACHER'S AIDE [address] [place] [address] Nurse Practitioner Advanced Practice Nurse 07/18/24
--- OUTSIDE RECORDS SUMMARY | 2024-10-17 09:39 | XMS_ITS | Encounter Summary ---
Author Organization [facility] Address [address] [place] [address] Care Team Providers Care Postpartum Rn Name Role Phone Lisset Napier MD Primary Care Provider + [phone] Encounter Details Date Type Department Care Team ([facility] st Contact Info) Description 05/26/2024 Orders Only [facility] Health Information Management [address] [place] [address] Scanning, Provider Social History Tobacco Use Types Packs/Day Years Used Date Smoking Tobacco: Former Cigarettes Q uit: 05/31/2023 Passive Smoke Exposure: Past Smokeless Tobacco: Never Comments Unknown Sex and Gender Information Value Date Recorded Sex Assigned at Not on file 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
--- OUTSIDE RECORDS SUMMARY | 2024-10-17 09:39 | XMS_ITS | Clinical Summary ---
Author Organization [facility] [address] Address [address] [place] [address] Care Team Providers Care Wash And Greaser Name Role Phone Lisset Napier MD Primary Care Provider + [phone] Allergies Active Allergy Reactions Criticality Noted Date [...] Type Department Care Team Description 08/28/2024 Telephone [facility] Cardiology [address] [place] [phone] Amrita Gomez NP 08/25/2024 8:00 AM CDT - 08/25/2024 9:55 AM CDT Surgery [facility] Heart and Vascular [address] [address] Eliseo Terrazas MD PhD ATRIAL SEPTAL DEFECT (ASD), PATENT FORAMEN OVALE (PFO), FENESTRATION CLOSURE [id number] 08/25/2024 6:35 AM CDT - 08/25/2024 1:18 PM CDT Hospital Encounter [facility] Heart [facility] Vascular [address] [address] Eliseo Terrazas MD PhD PFO (patent foramen ovale) Discharge Disposition: Discharge to home or self care 08/10/2024 11:20 AM CDT Lab [address] [address] PFO (patent foramen ovale) 07/17/2024 Telephone [facility] Cardiology [address] [facility] 8th [place] [address] [place] [address] Eliseo Terrazas MD PhD Reschedule procedure; PFO closure from Last 3 Months Surgical History Surgery Date Site/Laterality Comments HYSTERECTOMY CHOLECYSTECTOMY WISDOM TOOTH EXTRACTION REFRACTIVE SURGERY Bilateral lasik CARDIAC CATHETERIZATION 08/25/2024 N/A Procedure: ATRIAL SEPTAL DEFECT (ASD), PATENT FORAMEN OVALE (PFO), FENESTRATION CLOSURE [id number]; Surgeon: Eliseo Terrazas MD PhD; Location: [facility] CARDIAC ASSIGNMENT EDITOR; Service: Cardiovascular; Laterality: N/A; Medical devices from [...] on file 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 Gender Identity Not on file Sexual Orientation [...] Screening 1979 Regular Well Visit/Exam 18-64 1979 Covid-19 Vaccine (4 - Pfizer risk season) 2024 12/02/2023, 06/15/2020, 05/25/2020 DTaP/Tdap/Td Vaccine (2 - Td or Tdap) 10/30/2024 10/30/2014 Influenza Vaccine (#1) 2024 4, 11/02/2023, 11/04/2022, Additional history exists Pneumococcal vaccine <65 Aged Out 10/30/2014 No longer eligible based on patient's age to complete this topic Zoster Vaccine Completed 11/21/2019, 03/24/2019 Medical Devices Implanted Type Area Power Project Manager Device Identifier Shelf Expiration Date Model / Serial / Lot Baltazar Vascular System Closure Repair Femoral Artery Suture Mediated Perclose Prostyle 08893-96 - [id number] - [id number] Implanted:Qty : 1 on 08/25/2024 by Eliseo Terrazas MD PhD at [facility] PDA Closure Device N/A: Atrial Septal Defect Baltazar Vascular 05/29/2026 68528-82 / [id number] Baltazar Vascular Occluder Cvasc Pfo Closure Amplatzer Talisman [id number] 9-Pfo-3025 - [id number] - [id number] Implanted:Qty : 1 on 08/25/2024 by Eliseo Terrazas MD PhD at [facility] Septal Defect Closure Device N/A: Atrial Septal Defect Baltazar Vascular 03/31/2027 9-PFO-302 5 / [id number] / [id number] Procedures Procedure Name Priority Date/Time Associated Diagnosis [...] AM CDT Narrative 08/25/2024 1:02 PM CDT [facility] [place] [address] Transthoracic Echocardiographic Report Patient Name: LORIE MCRAE S : 1960 (64y 6m) Gender: F Study Date: 08/25/2024 10:42:50 AM Ht(Inch): 68 Wt(Lb): 158.07 BSA: 1.85 Plastic Surgery Manager: Heidilauri Chandler [facility] Location: 5514 Order Provider: ARTIS MERCER Heart Rate: 67 BMI: 24.03 BP: 144 / 86 Ref Provider: ARTIS MERCER PROCEDURES: Echocardiographic Report: Limited transthoracic 2D echo, [...] Procedure Note Shlomo Mendoza MD - 08/25/2024 [facility] [place] [address] Transthoracic Echocardiographic Report Patient Name: LORIE MCRAE S : 1960 (64y 6m) Gender: F Study Date: 08/25/2024 10:42:50 AM Ht(Inch): 68 Wt(Lb): 158.07 BSA: 1.85 Plastic Surgery Manager: Heidi Chandler [facility] Location: [facility] Order Provider: ARTIS MERCER Heart Rate: 67 BMI: 24.03 BP: 144 / 86 Ref Provider:ARTIS MERCER PROCEDURES: Echocardiographic Report: Limited transthoracic 2D echo, [...] Mendoza MD 08/25/2024 1:02:11 PM CDT Artis Mercer NP CV ECHO PROCEDURES Fin al Result [...] Electronically signed by: Rosendo Christianson M.D. Artis Mercer EXPORT CLERK IMG XR PROCEDURES Ave l Result * (ABNORMAL) POCT Activated clotting time, low range (08/25/2024 9:27 AM CDT) ACT 310(H) 123 - 168 sec POC Performer [id number] [facility] POC Device Number [id number] [facility] Blood 08/25/2024 9:27 AM CDT 08/25/2024 9:27 AM CDT Eliseo Terrazas MD PhD LAB POCT ORDERABLES - KAUR CE Final Result [facility] One [facility] Department [place] [address] * ATRIAL SEPTAL DEFECT CLOSURE (08/25/2024 9:12 AM CDT) Anatomical Region Laterality Modality X-Ray Angiograph y Narrative 08/25/2024 9:27 AM CDT PFO closure Interventional fellow: Dr. Reyes Cobian air technician: Dr. Kan Han HPI: 64-year-old female with [...] Using ultrasound directed micropuncture technique, an 8 Cymraes sheath inserted into the right femoral vein and an 8 Cymraes 25 cm sheath in the left femoral vein using percutaneous approach. Six Cymraes Perclose device was deployed in both sites prior to sheath insertion. Imaging was performed via the left femoral vein with an 8 Cymraes Acuson AcuNav intracardiac echo system. Interatrial septum was crossed with a 6 Cymraes multipurpose catheter 1.5 mm J-tip Amplatzer wire. This was exchanged for a 9 Cymraes 45 degree Trevisio sheath for deployment of [...] Long-term cardiology follow-up will be provided in [place], [place] with Dr. Amrita Gomez. us Eliseo Terrazas MD PhD CV CARDIAC CATH PROCEDURES Final Result * (ABNORMAL) POCT Activated clotting time, low range (08/25/2024 9:02 AM CDT) ACT 385(H) 123 - 168 sec POC Performer [id number] [facility] POC Device Number [id number] [facility] Blood 08/25/2024 9:02 AM CDT 08/25/2024 9:02 AM CDT us Eliseo Terrazas MD PhD LAB POCT ORDERABLES - KAUR CE Final Result Performing Organization Address City/[facility]/ZIP Co de Phone Number [facility] [place] [place] [address] * (ABNORMAL) POCT Activated clotting time, low range (08/25/2024 8:45 AM CDT) ACT 279(H) 123 - 168 sec POC Performer [id number] [facility] POC Device Number [id number] [facility] Blood 08/25/2024 8:45 AM CDT 08/25/2024 8:45 AM CDT us Eliseo Terrazas MD PhD LAB POCT ORDERABLES - KAUR CE Final Result Performing Organization Address [facility]/[place] [address] * (ABNORMAL) POCT Activated clotting time, low range (08/25/2024 8:31 AM CDT) ACT 273(H) 123 - 168 sec POC Performer [id number] [facility] POC Device Number [id number] [facility] Blood 08/25/2024 8:31 AM CDT 08/25/2024 8:31 AM CDT us Eliseo Terrazas MD PhD LAB POCT ORDERABLES - KAUR CE Final Result Performing Organization Address City/[facility]/ZIP Co de Phone Number [facility] [place] [place] [address] * Check Sample (08/25/2024 7:55 AM CDT) ABO Rh B Positive [facility] HCLL OTHER 08/25/2024 7:55 AM CDT 08/25/2024 9:08 AM CDT us Eliseo Terrazas MD PhD LAB BLOOD ORDERABLES Final Result Performing Organization Address City/[facility]/ZIP Co de Phone Number [facility] Department [place] [address] [facility] * Type and screen (08/25/2024 7:30 AM CDT) ABO Rh B Positive Huong, indirect Negative [facility] Blood 08/25/2024 7:30 AM CDT 08/25/2024 7:53 AM CDT us Eliseo Terrazas MD PhD LAB BLOOD BANK TEST ORDERA BLES Final Result Performing Organization Address City/[facility] Co de Phone Number [facility] Department [place] [address] * ECG 12 lead (08/25/2024 6:42 AM CDT) Ventricular Rate EKG/Min 71 BPM [facility] Atrial Rate 71 BPM [facility] [place]-Interval (MSEC) 164 ms [facility] QRS-Interval (MSEC) 90 ms [facility] QT-Interval (MSEC) 430 ms [facility] QTc 467 ms [facility] P Seguin 46 degrees [facility] R Seguin -46 degrees [facility] T Seguin 7 degrees [facility] Diagnosis Normal sinus rhythm Left anterior fascicular block Abnormal ECG No previous ECGs available Confirmed by LENO HEATON M.D ([id number]) on 08/25/2024 10:30:46 AM [facility] 08/25/2024 6:42 AM CDT 08/25/2024 10:30 AM CDT us Eliseo Terrazas MD PhD ECG ORDERABLES Final Resu lt [facility] * eGFR (08/10/2024 11:26 AM CDT) eGFR [...] BLOOD ORDERABLES Final Result Performing Organization Address City/[facility] Co de Phone Number [facility] ([place]) 1 [facility] Department [place] [address] * Differential, auto (08/10/2024 11:26 AM CDT) [...] ORDERABLES Final Result [facility] ([place]) 1 [facility] Department [place] [address] * Urinalysis reflex to microscopic (08/10/2024 11:26 [...] for uric acid stone formation. Source: [facility] Current Interpretive Data was last revised on [...] MD PhD LAB URINE ORDERABLES Final Result [facility] ([place]) 1 [facility] Department of Laboratories [place], [place] [id number] * CBC with auto differential (08/10/2024 11:26 [...] RDW SD 43.8 35.7 - 48.1 fL [facility] ([place] NRBC abs 0.00 0.00 - 0.01 K/cumm [facility] ([place] Blood 08/10/2024 11:2 6 AM CDT 08/10/2024 12:01 PM CDT Narrative [facility] ([place]) - 08/10/2024 12:06 PM CDT Please fax results to . Thank you. Please send results to . Thank you. us Eliseo Terrazas MD PhD LAB BLOOD ORDERABLES Final Result [facility] ([place]) 1 [facility] Department [place] [address] * Basic metabolic panel (08/10/2024 11:26 AM CDT) Sodium 141 135 - 145 mmol/L Potassium, pl 4.0 3.3 - 4.9 mmol/L [facility] ([place]) Chloride 102 97 - 110 mmol/L [facility] ([place]) CO2 26 22 - 32 mmol/L [facility] ([place]) Anion gap 13 2 - 15 mmol/L [facility] ([place]) BUN 21 6 - 25 mg/dL [facility] ([place]) Creatinine 0.93 0.60 - 1.10 mg/dL [facility] ([place]) Glucose 87 70 - 199 mg/dL [facility] ([place]) Comment: Interpretive Data Fasting glucose [...] 9.4 8.5 - 10.3 mg/dL [facility] ([place]) Blood 08/10/2024 11:2 6 AM CDT 08/10/2024 12:01 PM CDT Narrative [facility] ([place]) - 08/10/2024 12:44 PM CDT Please fax results to . Thank you. Please send results to . Thank you. us Eliseo Terrazas MD PhD LAB BLOOD ORDERABLES Final Result [facility] FAT[facility] ([place]) 1 [facility] Department [place] [address] from Last 3 Months Insurance [facility] MEDICARE ADVANTAGE [facility] MEDICARE ADVANTAGE Advance Directives For more information, please contact: [phone] * Full Code (Latest Code Status on File) Date Activated Date Inactivated Comments 08/25/2024 9:29 AM 08/25/2024 5:23 PM Care Teams Wash And Greaser Relationship Specialty Start Date End Date Lisset Napier MD [address] [place] [address] PCP - General Internal Medicine 04/11/24
[2024-10-17] MEDS: ZOLEDRONIC ACID 5 MG/100 ML 100 ML 400 MG IVPB (10:00)
[2024-10-17 10:19] VITALS: BP 113/70; PULSE 72; RESP 14; O2SAT 98
--- NOTE | 2024-10-17 10:25 | PC.NURSE ---
Tolerated Reclast infusion well. see MAR/patient care notes
== END 2024-10-17 09:21 | disposition home or self-care (01) ==
PROVIDERS: PCP Internal Medicine; Visit Provider Internal Medicine
DX: M81.0 Age-related osteoporosis without current pathological fracture (principal)
CPT/HCPCS: 96374; J3489

== ENCOUNTER 2025-01-08 01:23 | Day surgery (SDC) | payer MEDICARE, MEDICAID, SELFPAY ==
--- OUTSIDE RECORDS SUMMARY | 2012-07-12 05:00 | XMS_ITS | Continuity of Care Document ---
Author Organization [facility] Address [address] [place] [address] Phone Care Team Providers Care Analytics Associate Name Role Phone Alvaro Riojas MD Unavailable Unavailable Procedures Procedure Date Office/outpatient visit,est, mod 2012 Supplemental Report Supplemental Report Office/outpatient visit,est, [facility] 2012 Supplemental Report Office/outpatient visit,est, mod 2012 MRI Upper extr joint, w/o contrast Office consultation, moderate 3 Advance Directives Directive Yes / No Effective Date File Name No Information Encounters Encounter Description Practice Location Reason(s) For Visit Diagnoses Date Provider Providers Copied on Encounter [place] [facility] [place] [facility] [employer] [facility], [address], [id number], tel:[phone] [facility] [email or web address] SPRAIN ROTATOR CUFF Beulah John. [address] [facility], [address], [place], [place], [id number] , [place]. tel:[phone] Office/outpat ient visit,est, [facility] [employer] [facility], [address], [id number], [place] tel:[phone] [facility] [email or web address] SPRAIN SHOULDER/ARM NOS Beulah John. [address] [facility], [address], [place], [place], [id number] , [place]. tel:[phone] Office/outpat ient visit,est, mod [facility], [address] [facility] [address], [place], [place], [id number], tel:[phone] [facility] ROTATOR CUFF SYND NOS Beulah John. [address] [facility], [address], [place], [place], [id number] , [place]. tel:[phone] [facility], [address] [facility] [address], [place], [place], [id number], tel:[phone] [facility] PAIN IN LIMBSPRAIN ROTATOR CUFF [facility]. [address] [place] [address], [address], [place], [place], [id number] , [place]. tel:[phone] Referring Provider: Alvaro Campuzano, [address] [facility] [address], [place], [address] . tel:[phone] Office consultation, moderate [facility], [address] [facility] [address], [place], [place], [id number], tel:[phone] [facility] [employer] [facility] SPRAIN SHOULDER/ARM NOS Beulah John. [address] [place] [address], [address], [place], [place], [id number] , [place]. [phone] Family History Family Member Type Diagnosis Age At Onset No Information Payers Payer name Insurance type Covered green party ID Authoriza tiswapnil(s) [facility] [id number] Social History Type Description Quantity Date Captured Comments Sex Female Smoking Status No Information Chief Complaint And Reason For Visit No Information Reason For Referral Reason For Referral No Information Plan Of Treatment Date Type Action Status Goal Tobacco cessation counseling completed Referral Ordered: MRI Upper extr joint, w/o contrast RT shoulder Appointment date/timeframe: 05/03/2012 ordered History Of Present Illness Encounter Date Complaint History Of Prese nt Illness No Information Functional Status Date Functional Assessmen t No Information Instructions Date Instruction Additional Infor mation No Information Assessments Type Assessment Date No Information Patient Care Teams Name Effective Dates (start - stop) Status Members No Information
[2025-01-02 09:09] VITALS: BMI 28.3
--- OUTSIDE RECORDS SUMMARY | 2025-01-08 01:26 | XMS_ITS | Encounter Summary ---
Author Organization [facility] Address [address] [place] [address] Phone Care Team Providers Care Unloader Operator Name Role Phone Lisset Napier MD Primary Care Provider [phone] Encounter Details Date Type Department Care Team (Late st Contact Info) Description 12/21/2024 Telephone [facility] Medicine Cardiology [address] [facility] Advanced Medicine 8th [place] [address] [place] [address] Eliseo Terrazas MD PhD [address] [place], [place] [id number] Social History Tobacco Use Types Packs/Day Years [...] on file 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
--- OUTSIDE RECORDS SUMMARY | 2025-01-08 01:26 | XMS_ITS | Clinical Summary ---
Author Organization [facility] [address] Address [address] [place] [address] Care Team Providers Care Radio Program Checker Name Role Phone Lisset Napier MD Primary Care Provider + [phone] Allergies Active Allergy Reactions Criticality Noted Date [...] Encounters Date Type Department Care Team Description 01/05/2025 Telephone [facility] Cardiology [address] [place] [phone] Shine Fonseca MD 12/21/[address] [facility] Medicine Cardiology [address] [facility] 8th [place] [address] [place] [address] Eliseo Terrazas MD PhD from Last 3 Months Surgical History Surgery Date Site/Laterality Comments HYSTERECTOMY CHOLECYSTECTOMY WISDOM TOOTH EXTRACTION REFRACTIVE SURGERY Bilateral lasik CARDIAC CATHETERIZATION 08/25/2024 N/A Procedure: ATRIAL SEPTAL DEFECT (ASD), PATENT FORAMEN OVALE (PFO), FENESTRATION CLOSURE [id number]; Surgeon: Eliseo Terrazas MD PhD; Location: [facility] CARDIAC PASS WORKER; Service: Cardiovascular; Laterality: N/A; Medical devices from [...] on file 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 Gender Identity Not on file Sexual [...] Screening 1979 Regular Well Visit/Exam 18-64 1979 Pneumococcal vaccine <65 (2 of 2 - PPSV23, PCV20, or PCV21) 12/25/2014 10/30/2014 Covid-19 Vaccine (4 - 2024-2 6 season) 2024 12/02/2023, 06/15/2020, 05/25/2020 DTaP/Tdap/Td Vaccine (2 - Td or Tdap) 10/30/2024 10/30/2014 Influenza Vaccine (#1) 2024 , 11/02/2023, 11/04/2022, Additional history exists Zoster Vaccine Completed 11/21/2019, 03/24/2019 Medical Devices Implanted Type Area Light Rail Operator Device Identifier Shelf Expiration Date Model / Serial / Lot Baltazar Vascular System Closure Repair Femoral Artery Suture Mediated Perclose Prostyle 68806-62 - [id number] - [id number] Implanted:Qty : 1 on 08/25/2024 by Eliseo Terrazas MD PhD at [facility] PDA Closure Device N/A: Atrial Septal Defect Baltazar Vascular 05/29/2026 93087-96 / [id number] Baltazar Vascular Occluder Cvasc Pfo Closure Amplatzer Talisman [id number] 9-Pfo-3025 - [id number] - [id number] Implanted:Qty : 1 on 08/25/2024 by Eliseo Terrazas MD PhD at [facility] Septal Defect Closure Device N/A: Atrial Septal Defect Baltazar Vascular 03/31/2027 9-PFO-302 5 / [id number] / [id number] Insurance [facility] Address: [address] [address] [facility] Address: [address] [address] [place] [address] [id number] Advance Directives For more information, please contact: [phone] * Full Code (Latest Code Status on File) Date Activated Date Inactivated Comments 08/25/2024 9:29 AM 08/25/2024 5:23 PM Care Teams Radio Program Checker Relationship Specialty Start Date End Date Lisset Napier MD [address] [place], [place] [id number] PCP - General Internal Medicine 04/11/24
--- OUTSIDE RECORDS SUMMARY | 2025-01-08 01:26 | XMS_ITS | Clinical Summary ---
Author Organization [facility] Address [address] [place] [address] Phone Care Team Providers Care Batch Tester Name Role Phone Lisset Napier MD Primary Care Provider [phone] Eugenia Mayen APRN, LEAD SECURITY OFFICER Unavailable [phone] Allergies Active Allergy Reactions Criticality Noted Date [...] Furoate (Flonase Sensimist) 27.5 MCG/SPRAY Suspension 1 Fiatt by Nasal route daily. Active SUMAtriptan (IMITREX) [...] Encounters Date Type Department Care Team Description 12/21/2024 Telephone [facility] [address] [place] [address] Eugenia Mayen APRN, LEAD SECURITY OFFICER 12/15/2024 10:30 AM CDT Office Visit [facility] [address] [place] [address] Eugenia Mayen, DISTRIBUTED ENERGY SYSTEMS CONSULTANT, LEAD SECURITY OFFICER Hemiparesis affecting left side as late effect of cerebrovascular accident (CVA) (Primary Dx); History of multiple strokes; PFO (patent foramen ovale); Hyperlipidemia LDL goal <70; Memory changes; Syncope, unspecified syncope type; Migraine without aura and without status migrainosus, not intractable; Hypertension, unspecified type Discharge Disposition: Discharged to home or Selfcare 12/15/2024 Travel from Last 3 Months Family History [...] on file 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 Gender Identity Not on file Sexual Orientation Not on file Last Filed Vital Signs Vital Sign Reading Time Taken Comments Blood Pressure 108/72 12/15/2024 10:27 AM CDT Pulse 77 12/15/2024 10:27 AM CDT Temperature 36.3 C (97.4 F) 12/15/2024 10:27 AM CDT Respiratory Rate 16 12/15/2024 10:27 AM CDT Oxygen Saturation 96% 12/15/2024 10:27 AM CDT Inhaled Oxygen Concentration - - Weight 73.6 kg (162 lb 3.2 oz) 12/15/2024 10:27 AM CDT Height 172.7 cm (5' 8) 12/15/2024 10:27 AM CDT Body Mass Index 24.66 12/15/2024 10:27 AM CDT Plan of Treatment Upcoming Encounters Date Type Department Care Team (Late st Contact Info) Description 06/12/2025 10:30 AM CDT Office Visit [facility] [address] [place] [address] Eugenia Mayen APRN, LEAD SECURITY OFFICER [address] [place] [address] Health Maintenance Due Date Last Done Comments Hepatitis C Virus (HCV) Screening 1961 Mammogram 1961 Cologuard 2006 Colonoscopy 2006 Colorectal Cancer Screening 2006 Immunochemical Fecal Occult Blood 2006 Respiratory Syncytial Virus (RSV) Immunization (Adult) (1 - Risk 50-74 years 1-dose series) 2011 Pneumococcal Immunization (50+ years) (2 of 2 - PCV20 or PCV21) 10/31/2015 10/30/2014 Welcome to Medicare (IPPE) G0402 03/01/2024 TdaP Immunization Completed 10/30/2014 Zoster Immunization Completed 11/21/2019, 0 Influenza Immunization Completed 5, 11/12/2023, 11/02/2023, Additional history exists SARS-COV-2 Immunization Completed 12/13/19 25, 12/02/2023, 06/15/2020, Additional history exists Hepatitis B Immunization Aged Out No longer [...] to complete this topic Insurance MEDIC[facility] [place] [id number] Care Teams Batch Tester Relationship Specialty Start Date End Date Lisset Napier MD [address] [place] [address] PCP - General Internal Medicine 03/31/24 Eugenia Mayen APRN, LEAD SECURITY OFFICER [address] [place] [address] Nurse Practitioner Advanced Practice Nurse 07/18/24
--- OUTSIDE RECORDS SUMMARY | 2025-01-08 01:26 | XMS_ITS | Clinical Summary ---
Author Organization [facility] Address [facility] [place] [address] Care Team Providers Care Back Shoe Cutter Name Role Phone Unavailable Primary Care Provider [...] of 2) 2011 COVID-19 Vaccine ( - 2024-2 6 season) 2024 Influenza Adult (#1) 2024 RSV Immunization or 60+ Years (1 - 1-dose 75+ series) 01/28/2036 Hepatitis A Vaccines Aged Out No long er eligible based on patient's age to complete this topic Meningococcal B Vaccine Aged Out No l onger eligible based on patient's age to complete this topic Meningococcal Vaccine Aged Out No shannon becka eligible based on patient's age to complete this topic RSV Immunizations Under 20 Months Aged Out No longer eligible based on patient's age to complete this topic
--- OUTSIDE RECORDS SUMMARY | 2025-01-08 01:26 | XMS_ITS | Encounter Summary ---
Author Organization [facility] Address [address] [place] [address] Care Team Providers Care Rail Car Unloader Name Role Phone Lisset Napier MD Primary Care Provider [phone] Encounter Details Date Type Department Care Team ([facility] st Contact Info) Description 05/26/2024 Orders Only [facility] Health Information Management [address] [place] [id number] Scanning, Provider Social History Tobacco Use Types Packs/Day Years Used Date Smoking Tobacco: Former Cigarettes Q uit: 05/31/2023 Passive Smoke Exposure: Past Smokeless Tobacco: Never Comments Unknown Sex and Gender Information Value Date Recorded Sex Assigned at Not on file 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
[2025-01-08 09:59] VITALS: BP 109/82; PULSE 126; RESP 20; TEMP 36.3; O2SAT 96; BMI 27.8
--- NOTE | 2025-01-08 10:04 | WPDANESEPPF ---
Anes - Initial Pre Proc Eval Procedure: Operation Date: 01/08/25 11:00 Proposed Procedures p Screening Colonoscopy - Mitchel Gottlieb MD Date/Time: 01/08/25 10:04 Surgeon: Mitchel Gottlieb MD Pre Op Diagnosis: Personal history of colon polyps, unspecified Patient Data Age: 64 Gender: F Height: 1.6 m Weight: 71.2 kg Last Vital Signs Temp 36.3 C L 01/08/25 09:59 Pulse 126 H 01/08/25 09:59 Resp 20 01/08/25 09:59 BP 109/82 01/08/25 09:59 Pulse Ox 96 01/08/25 09:59 O2 Del Method Room Air 01/08/25 09:59 Allergies Allergy/AdvReac Type Severity Reaction Status Date / Time No Known Allergies Allergy Verified 01/02/25 09:09 Home Medications ?Medication ?Instructions ?Recorded ?Confirmed ?Type omeprazole 20 mg capsule,delayed 20 mg PO DAILY #60 caps 12/11/19 01/08/25 Rx release fluoxetine 20 mg capsule 60 mg PO DAILY 10/26/22 01/08/25 History hydroxyzine HCl 25 mg tablet 25 mg PO TID 10/26/22 01/08/25 History amlodipine 5 mg tablet 5 mg PO DAILY 05/24/24 01/08/25 History aspirin 81 mg tablet,delayed 81 mg PO DAILY 05/24/24 01/08/25 History release (Adult Aspirin Regimen) atorvastatin 80 mg tablet 80 mg PO QPM 05/24/24 01/08/25 History cyanocobalamin (vitamin B-12) 1,000 mcg PO DAILY 05/24/24 01/08/25 History 1,000 mcg capsule Laboratory Tests 01/08/25 09:55 POC Capillary Glucose 99 mg/dl (65-105) Patient hx anesthesia problems: none Family hx anesthesia problems: none Results Review: All pre-operative results and documents have been reviewed as part of the pre-operative evaluation. [facility] Past Medical History Medical History (Updated 01/08/25 @ 10:05 by Doyle Winn MD) PFO with atrial septal aneurysm CVA x 2, endo repair at [facility] in 08/23 Bee sting GERD (gastroesophageal reflux disease) Family history of colon cancer in father Adenomatous colon polyp GERD (gastroesophageal reflux disease) Depression Stroke L sided at age 26 years, now with residual R sided weakness Surgical History Surgical History History of cholecystectomy Family History Family History Sibling Cerebrovascular accident Father Heart disease s/p CABG Hypertension Rectal adenocarcinoma Alzheimer disease Parkinson disease Social History Social History Smoking packs per day: 1 Smoking cigarettes per day: 20.0 Years smoked: 40 Smoking pack-years: 40.00 Smoking status: Former smoker Tobacco type: cigarettes Second hand tobacco smoke exposure: No Alcohol intake: never Substance use: current Living arrangements: with family Gender identity (if verbalized by the patient): Female Spiritual care concerns: No Agree to blood products: Yes Anes - Eval Final PreProcedure Day of Procedure 01/08/25 10:04 Patient weight: overweight Heart: regular rate and rhythm Lungs: clear to auscultation Airway: Mallampati scale class II Neurological: alert and oriented Last oral intake: >/= 8 hours ASA classification: III Emergent: no Anesthetic plan: proceed Anesthesia type and monitoring: general GIVS and standard monitoring Results Review: All pre-operative results and documents have been reviewed as part of the pre-operative evaluation. Informed Consent: The patient's anesthetic plan and its attendant risks and benefits were discussed with the patient/family/POA. Questions were solicited and answers provided to the satisfaction of the patient/family/POA.
[2025-01-08] MEDS: LACTATED RINGERS 1,000 ML 150 ML IV CONT (10:09)
[2025-01-08 10:10] VITALS: PULSE 80
--- NOTE | 2025-01-08 10:13 | PM.HPGS ---
History of Present Illness History of Present Illness Consent: Risks, benefits, and alternatives have been discussed and questions answered. Patient agrees to proceed with procedure. Chief complaint: Personal history of colon polyps, unspecified Narrative: Lorie Mcrae is a 64 year old female with colon polyp 5 years ago, also father had rectal cancer Review of Systems Review of Systems: All systems reviewed & are unremarkable except as noted in HPI and below PMFSH Past Medical History Medical History (Updated 01/08/25 @ 10:05 by Doyle Winn MD) PFO with atrial septal aneurysm CVA x 2, endo repair at [facility] in 08/23 Bee sting GERD (gastroesophageal reflux disease) Family history of colon cancer in father Adenomatous colon polyp GERD (gastroesophageal reflux disease) Depression Stroke L sided at age 26 years, now with residual R sided weakness Surgical History Surgical History History of cholecystectomy Family History Family History Sibling Cerebrovascular accident Father Heart disease s/p CABG Hypertension Rectal adenocarcinoma Alzheimer disease Parkinson disease Social History Social History Smoking packs per day: 1 Smoking cigarettes per day: 20.0 Years smoked: 40 Smoking pack-years: 40.00 Smoking status: Former smoker Tobacco type: cigarettes Second hand tobacco smoke exposure: No Alcohol intake: never Substance use: current Living arrangements: with family Gender identity (if verbalized by the patient): Female Spiritual care concerns: No Agree to blood products: Yes Meds Home Medications and Allergies Home Medications ?Medication ?Instructions ?Recorded ?Confirmed ?Type omeprazole 20 mg capsule,delayed 20 mg PO DAILY #60 caps 12/11/19 01/08/25 Rx release fluoxetine 20 mg capsule 60 mg PO DAILY 10/26/22 01/08/25 History hydroxyzine HCl 25 mg tablet 25 mg PO TID 10/26/22 01/08/25 History amlodipine 5 mg tablet 5 mg PO DAILY 05/24/24 01/08/25 History aspirin 81 mg tablet,delayed 81 mg PO DAILY 05/24/24 01/08/25 History release (Adult Aspirin Regimen) atorvastatin 80 mg tablet 80 mg PO QPM 05/24/24 01/08/25 History cyanocobalamin (vitamin B-12) 1,000 mcg PO DAILY 05/24/24 01/08/25 History 1,000 mcg capsule Allergies Allergy/AdvReac Type Severity Reaction Status Date / Time No Known Allergies Allergy Verified 01/02/25 09:09 Vital Signs Vital Signs - 24 hr 01/08/25 09:59 01/08/25 10:10 Temperature 97.4 F L Pulse Rate 126 H 80 Respiratory Rate 20 Blood Pressure 109/82 Pulse Oximetry 96 Oxygen Delivery Room Air Exam Const: General: comfortable and no acute distress HENMT: Face/Nose/Sinus: Normal nares present Eyes: General: appearance normal, both eyes and all related structures Neck: Neck: no JVD Resp: Auscultation: clear to auscultation bilaterally Cardio: Rate: regular rate Rhythm: regular rhythm GI: Inspection: non-distended GI Palp: Yes Soft to palpation Skin: General skin exam: normal color Extrem: General: normal to inspection Psych: Mental Status: mental status grossly normal Assessment and Plan Assessment and plan (1) Family history of colon cancer in father: Code(s): Z80.0 - Family history of malignant neoplasm of digestive organs Status: Acute Assessment and Plan: colonoscopy (2) Adenomatous colon polyp: Code(s): D12.6 - Benign neoplasm of colon, unspecified Status: Acute
[2025-01-08 10:26] VITALS: BP 100/65; PULSE 70; RESP 18; O2SAT 93
[2025-01-08 10:36] VITALS: BP 100/68; PULSE 74; RESP 20; O2SAT 95
[2025-01-08 10:46] VITALS: BP 107/68; PULSE 72; RESP 18; O2SAT 94
== END 2025-01-08 10:54 | disposition home or self-care (01) ==
PROVIDERS: PCP Internal Medicine; Referring Provider Internal Medicine Gastroenterology; Visit Provider Internal Medicine Gastroenterology
PROC: 0DJD8ZZ Inspection of Lower Intestinal Tract, Via Natural or Artificial Opening Endoscopic (ICD-10-PCS; CPT 45378; principal; 2025-01-08 11:00)
DX: Z12.11 Encounter for screening for malignant neoplasm of colon (principal); K57.30 Diverticulosis of large intestine without perforation or abscess without bleeding; K64.8 Other hemorrhoids; Z86.0100 Personal history of colon polyps, unspecified; Z80.0 Family history of malignant neoplasm of digestive organs; Z79.899 Other long term (current) drug therapy; Z87.891 Personal history of nicotine dependence
CPT/HCPCS: G0105; 82948; J2704; J7120

== ENCOUNTER 2025-02-02 17:03 | Emergency (ER) | payer MEDICARE, MEDICAID, SELFPAY ==
[2025-02-02 17:03] VITALS: BP 124/88; PULSE 98; RESP 18; TEMP 37.3; O2SAT 92
--- NOTE | 2025-02-02 17:11 | ED.SKABFB ---
HPI - Skin/Abscess/Foreign Bdy General Chief complaint: Burn/Smoke Inhalation Stated complaint: burn left foot Time Seen by Provider: 02/02/25 17:11 Source: patient Mode of arrival: ambulatory Limitations: no limitations History of Present Illness HPI narrative: Patient is a 65-year-old female with a steamer fell onto her left foot for about 5 seconds until she realized the injury and removed her foot. Tetanus shot up-to-date. She sustained a second-degree burn full-thickness 1% total body surface area. This happened 5 days ago. It is getting worse with swelling and redness. She is not diabetic. complaint: rash (Burn) Onset (ago): day(s) (5) Tetanus up to date: yes Location: L foot (Dorsum) Severity: moderate Severity scale (1-10): 4 Quality: burning and sharp Pain Consistency: constant Relieving factors: rest Exacerbating factors: palpation and movement Context: other (Patient dropped a steamer onto the left foot dorsum for about 5 seconds and then removed her foot where she sustained a second-degree burn) Associated symptoms: denies other symptoms Treatments prior to arrival: none Related Data Home Medications ?Medication ?Instructions ?Recorded ?Confirmed ?Last Taken ?Type fluoxetine 20 mg capsule 60 mg PO DAILY 10/26/22 01/08/25 01/07/25 History hydroxyzine HCl 25 mg tablet 25 mg PO TID 10/26/22 01/08/25 01/07/25 History amlodipine 5 mg tablet 5 mg PO DAILY 05/24/24 01/08/25 01/07/25 History aspirin 81 mg tablet,delayed 81 mg PO DAILY 05/24/24 01/08/25 01/07/25 History release (Adult Aspirin Regimen) atorvastatin 80 mg tablet 80 mg PO QPM 05/24/24 01/08/25 01/07/25 History cyanocobalamin (vitamin B-12) 1,000 mcg PO DAILY 05/24/24 01/08/25 01/07/25 History 1,000 mcg capsule Allergies Allergy/AdvReac Type Severity Reaction Status Date / Time bee venom protein (honey Allergy Intermediate Unknown Verified 02/02/25 17:13 bee) (bees) venom-wasp Allergy Intermediate Unknown Verified 02/02/25 17:13 Review of Systems Review of Systems: All systems reviewed & are unremarkable except as noted in HPI and below Constitutional: Constitutional: Reports no additional constitutional complaints Eyes: Eyes: Reports no additional eye complaints ENT: Reports system reviewed and no additional complaints, except as documented Cardiovascular: Cardiovascular: Reports no additional cardiovascular complaints Respiratory: Respiratory: Reports no additional respiratory complaints Gastrointestinal: Gastrointestinal: Reports no additional gastrointestinal complaints Genitourinary: Genitourinary: Reports no additional female genitourinary complaints Musculoskeletal: Musculoskeletal: Reports no additional musculoskeletal complaints Integumentary/Breasts: Skin/Breast: Reports system reviewed and no additional complaints, except as docu Neurologic: Reports system reviewed and no additional complaints, except as documented Psychiatric: Psychiatric: Reports no additional psychiatric complaints Endocrine: Endocrine: Reports no additional endocrine complaints Hematologic/Lymphatic: Hematologic/Lymphatic: Reports no additional hematologic/lymphatic complaints Allergic/Immunologic: Allergic/Immunologic: Reports no additional allergic/immunologic complaints PMFSH Past Medical History Medical History PFO with atrial septal aneurysm CVA x 2, endo repair at [facility] in 08/23 Bee sting GERD (gastroesophageal reflux disease) Family history of colon cancer in father Adenomatous colon polyp GERD (gastroesophageal reflux disease) Depression Stroke L sided at age 26 years, now with residual R sided weakness Surgical History Surgical History History of cholecystectomy Family History Family History Sibling Cerebrovascular accident Father Heart disease s/p CABG Hypertension Rectal adenocarcinoma Alzheimer disease Parkinson disease Social History Social History Smoking packs per day: 1 Smoking cigarettes per day: 20.0 Years smoked: 40 Smoking pack-years: 40.00 Smoking status: Former smoker Tobacco type: cigarettes Second hand tobacco smoke exposure: No Alcohol intake: never Substance use: current Substance use type: does not use Living arrangements: with family Gender identity (if verbalized by the patient): Female Spiritual care concerns: No Agree to blood products: Yes Exam Const: General: healthy appearing Nutritional Appearance: well nourished Orientation/consciousness: patient oriented x3 HENMT: Head: normal to inspection Ears: external ears normal Face/Nose/Sinus: Normal external nose present Eyes: Conjunctivae: conjunctivae normal Pupils: Equal, round and reactive pupils present EOM: EOMs intact bilaterally Neck: Neck: normal visual inspection, no lymphadenopathy and no meningeal signs Chest: Chest palpation & inspection: normal inspection of the chest Resp: Effort & Inspection: normal respiratory effort, not labored, no retractions and not tachypneic Auscultation: clear to auscultation bilaterally, no crackles, no rales and no rhonchi Cardio: Rate: regular rate Rhythm: regular rhythm Heart sounds: no murmurs GI: Inspection: non-distended Auscultation: normal bowel sounds : General: Yes bladder normal to palpation Back/Spine/Pelvis: Back: no CVA tenderness Skin: General skin exam: No normal color Rashes: no rashes Wounds: wound noted Other: Left foot dorsum has a 1% total body surface area the size of her hand second-degree burn full-thickness with redness and inflammation of the foot at day 5 Neuro: General: patient oriented x3, moves all extremities and no meningeal signs Extrem: General: normal to inspection, no clubbing, cyanosis or edema and no pedal edema Psych: Mental Status: mental status grossly normal Affect: normal affect Attitude: cooperative Course Vital Signs Vital signs: Vital Signs Temperature 37.3 C 02/02/25 17:03 Pulse Rate 98 02/02/25 17:03 Respiratory Rate 18 02/02/25 17:03 Blood Pressure 124/88 02/02/25 17:03 Pulse Oximetry 92 02/02/25 17:03 Oxygen Delivery Room Air 02/02/25 17:03 Temperature 37.3 C 02/02/25 17:03 Pulse Rate 98 02/02/25 17:03 Respiratory Rate 18 02/02/25 17:03 Blood Pressure 124/88 02/02/25 17:03 Pulse Oximetry 92 02/02/25 17:03 Oxygen Delivery Room Air 02/02/25 17:03 [facility] Narrative Medical decision making narrative: Patient is a 65-year-old female with a burn to her left foot after a steamer fell on top for around 5 seconds. Tetanus shot up-to-date. Keflex. Silvadene. Bandage. Differential Diagnosis Differential Diagnosis: Burn Discharge Plan Discharge Clinical Impression: Second degree burn Cellulitis Qualifiers: Site of cellulitis: extremity Site of cellulitis of extremity: lower extremity Laterality: left Qualified Code(s): L03.116 - Cellulitis of left lower limb Patient Disposition: Home Condition: Stable Instructions: Antibiotic Form, Cellulitis (ED), Second-Degree Burn (ED) Additional Instructions: Please keep area clean with soap and water. Change dressing twice a day by putting cream on and then a bandage on top. Patient Language: Greek Prescriptions: New silver sulfadiazine [Silvadene] 1 % cream 1 applic topical BID PRN (Reason: wound healing) Qty: 50 0RF Rx Instructions: apply a 1.5 mm thickness cephalexin 500 mg capsule 500 mg PO TID 10 Days Qty: 30 0RF No Action hydroxyzine HCl 25 mg tablet 25 mg PO TID fluoxetine 20 mg capsule 60 mg PO DAILY atorvastatin 80 mg tablet 80 mg PO QPM amlodipine 5 mg tablet 5 mg PO DAILY aspirin [Adult Aspirin Regimen] 81 mg tablet,delayed release (DR/EC) 81 mg PO DAILY cyanocobalamin (vitamin B-12) 1,000 mcg capsule 1,000 mcg PO DAILY omeprazole 20 mg capsule,delayed release(DR/EC) 20 mg PO DAILY Qty: 60 0RF Follow-up/Referrals: Lisset Napier MD [Primary Care Provider, Internal Medicine] Time of Disposition: 17:21
--- NOTE | 2025-02-02 17:39 | PC.NURSE ---
Left foot dressed with silvadene cream, telfa and WAYLON.
== END 2025-02-02 17:30 | disposition home or self-care (01) ==
PROVIDERS: Emergency Provider Emergency Medicine; PCP Internal Medicine
DX: T25.222A Burn of second degree of left foot, initial encounter (principal); T31.0 Burns involving less than 10% of body surface; L03.116 Cellulitis of left lower limb; X13.1XXA Other contact with steam and other hot vapors, initial encounter; Z87.891 Personal history of nicotine dependence
CPT/HCPCS: 16020; 99283; A9270